=== PATIENT | male | born 1970 | race African-American/Black ===

== ENCOUNTER 2016-07-28 09:41 | Emergency (ER) | payer MEDICARE, MEDICAID ==
[~2016-07-28] VITALS: Ht 154.9 cm; Wt 127.0 kg
[~2016-07-28 09:41] MED LIST: ADVAIR DISK28 PUFFS IN; ALBUTEROL-200 PUFFS/ IH; ALBUTEROL2 PUFFS/17 IN; ALBUTEROL2.5 MG/NEB IN; AZITHROMYCIN250 MG PO; CIPRO 500MG TA500 MG PO; DELTASONE5 MG PO; DOXYCYCLINE HY100 M3 PO; DUONEB 3 MG/3 ML3 ML IH; FLEXERIL10 MG PO; HYDROCHLOROTH12.5 M1 PO; HYDROCHLOROTHIA25 M1 PO; HYDROCODONE/ACE1 TA5 PO; JENTADUETO1 TAB PO; KEFLEX 500MG.500 MG PO; LEVAQUIN 750 M750 MG PO; LEVAQUIN500 MG PO; LODINE400 MG PO; MEDROL 4MG. DOSE4 MG PO; NEURONTIN 300M300 MG PO; NORCO 325 MG-51 TAB PO; PREDNISONE 20MG20 MG; PREDNISONE 20MG20 MG PO; SALMETEROL-F28 PUFF1 IN; SINGULAIR10 MG PO; SPIRIVA18 MCG IH; SYMBICORT1 AE1 IH; TESSALON PERLE100 M1 PO; TORADOL10 M2 PO; TYLENOL W/CODEI1 TA2 PO; VENTOLIN H0.09 MG/AC IH; ZITHROMAX Z PA250 MG PO; ZITHROMAX Z-PA250 M1 PO
--- NOTE | 2016-07-28 09:53 | Emergency Room Report ---
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 Y Clinical Suspician of Infection? N Mental Status: 1 - Regular (Normal Baseline) Sepsis Risk:Possible Sepsis Risk Have you (or family members/close friends) recently traveled outside the [place]? N If Yes, where/when: Have you had exposure to infectious disease within the past month? N TB? Other? Specify: Comment The patient is brought in by ambulance. He says he has been sick for a couple of days. He has been feverish, coughing, generalized body aches, wheezing, and shortness of breath. He has a sore throat this morning. He does not remember whether he had a flu shot this year. He has asthma and chronic obstructive pulmonary disease. He is on a nebulizer at home, he did use a treatment this morning. He denies vomiting or diarrhea. ALLERGIES Coded Allergies: Penicillins (I-HIVES 04/23/15) Home Medications Reported Medications ALBUTEROL (Albuterol 0.083% Neb) 2.5 MG IN QIDP Tiotropium [place] (Spiriva) 18 MCG IH DAILY Hydrochlorothiazide (Hydrochlorothiazide 12.5MG) 12.5 MG PO DAILY Montelukast Sodium (Singulair) 10 MG PO QAM ALBUTEROL (Ventolin Hfa) 1 PUFF IH Q6H6 PRN SHORTNESS OF BREATH BUDESONIDE/FORMOTEROL FUMARATE (Symbicort 160-4.5 Mcg Inhaler) 1 PUFF IH BID LINAGLIPTIN/METFORMIN HCL (Jentadueto 2.5 MG-1000 MG Tab) 1 TAB PO BID #60 History Medical History General CAD? No Angina: No [place]: No Hypertension? Yes Hyperlipidemia? No CHF? No DVT? No PE? No COPD? Yes Asthma? Yes Anemia? No GERD? No Gastric ulcers? No GI Bleed? No Hernia? No Thyroid Problems? No Hypothyroidism? No CVA? No Seizures? No Diabetes? Yes Insulin Dependent: No Insulin Pump: No Home FSBS? Yes Renal Insuffiency? No End Stage Renal Disease? No UTI? No Stones? No BPH? No GB Disease: No Nephritic Syndrome? No Asplenia? No Hepatitis? No Sickle Cell Disease? No Arthritis? No Migraines? No Cataracts? No Glaucoma? No MRSA? No HIV? No TB? No Anxiety? No Depression? No Cancer? No More? No Immunization Hx DT/Tetanus > 10 YRS Surgical Hx Previous Surgery?Y CIRCUMCISION Social History Smoking Hx Smoker: Current Every Day Smoker Tobacco: Yes Type Cigarettes Packs/day < 1 Pack Alcohol Alcohol: Yes Review of Systems All Other Systems Reviewed and Negative Constitutional fever, malaise, weakness ENT throat pain. Respiratory cough, shortness of breath, wheezing Cardiovascular denies chest pain Gastrointestinal denies abdominal pain, denies diarrhea, denies vomiting Musculoskeletal muscle pain Psychiatric/Neurological headache (chronic, no change) Physical Exam Vital Signs Vital Signs Date Time Temp Pulse Resp B/P Pulse O2 O2 Flow FiO2 Ox Delivery Rate 07/28 1150 98 20 97/59 94 07/28 1109 96 20 126/81 94 07/28 1024 91 20 122/69 100 10 07/28 0943 98.4 97 20 130/80 98 General Appearance normal appearance, WD/WN Eye Exam - bilateral eye normal exam, bilateral eye PERRL, bilateral eye EOMI Ear, Nose, Throat hearing grossly normal, normal ENT inspection, tympanic membranes and pharynx normal Neck normal inspection, non-tender, supple, full range of motion Respiratory Status Yes: trachea midline, chest symmetrical, non productive cough. No: respiratory distress. Lung Sounds bilateral: wheezing. 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 No Results/Orders Laboratory Tests 07/28/16 1025: Influenza Type A Ag NOT DETECTED, Influenza Type B Ag NOT DETECTED 07/28/16 0950: Lactic Acid 2.4 H 07/28/16 0950: Sodium 140, Potassium 3.5, Chloride 103, Carbon Dioxide 28, BUN 15, Creatinine 1.1, Estimated Creat Clear 152, Estimated GFR (MDRD) 72, Glucose 143 H, Calcium 8.9, Total Bilirubin 0.8, AST 17, ALT 49, Alkaline Phosphatase 59, Total Protein 7.2, Albumin 3.6, Globulin 3.6 H, Albumin/Globulin Ratio 1.0 L, WBC 7.1, RBC 5.19, Hgb 16.4, Hct 47.2, MCV 91.0, RDW 13.3, Plt Count 274, MPV 6.5 L, Gran % 57.1, Gran # 4.1, Lymphocytes % 28.0, Monocytes % 4.3, Eosinophils % 9.6, Basophils % 0.9, Lymphocytes # 2.0, Monocytes # 0.3, Eosinophils # 0.7 H, Basophils # 0.1, PUBS MCHC 34.7, MCH 31.6 H Current Medication Orders Sig/Bethany Start time Last Medication Dose Route Stop Time Status Admin Azithromycin 500 MG ONCE ONE 07/28 1200 AC PO 07/28 1201 Albuterol/Ipratropium 0 .STK-MED ONE 07/28 1019 DC INH Methylprednisolone 0 .STK-MED ONE 07/28 1003 DC Sodium Succinate .ROUTE Albuterol/Ipratropium 3 ML ONCE ONE 07/28 1000 DC 07/28 INH 07/28 1001 1020 Methylprednisolone 125 MG ONCE ONE 07/28 1000 DC 07/28 Sodium Succinate IV 07/28 1001 1007 Sodium Chloride 10 ML PRN PRN 07/28 1000 AC 07/28 IV 07/29 0948 1008 Orders Procedure Date/time Status LACTIC ACID FOLLOW UP 07/28 1021 Active ELECTROCARDIOGRAM REQUEST 07/28 1006 Active RT REQUEST DUONEB 07/28 0957 Active INFLUENZA A&B ANTIGENS 07/28 0952 Complete CHEST(2 VIEWS-NOT PORTABLE) 07/28 0949 Active IV SALINE LOCK 07/28 0949 Active CULTURE, BLOOD 07/28 0949 Active LACTIC ACID 07/28 0949 Complete CBC WITH AUTO DIFF 07/28 0949 Complete CHEM 12 PROFILE 07/28 0949 Complete 12 LEAD EKG-WANDY (INITIAL) 07/28 UNK Active CM/EKG CM/EKG Comments EKG interpreted by Joo Carmen MD: Rhythm: sinus Rate: 86 [place]: normal Ectopy: none Conduction: normal ST Segment Changes: none T Wave Changes: Nonspecific flattening Q Waves: none No evidence of acute ischemia or injury Baseline wander present, but I consider the EKG adequate for accurate interpretation. XRAY/CT/US XRAY/CT/US XRAY chest Comment X-ray interpreted by Joo Carmen M.D.: increased bronchial markings in the bases, no confuluent infiltrate. Progress - 11:40 AM: Patient reexamined. Lungs are clear. He says he feels better. He feels like he can go home. I feel this is reasonable. He says that the breathing treatment here seems to be stronger than what he has at home, which is albuterol. He requests a change to DuoNeb. I will discharge on antibiotics and steroids in addition. Advised follow up with PCP. Departure Departure Disposition DC Home or Self Care(routine) Clinical Impression Primary Impression: Asthma exacerbation Secondary Impressions: Acute bronchitis Qualifiers: Bronchitis organism: unspecified organism Qualified Code: J20.9 - Acute bronchitis, unspecified Condition STABLE Referrals Tip LANDAVERDE,Tom (Family) Patient Instructions DI for Acute Bronchitis, DI for Asthma -- Adult Additional Instructions Additional instructions for SHORTNESS OF BREATH: See your physician as soon as possible for further evaluation. Return immediately if worsening shortness of breath or if vomiting, chest pain, fever, coughing of blood, or passing out. Prescriptions Current Visit Scripts IPRATROPIUM/ALBUTEROL SULFATE (Iprat-Albut 0.5-3(2.5) MG/3 Ml) 3 ML IH QIDP PRN wheezing, sob #30 AMP Prednisone (Prednisone 10MG) 10 MG PO DAILY #27 TAB 6 po on days 1-2, then decrease dose by 1 pill per day until gone Azithromycin (Zithromax) 250 MG PO DAILY #4 TAB ED Critical Care Critical Care No at 1152
[2016-07-28 10:02] LABS: HEMOGLOBIN 16.4 g/dL (14.1-18.0)
[2016-07-28] MEDS ORDERED: ZITHROMAX Z-PA250 M2 PO (11:51)
[2016-07-28] MEDS ORDERED: IPRATROPIUM BROM3 M2 IH (11:51)
[2016-07-28] MEDS ORDERED: PREDNISONE 10MG10 MG PO (11:51)
[2016-07-28 11:55] VITALS: BP 97/59
--- NOTE | 2016-07-28 13:09 | RADIOLOGY REPORT PS360 ---
CHEST(2 VIEWS-NOT PORTABLE) HISTORY: SOA, COUGH ORDERING PHYSICIAN: Joo Carmen MD PATIENT AGE: 46 years COMPARISON: 11/12/2015 FINDINGS: The cardiomediastinal silhouette and pulmonary vascularity are within normal limits. The lungs are clear without infiltrates, suspicious nodules, or pleural effusions. No acute bony abnormalities. IMPRESSION: Negative chest, no acute finding
[2016-07-29] MEDS ORDERED: TESSALON PERLE100 M1 PO (19:53)
[2016-07-29] MEDS ORDERED: LEVAQUIN 750 M750 MG PO (19:53)
[2016-07-29] MEDS ORDERED: MIRALAX(PO17 GM/1 PA PO (19:54)
== END 2016-07-28 12:00 | disposition home or self-care (01) ==
LOC: ER 09:41
PROVIDERS: Emergency Medicine
DX: J45.901 Unspecified asthma with (acute) exacerbation (principal); Z72.0 Tobacco use; J44.0 Chronic obstructive pulmonary disease with (acute) lower respiratory infection; J20.9 Acute bronchitis, unspecified; I10 Essential (primary) hypertension; E11.9 Type 2 diabetes mellitus without complications

== ENCOUNTER 2017-02-27 12:51 | Emergency (ER) | payer MEDICARE, MEDICAID ==
[~2017-02-27] VITALS: Ht 154.9 cm; Wt 131.5 kg
[~2017-02-27 12:51] MED LIST changes: +IPRATROPIUM BROM3 M2 IH; +MIRALAX(PO17 GM/1 PA PO; +PREDNISONE 10MG10 MG PO; +ZITHROMAX Z-PA250 M2 PO
[2017-02-27] MEDS ORDERED: AMLO5TAB PO (12:59)
[2017-02-27] MEDS ORDERED: CHANTIX START M1 TAB PO (12:59)
[2017-02-27] MEDS ORDERED: MEDROL 4MG. DOSE4 MG PO (13:12)
--- NOTE | 2017-02-27 13:13 | Emergency Room Report ---
See Addendum History of Present Illness Time Seen by [id number] Presenting Problem in Triage Pt arrived:Walked Presenting Problem:PT REPORTS FEELING SOA AND TIGHTNESS IN THROAT, UPPER CHEST AREA. PT REPORTS FEELING LIKE HAVING AN ASTHMA ATTACK. PT STATES BEGAN FEELING SOA LASTNIGHT, STATES WAS FINE WHEN HE WOKE UP THIS MORNING BUT THEN BEGAN FEELING SOA AGAIN CALL CENTER SUPPORT CONSULTANT. 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 N Clinical Suspician of Infection? N Mental Status: 1 - Regular (Normal Baseline) Sepsis Risk:Possible Sepsis Risk Have you (or family members/close friends) recently traveled outside the [place]? N If Yes, where/when: Have you had exposure to infectious disease within the past month? N TB? Other? Specify: Cough, bronchospasm, no sputum, no fever, for past two days, no calf pain. Hx COPD, states wheezing and using his nebs at home more often than usual. No chest pain. No sputum. ALLERGIES Coded Allergies: Penicillins (I-HIVES 07/29/16) Home Medications Active Scripts IPRATROPIUM/ALBUTEROL SULFATE (Iprat-Albut 0.5-3(2.5) MG/3 Ml) 3 ML IH QIDP PRN wheezing, sob #30 AMP Prov: 07/28/16 POLYETHYLENE GLYCOL (Miralax) 17 GM PO DAILY PRN constipation #12 MATT Prov: 07/29/16 Reported Medications ALBUTEROL (Albuterol 0.083% Neb) 2.5 MG IN QIDP Tiotropium [place] (Spiriva) 18 MCG IH DAILY Montelukast Sodium (Singulair) 10 MG PO QAM ALBUTEROL (Ventolin Hfa) 1 PUFF IH Q6H6 PRN SHORTNESS OF BREATH BUDESONIDE/FORMOTEROL FUMARATE (Symbicort 160-4.5 Mcg Inhaler) 1 PUFF IH BID LINAGLIPTIN/METFORMIN HCL (Jentadueto 2.5 MG-1000 MG Tab) 1 TAB PO BID #60 Amlodipine Besylate (Amlodipine) 5 MG PO DAILY #90 VARENICLINE TARTRATE (Chantix) 1 TAB PO DAILY #53 History Medical History General CAD? No Angina: No [place]: No Hypertension? Yes Hyperlipidemia? No CHF? No DVT? No PE? No COPD? Yes Asthma? Yes Anemia? No GERD? No Gastric ulcers? No GI Bleed? No Hernia? No Thyroid Problems? No Hypothyroidism? No CVA? No Seizures? No Diabetes? Yes Insulin Dependent: No Insulin Pump: No Home FSBS? Yes Renal Insuffiency? No End Stage Renal Disease? No UTI? No Stones? No BPH? No GB Disease: No Nephritic Syndrome? No Asplenia? No Hepatitis? No Sickle Cell Disease? No Arthritis? No Migraines? No Cataracts? No Glaucoma? No MRSA? No HIV? No TB? No Anxiety? No Depression? No Cancer? No More? No Immunization Hx DT/Tetanus > 10 YRS Surgical Hx Previous Surgery?Y CIRCUMCISION Social History Smoking Hx Smoker: Current Every Day Smoker Tobacco: Yes Type Cigarettes Packs/day < 1 Pack Alcohol Alcohol: Yes Review of Systems All Other Systems Reviewed and Negative Respiratory see HPI Physical Exam Vital Signs Vital Signs Date Time Temp Pulse Resp B/P Pulse O2 O2 Flow FiO2 Ox Delivery Rate 02/27 1253 98.3 95 24 158/117 98 General Appearance normal appearance, WD/WN, no apparent distress, obese Eye Exam - bilateral eye normal exam, bilateral eye PERRL, bilateral eye EOMI Ear, Nose, Throat hearing grossly normal, normal ENT inspection, normal pharynx, canals slightly excoriated w/o drainage or infection; TM's clear B Neck normal inspection, non-tender, supple, full range of motion (thick neck) Respiratory Status Yes: trachea midline, chest symmetrical, non tender chest, non productive cough. No: respiratory distress, tender on palpation, use of accessory muscles, pain on inspiration, pain on expiration, productive cough. Lung Sounds bilateral: normal breath sounds, lungs clear, decreased breath sounds. left: wheezing. Cardiovascular normal exam, regular rate/rhythm, no peripheral edema, no gallop, no JVD, no murmur, no rub, normal peripheral pulses Gastrointestinal normal bowel sounds, normal exam, non tender, soft, no organomegaly, no pulsatile mass, no guarding, no rebound (obese) Extremities non-tender, normal range of motion, normal inspection, normal capillary refill, no calf tenderness, no pedal edema (neg Rhys's) Strength 5 Upper Ext (L), 5 Upper Ext (R), 5 Lower Ext (L), 5 Lower Ext (R) Neurologic alert, normal exam, no motor/sensory deficits, oriented x 3 Glascow Coma Scale Glascow Coma Scale Response Value EYE response: 4 Spontaneously 4 MOTOR response: 6 OBEYS 6 VERBAL response: 5 Oriented & Converses 5 Total 15 Skin intact, normal color, warm/dry Medical Decision Making LABS/Meds/Orders Pt receiving controlled substance in ED? No Sheng was queried for this patient? No Results/Orders Current Medication Orders Sig/Bethany Start time Last Medication Dose Route Stop Time Status Admin Albuterol/Ipratropium 0 .STK-MED ONE 02/27 1304 DC INH Albuterol/Ipratropium 3 ML ONCE ONE 02/27 1300 DC INH 02/27 1301 Orders Procedure Date/time Status CHEST(2 VIEWS-NOT PORTABLE) 02/27 1300 Active RT REQUEST DUONEB 02/27 1259 Active Progress ED Progress Notes Date 02/27/17 Time 1311 Comment feeling better; sats excellent Departure Departure Time of Disposition 1311 Disposition DC Home or Self Care(routine) Clinical Impression Primary Impression: Bronchospasm Secondary Impressions: Asthma exacerbation Condition STABLE Referrals Tom Whelan MD Patient Instructions Asthma -- Adult Additional Instructions Continue nebs at home; Rx medrol dosepak; watch blood sugars closely; see Dr. Whelan next week Discharge Counseling Counseled pt/family regarding diagnosis, medications/RX, home care, follow up needs Prescriptions Current Visit Scripts Methylprednisolone (Medrol Dose Matt) 4 MG PO UD #1 MATT TAKE DIRECTED ON PACKAGING ED Critical Care Critical Care No at 1313
[2017-02-27 13:34] VITALS: BP 140/74
--- NOTE | 2017-02-27 14:03 | RADIOLOGY REPORT PS360 ---
CHEST(2 VIEWS-NOT PORTABLE) COMPARISON: PA and lateral chest 07/29/2016 HISTORY: Shortness of breath TECHNIQUE: PA and lateral chest FINDINGS: Lung rincon are well expanded. There are subtle patchy opacities in right lower lung field possibly due to atelectasis but cannot rule out a minimal pneumonic infiltrate. The right upper lung field left ocular clear. Cardiac size is normal and the vascularity is normal and is no pleural fluid. IMPRESSION: Possible early right lower lobe bronchopneumonia and suggest clinical correlation.
== END 2017-02-27 13:35 | disposition home or self-care (01) ==
LOC: ER 12:51
DX: J45.901 Unspecified asthma with (acute) exacerbation (principal); J44.9 Chronic obstructive pulmonary disease, unspecified; I10 Essential (primary) hypertension; E11.9 Type 2 diabetes mellitus without complications; F17.210 Nicotine dependence, cigarettes, uncomplicated; Z79.51 Long term (current) use of inhaled steroids; Z79.899 Other long term (current) drug therapy

== ENCOUNTER → 2017-03-22 | Outpatient (CLI) | payer MEDICARE, MEDICAID ==
[~2017-03-22] MED LIST changes: +AMLO5TAB PO; +CHANTIX START M1 TAB PO
[2017-03-22 11:54] LABS: HEMOGLOBIN 15.6 g/dL (14.1-18.0); LYMPH # 2.4 K/mm3 (0.7-4.5); LYMPH % 33.2 % (10-50)
[2017-03-22 15:15] LABS: BUN 10 mg/dL (7-18)
[2017-03-22 15:17] LABS: GFR (ESTIMATED) 81 ML/MIN (>60)
[2017-03-23 08:44] LABS: Thyroid Peroxidase (TPO) Ab 12 IU/mL (0-34)
[2017-03-23 09:38] LABS: Immunoglobulin E, Total 1223 IU/mL (0-100)
[2017-03-23 12:36] LABS: Thyroglobulin Antibody <1.0 IU/mL (0.0-0.9)
[2017-03-24 09:38] LABS: Antinuclear Antibodies, IFA Negative (.)
== END ==
LOC: LAB 10:40
PROVIDERS: Allergy & Immunology
DX: L50.8 Other urticaria (principal); J45.51 Severe persistent asthma with (acute) exacerbation; E55.9 Vitamin D deficiency, unspecified; Z79.899 Other long term (current) drug therapy

== ENCOUNTER 2017-04-09 07:53 | Emergency (ER) | payer MEDICARE, MEDICAID ==
[~2017-04-09] VITALS: Ht 154.9 cm; Wt 133.4 kg
[2017-04-09 08:08] LABS: HEMOGLOBIN 16.4 g/dL (14.1-18.0); LYMPH # 3.2 K/mm3 (0.7-4.5); LYMPH % 38.2 % (10-50)
--- NOTE | 2017-04-09 08:10 | Emergency Room Report ---
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 N Clinical Suspician of Infection? N Mental Status: 1 - Regular (Normal Baseline) Sepsis Risk:Low Sepsis Risk Have you (or family members/close friends) recently traveled outside the [place]? N If Yes, where/when: Have you had exposure to infectious disease within the past month? N TB? Other? Specify: Source patient, RN notes reviewed Exam Limitations no limitations Comment Pt has a history of Asthma and COPD and says he is on disability for them. He continues to smoke but is on Chantix trying to quit. No fever but coughing and wheezing worse at night. 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 Cardiac Chest Pain Chest pain indicative of cardiac No ALLERGIES Coded Allergies: Penicillins (I-HIVES 07/29/16) Home Medications Active Scripts Methylprednisolone (Medrol Dose [place]) 4 MG PO UD #1 SALAZAR Prov: 02/27/17 IPRATROPIUM/ALBUTEROL SULFATE (Iprat-Albut 0.5-3(2.5) MG/3 Ml) 3 ML IH QIDP PRN wheezing, sob #30 AMP Prov: 07/28/16 POLYETHYLENE GLYCOL (Miralax) 17 GM PO DAILY PRN constipation #12 SALAZAR Prov: 07/29/16 Reported Medications ALBUTEROL (Albuterol 0.083% Neb) 2.5 MG IN QIDP Tiotropium [place] (Spiriva) 18 MCG IH DAILY Montelukast Sodium (Singulair) 10 MG PO QAM ALBUTEROL (Ventolin Hfa) 1 PUFF IH Q6H6 PRN SHORTNESS OF BREATH BUDESONIDE/FORMOTEROL FUMARATE (Symbicort 160-4.5 Mcg Inhaler) 1 PUFF IH BID LINAGLIPTIN/METFORMIN HCL (Jentadueto 2.5 MG-1000 MG Tab) 1 TAB PO BID #60 Amlodipine Besylate (Amlodipine) 5 MG PO DAILY #90 VARENICLINE TARTRATE (Chantix) 1 TAB PO DAILY #53 History Medical History General CAD? No Angina: No [place]: No Hypertension? Yes Hyperlipidemia? No CHF? No DVT? No PE? No COPD? Yes Asthma? Yes Anemia? No GERD? No Gastric ulcers? No GI Bleed? No Hernia? No Thyroid Problems? No Hypothyroidism? No CVA? No Seizures? No Diabetes? Yes Insulin Dependent: No Insulin Pump: No Home FSBS? Yes Renal Insuffiency? No End Stage Renal Disease? No UTI? No Stones? No BPH? No GB Disease: No Nephritic Syndrome? No Asplenia? No Hepatitis? No Sickle Cell Disease? No Arthritis? No Migraines? No Cataracts? No Glaucoma? No MRSA? No HIV? No TB? No Anxiety? No Depression? No Cancer? No More? No Immunization Hx DT/Tetanus > 10 YRS Surgical Hx Previous Surgery?Y CIRCUMCISION Social History Smoking Hx Smoker: Current Every Day Smoker Tobacco: Yes Type Cigarettes Packs/day < 1 Pack Alcohol Alcohol: Yes Review of Systems All Other Systems Reviewed and Negative Constitutional see HPI Respiratory see HPI Cardiovascular see HPI Physical Exam Vital Signs Vital Signs Date Time Temp Pulse Resp B/P Pulse O2 O2 Flow FiO2 Ox Delivery Rate 04/09 0938 97.6 97 18 130/70 95 04/09 0855 97 22 95 04/09 0755 97.6 98 18 131/77 99 General Appearance normal appearance, WD/WN, no apparent distress Respiratory Status No: respiratory distress (but wheezing a lot). Lung Sounds bilateral: wheezing. 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 No Results/Orders Laboratory Tests 04/09/17 0755: Sodium 141, Potassium 3.8, Chloride 103, Carbon Dioxide 26, BUN 11, Creatinine 1.2, Estimated Creat Clear 145, Estimated GFR (MDRD) 65, Glucose 107 H, Calcium 9.2, Total Bilirubin 0.7, AST 17, ALT 40, Alkaline Phosphatase 70, Troponin I < 0.02, B-Natriuretic Peptide < 5, Total Protein 7.8, Albumin 4.0, Globulin 3.8 H , Albumin/Globulin Ratio 1.1, WBC 8.5, RBC 5.58, Hgb 16.4, Hct 49.6, MCV 89.0, RDW 13.5, Plt Count 291, MPV 8.9, Gran % 46.0, Gran # 3.9, Lymphocytes % 38.2, Monocytes % 6.6, Eosinophils % 8.1, Basophils % 1.1, Lymphocytes # 3.2, Monocytes # 0.6, Eosinophils # 0.7 H, Basophils # 0.1, PUBS MCHC 33.1, MCH 29.4 Current Medication Orders Sig/Bethany Start time Last Medication Dose Route Stop Time Status Admin Albuterol/Ipratropium 0 .STK-MED ONE 04/09 0834 DC INH Methylprednisolone 125 MG ONCE ONE 04/09 815 DC 04/09 Sodium Succinate IV 04/09 816 0803 Methylprednisolone 0 .STK-MED ONE 04/09 802 DC Sodium Succinate .ROUTE Albuterol/Ipratropium 3 ML ONCE ONE 04/09 08 DC 04/09 INH 04/09 801 0830 Orders Procedure Date/time Status RT Aerosol Treatment, Provide 04/09 905 Active ELECTROCARDIOGRAM REQUEST 04/09 759 Active TROPONIN I 04/09 759 Complete CBC WITH AUTO DIFF 04/09 759 Complete CHEM 12 PROFILE 04/09 759 Complete BRAIN NATRIURETIC PEPTIDE 04/09 759 Complete RT REQUEST DUONEB 04/09 758 Active XRAY/CT/US XRAY/CT/US XRAY chest XR interpretation by discussed w/radiologist Xray Results normal/NAD Departure Departure Time of Disposition 0952 Disposition DC Home or Self Care(routine) Clinical Impression Primary Impression: Acute asthma exacerbation Qualifiers: Asthma severity: mild Asthma persistence: intermittent Qualified Code: J45.21 - Mild intermittent asthma with (acute) exacerbation Condition STABLE Patient Instructions Asthma -- Adult, Chronic Obstructive Pulmonary Disease, DI for Asthma -- Adult, DI for Chronic Obstructive Pulmonary Disease Additional Instructions Advised to stop smoking and use meds as directed Discharge Counseling Counseled pt/family regarding diagnosis, test results, medications/RX, home care, follow up needs Prescriptions Current Visit Scripts Prednisone (Prednisone 5MG) 5 MG PO DIRECTED #52 TAB 6 tabs QD X 4D 4 tabs QD X 4D 2 tabs QD X 4D 1 tab QD X 4D MOXIFLOXACIN HCL (Avelox) 400 MG PO DAILY #10 TAB ED Critical Care Critical Care No If Critical Care minutes are documented, the time involved in the performance of seperately reportable procedures was not counted toward critical care time documented. I directly delivered medical care to this critically ill and/or injured patient. Timely evaluation and treatment was necessary to address the significant organ system(s) dysfunction present in this patient. at 0984
[2017-04-09 08:17] LABS: BUN 11 mg/dL (7-18)
[2017-04-09 08:18] LABS: GFR (ESTIMATED) 65 ML/MIN (>60)
--- NOTE | 2017-04-09 09:48 | RADIOLOGY REPORT PS360 ---
CHEST(2 VIEWS-NOT PORTABLE) HISTORY: Shortness of air and cough SOA ORDERING PHYSICIAN: Earnest London MD PATIENT AGE: 47 years COMPARISON: 02/27/2017 FINDINGS: The cardiomediastinal silhouette and pulmonary vascularity are within normal limits. The lungs are clear without infiltrates, suspicious nodules, or pleural effusions. No acute bony abnormalities. IMPRESSION: Negative chest, no acute finding
[2017-04-09] MEDS ORDERED: PREDNISONE 5MG.5 MG PO (09:55)
[2017-04-09] MEDS ORDERED: AVELOX400 MG PO (09:55)
[2017-04-09 10:05] VITALS: BP 130/70
--- OUTSIDE RECORDS SUMMARY | 2017-04-09 16:55 | External Medical Summary Rpt | CCD ---
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 Name Role Phone A Jose GARCIA MD PSC, A Unavailable Unavailable Jose GARCIA MD PSC [facility] Unavailable Unavailable [place], [facility] [place] [facility], Unavailable Unavailable [facility], Unavailable Unavailable [facility] BEINEKE, BEINEKE Unavailable Unavailable BEINEKE REUBEN, BEINEKE Unavailable Unavailable REUBEN BESSON SUSHMA, BESSON Unavailable Unavailable SUSHMA SALDIVAR, SALDIVAR Unavailable Unavailable SALDIVAR ALL, SALDIVAR ALL Unavailable Unavailable LIYA JUNIOR, Unavailable Unavailable LIYA JUNIOR VILA, TL L, VILA, Unavailable Unavailable TL L KARINA OLIVIA, Unavailable Unavailable KARINA OLIVIA Royal LUNA, Royal LUNA Unavailable Unavailable TITO, TITO Unavailable Unavailable TITO LEVAR, TITO Unavailable Unavailable LEVAR TITO LEVAR, TITO Unavailable Unavailable LEVAR [facility] Unavailable Unavailable INC, [facility] Unavailable Unavailable [facility]PITAL P, [facility] Unavailable Unavailable IMAGING [facility], [facility] IVANA VALDIVIA KING, Unavailable Unavailable WANDY MARSH JR, JR Unavailable Unavailable [facility], Unavailable Unavailable [facility] [place] 02, Unavailable Unavailable 02 [facility] O2, Unavailable Unavailable O2 LUTZ TRA, LUTZ TRA Unavailable Unavailable LUTZ TRA, LUTZ TRA Unavailable Unavailable Harsh Swanson MD, Unavailable Unavailable Harsh Swanson MD [facility] Unavailable Unavailable SERVICES, [facility] KIKI ANDERSON, Unavailable Unavailable FINN DUMONT JR, Unavailable Unavailable NIKHIL FINN YVETTE [facility] Unavailable Unavailable EVGENY ALEXIS MD, Unavailable Unavailable MD [facility], [facility]available [facility], [facility] DERICK SHANNAN, DERICK SHANNAN Unavailable Unavailable DERICK SHANNAN, DERICK SHANNAN Unavailable Unavailable MAYORGA JRSONY R, Unavailable Unavailable SONY MAYORGA JR R MACK WENDY, Unavailable Unavailable MACK WENDY MACK WENDY, Unavailable Unavailable MACK WENDY [facility], Unavailable Unavailable [facility], Unavailable Unavailable [facility] Unavailable Unavailable 3350, [facility] Unavailable Unavailable EQUIPME, [facility] Unavailable Unavailable E[facility], [facility] TALANOW ROL, TALANOW Unavailable Unavailable ROL TALANOW ROL, TALANOW Unavailable Unavailable ROL BOB AVA, BOB AVA Unavailable Unavailable BOB AVA, BOB AVA Unavailable [facility]available [facility] Unavailable [facility] Unavailable Unavailable [facility], [facility] Unavailable Unavailable [facility], [facility] Neville SALMERON, Unavailable Unavailable Neville SALMERON MARTIN S, Unavailable Unavailable XIOMARA MERRITT STEPHEN G, Unavailable Unavailable MARY FAGAN III MONICA, Unavailable Unavailable WEHRBLAYNE III MONICA SELF III MONICA, Unavailable Unavailable WEHRMAN III ERIC WAGGONER Unavailable Unavailable Dong Self Unavailable Unavailable Dong CAI MD, III, MD, WISE Unavailable [facility]available [facility], Unavailable [facility], Unavailable [facility]available [facility] Purpose Continuity of Care Document - 08-10-2007 through 2016 Problems Code Diagnosis DOS Provider Status J301 ALLERGIC 03-17-2017 [facility] RH[facility]IS [facility] DUE TO [place] POLLEN J3081 ALLERG 03-17-2017 [facility] D/T ANIMAL [place] CAT DOG HAIR & DANDER J3089 OTHER 03-17-2017 [facility]GIC [facility] RHINITIS [place] J449 CHRONIC 03-17-2017 [facility] OBSTRUCTIVE [facility] PULMONARY [place] DISEASE UNS J4550 SEVERE 03-17-2017 [facility] PERSISTENT [facility] ASTHMA [place] UNCOMPLICAT ED L508 OTHER 03-17-2017 [facility] URTICARIA [facility] [place] F21249 UNSPECIFIED 03-10-2017 [facility] UNCOMPLICAT [facility] ED R0602 SHORTNESS 02-27-2017 [facility] I10 ESSENTIAL 01-01-2017 [facility], HYPERTENSIO [facility] N L509 URTICARIA 01-01-2017 [facility] UNSPECIFIED [facility]YSICIANS, [facility] E119 TYPE 2 12-23-2016 [facility] MELLITUS INC WITHOUT COMPLICATIO NS H242UYV ANGIONEUROT 12-23-2016 [facility] IC EDEMA PHYSICIANS, INITIAL [facility] ENCOUNTER Z720 TOBACCO USE 12-23-2016 [facility] G4733 OBSTRUCTIVE 10-30-2016 [facility] EQU[facility] Z86203 UNSPECIFIED 07-31-2016 Vonda GARCIA ASTHMA PSC WITH ACUTE EXACERBATIO N J209 ACUTE 07-28-2016 [facility] P J440 COPD WITH 07-28-2016 [facility] P RESPIRATORY INFECTION R05 COUGH 07-28-2016 [facility] J441 CHRONIC 11-12-2015 [facility]STRUCTIVE [facility] PULMONARY INC DZ W/EXACERBAT ION M545 LOW BACK 11-12-2015 [facility] PAIN [facility] INC R0600 DYSPNEA 11-12-2015 [facility] UNSPECIFIED [facility] R1032 LEFT LOWER 11-12-2015 [facility] P59808 PAIN IN 04-30-2015 [facility] LEFT KNEE [facility]ICAL [facility]ING [facility] E1141 TYPE 2 04-25-2015 PRO[facility] DIABETES PODIATRY MELLITUS W/DIAB MONONEUROPA THY Y68715 SPONTANEOUS 04-25-2015 PROGRESSIVE RUPTURE PODIATRY FLEXOR TENDONS LT ANKLE FOOT B30592 PAIN IN 04-25-2015 PROGRESSIVE LEFT FOOT PODIATRY B353 TINEA PEDIS 04-23-2015 [facility] INC 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 INC S 91024 OBSTRUCTIVE 03-12-2015 [facility] EQU[facility] 02151 ASTHMA, 03-06-2015 [facility] UNSPECIFIED STATUS 76353 DIAB W/O 02-27-2015 [facility] COMP TYPE MEDICAL II/UNS TYPE EQUIPME UNCNTRL 4019 UNSPECIFIED 12-30-2014 [facility]SSENTIAL [facility] HYPERTENSIO INC N 486 PNEUMONIA, 12-30-2014 [facility]GANISM [facility] UNSPECIFIED INC 496 CHRONIC 12-30-2014 [facility] AIRWAY [facility] OBSTRUCTION INC NEC 29402 SHORTNESS 12-30-2014 [facility] 7862 COUGH 12-30-2014 [facility] 70565 CHEST PAIN 12-06-2014 [facility]NSPECIFIED [facility] 55056 ABDOMINAL 10-19-2014 [facility] PAIN, MEDICAL UNSPECIFIED IMAGING ASS SITE 5180 PULMONARY 04-19-2014 [facility]SE [facility] 67085 PAINFUL 02-21-2014 [facility] RESPIRATION 95012 ASTHMA 10-09-2013 ERIC YOUNGER UNSPECIFIED WITH EXACERBATIO N 18765 WHEEZING 10-09-2013 [facility] V140 PERSONAL 10-09-2013 [place] HISTORY OF [facility] ALLERGY TO [facility] P PENICILLIN 305.1 305.1 06-12-2013 [place] TOBACCO USE [facility] Hospital 380.4 380.4 06-12-2013 [place] IMPACTED [facility] 3804 IMPACTED 06-12-2013 [facility]ENC[facility] SERVICES 401.9 401.9 06-12-2013 [place] HYPERTENSIO [facility] N NOS Hospital 33021 OTHER 10-04-2012 [facility] NONSPECIFIC MEDICAL ABNORMAL IMAGING ASS FINDING OF LUNG FIELD 491.21 491.21 09-25-2012 [facility] BRONCHITIS, W (ACUTE) EXACERBATIO N 00061 OBSTRUCTIVE 09-25-2012 [place] CHRONIC [facility] BRONCHITIS HOSPITAL P WITH EXACERBATIO N 493.90 493.90 09-25-2012 [place] ASTHMA, [facility] UNSPECIFIED Hospital 7231 CERVICALGIA 04-07-2012 [facility] LOC DOMENICA 7241 PAIN IN 04-07-2012 [facility] THORACIC LOC DOMENICA SPINE 462 ACUTE 02-25-2012 WEHRMAN III PHARYNGITIS MONICA 4660 ACUTE 01-21-2012 [place] BRONCHITIS [facility] INC 3360 SYRINGOMYEL 01-07-2012 BOB AVA IA AND SYRINGOBULB [place] 7245 UNSPECIFIED 12-31-2011 MACK BACKACHE WENDY 7812 ABNORMALITY 12-31-2011 [facility] OF GAIT LOCH DOMENICA 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 7820 DISTURBANCE 11-26-2011 MEL ROL OF SKIN SENSATION 67965 OTHER 10-10-2009 Royal LUNA [place] [address] HIGH 10-03-2009 DERICK CAMPBELL ALTITUDE PERIODIC BREATHING 61006 EXTRINSIC 10-03-2009 DERICK CAMPBELL ASTHMA, UNSPECIFIED V472 OTHER 10-03-2009 DERICK CAMPBELL CARDIORESPI RATORY PROBLEMS V0481 NEED 04-23-2009 [facility] PROPHYLACTI SONY SCHREIBER C VACCINATION &INOCULATIO N FLU 51899 OTHER 04-15-2009 [facility] DISEASES OF (P1017) LUNG NOT UNIV RADIOL ELSEWHERE ASSOC CLASSIFIED 55353 ACUTE 04-15-2009 EVGENY ALEXIS BRONCHBERNA Guerra 03187 PAIN IN 11-05-2008 [facility] JOINT, (P1017) ANKLE AND UNIV RADIOL FOOT ASSOC 91633 UNSPECIFIED 11-05-2008 SANDI, SITE OF LIYA Guerra ANKLE SPRAIN AND STRAIN E8888 OTHER FALL 11-05-2008 LIYA JUNIOR 1629 MALIGNANT 05-06-2008 [facility], NEOPLASM INC BRONCHUS&EVON NG UNSPEC SITE 05351 OBST 04-27-2008 SONY MEADE JR BRONCHITIS W/ACUTE BRONCHITIS 47860 UNSPECIFIED 11-23-2007 [place] [facility] 69584 OTHER 11-23-2007 [facility] AND OF [facility] 7840 HEADACHE 11-23-2007 [facility] 7806 FEVER & OTH 08-10-2007 IVANA VALDIVIA PHYSIOLOGIC DISTURBANCE S TEMP REG B35.3 TINEA PEDIS E55.9 VITAMIN D DEFICIENCY, UNSPECIFIED J18.9 PNEUMONIA, UNSPECIFIED ORGANISM J20.9 ACUTE BRONCHITIS, UNSPECIFIED J32.9 CHRONIC SINUSITIS, UNSPECIFIED J44.1 CHRONIC OBSTRUCTIVE PULMONARY DISEASE W (ACUTE) EXACERBATIO N J45.901 UNSPECIFIED ASTHMA WITH (ACUTE) EXACERBATIO N J45.909 UNSPECIFIED ASTHMA, UNCOMPLICAT ED J98.01 ACUTE BRONCHOSPAS M K42.9 UMBILICAL HERNIA WITHOUT OBSTRUCTION OR GANGRENE K59.00 CONSTIPATIO N, UNSPECIFIED L50.9 URTICARIA, UNSPECIFIED M54.9 DORSALGIA, UNSPECIFIED M72.2 PLANTAR FASCIAL FIBROMATOSI S M79.672 PAIN IN LEFT FOOT R07.81 PLEURODYNIA R07.9 CHEST PAIN, UNSPECIFIED T14.8 OTHER INJURY OF UNSPECIFIED BODY REGION T78.3XXA ANGIONEUROT IC EDEMA, INITIAL ENCOUNTER Z72.0 TOBACCO USE Z79.899 OTHER JAIL (CURRENT) DRUG THERAPY Allergies, Adverse Reactions, Alerts Type Drug Allergy Adverse Reaction to Substance Substance Reaction Severity PCN (penicillin) I-HIVES Intermediate Clinical Alert Notifications Alert Asthma: no influenza vaccine in the last 365 days Diabetes: no A1C in the last 6 months Diabetes: no eye exam in the last 365 days Diabetes: no influenza vaccine in the last 365 days Diabetes: no lipid panel in the last 365 days Diabetes: no urine protein screening in the last 365 days Medications Na ND Rx Da Fi Fi Am Da Di Ph RX Ph St me C No te ll ll ou ys ag ar # ys at rm s nt no ma ic us Or Da si cy ia de te s n re d IP 00 02 03 90 7 00 RI Ac RA 48 -1 -1 .0 00 TE ti T- 70 4- 0- 00 01 ve AL 20 20 20 17 AI BU 10 17 17 10 D T 3 92 PH 0. AR 5- MA 3( CY 2. 5) #3 93 MG 8 /3 ML BE 67 02 03 30 10 00 RI Ac NZ 87 -1 -1 .0 00 TE ti ON 70 5- 0- 00 01 ve AT 10 20 20 17 AI AT 50 17 17 13 D E 1 87 PH 10 AR 0 MA MG CY CA #3 PS 93 UL 8 E IP 00 04 0 No RA 48 -2 T- 70 3- Lo AL 20 20 ng BU 10 13 er T 1 0. Ac 5- ti 3( ve 2. 5) MG /3 ML IP 00 04 0 No RA 48 -1 T- 70 4- Lo AL 20 20 ng BU 10 13 er T 1 0. Ac 5- ti 3( ve 2. 5) MG /3 ML Me 00 04 0 No th 00 -1 yl 90 4- Lo pr 19 20 ng ed 00 13 er ni 9 so Ac lo ti ne ve So d Tian cc in a Sa 63 04 0 No li 80 -1 ne 70 4- Lo 10 20 ng Fl 07 13 er us 5 h Ac 10 ti ML ve Sy ri ng e Vital Signs 06-12-2013 07:21 Name Value Interpretat Reference Comment ion Range Body 98.5 [degF] Temperature BP 80 mm[Hg] Diastolic BP Systolic 136 mm[Hg] Heart 96 /min Rate/Pulse O2% 98 % Respiratory 20 /min Rate 06-12-2013 07:16 Name Value Interpretat Reference Comment ion Range BP 79 mm[Hg] Diastolic BP Systolic 135 mm[Hg] Heart 84 /min Rate/Pulse O2% 97 % Respiratory 24 /min Rate 10-04-2012 20:15 Name Value Interpretat Reference Comment ion Range Body 98.5 [degF] Temperature BP 96 mm[Hg] Diastolic BP Systolic 146 mm[Hg] Heart 72 /min Rate/Pulse O2% 98 % Respiratory 18 /min Rate 10-04-2012 19:04 Name Value Interpretat Reference Comment ion Range BP 88 mm[Hg] Diastolic BP Systolic 141 mm[Hg] Heart 119 /min Rate/Pulse O2% 98 % Respiratory 24 /min Rate 09-25-2012 11:20 Name Value Interpretat Reference Comment ion Range Body 98.4 [degF] Temperature BP 50 mm[Hg] Diastolic BP Systolic 121 mm[Hg] Heart 84 /min Rate/Pulse O2% 96 % Respiratory 20 /min Rate 09-25-2012 10:52 Name Value Interpretat Reference Comment ion Range BP 60 mm[Hg] Diastolic BP Systolic 141 mm[Hg] Heart 87 /min Rate/Pulse O2% 98 % Respiratory 18 /min Rate Results Labs Lab Lab Date Result Refere Interp Status Commen Order Detail nces retati t Range on Serum or plasma 25-hydroxyvitamin D federico (03-22-2017 10:43) Serum = 10.0 30.0-10 complet or 017 ng/mL 0.0 ed plasma 10:43 25-hydr oxyvita min D federico Comment: Vitamin D deficiency has been defined by the Darwin of Comment: Medicine and an Endocrine Society practice guideline as a Comment: level of serum 25-OH vitamin D less than 20 ng/mL (1,2). Comment: The Endocrine Society went on to further define vitamin D Comment: insufficiency as a level between 21 and 29 ng/mL (2). Comment: 1. IOM (Darwin of Medicine). 2010. Dietary reference Comment: intakes for calcium and D. Eng [place]: The Comment: National AcademChangeMob Press. Comment: 2. Shanon MF, [place], Ger [place], et al. Comment: Evaluation, treatment, and prevention of vitamin D Comment: deficiency: an Endocrine Society clinical practice Comment: guideline. JCEM. 2010; 96(7):1911-30. Serum thyroperoxidase antibody assay (03-22-2017 10:43) Serum = 12 0-34 complet thyrope 017 IU/mL ed roxidas 10:43 e antibod y assay Comment: Performed at: [facility] Comment: [address], [place] [id number] Comment: Briquette Machine Operator Helper: Merlin Castaneda PhD, Phone: [phone] Serum or plasma thyroglobulin antibody a (03-22-2017 10:43) Serum < 1.0 0.0-0.9 complet or 017 IU/mL ed plasma 10:43 thyrogl obulin antibod y a Comment: Thyroglobulin Antibody measured by Giovanna Arely Comment: Methodology Comment: Performed at: [facility] Comment: [address], [place] [id number] Comment: Briquette Machine Operator Helper: Merlin Castaneda PhD, Phone: [phone] Serum or plasma IgE measurement (units/v (03-22-2017 10:43) Serum = 1223 0-100 complet or 017 IU/mL ed plasma 10:43 IgE measure ment (units/ v Comment: Performed at: [facility] Comment: [address], [place] [id number] Comment: Briquette Machine Operator Helper: Merlin Castaneda PhD, Phone: [phone] Antinuclear Antibodies, IFA (03-22-2017 10:43) Serum = . complet nuclear 017 Negativ ed 10:43 e antibod y titer by immunof l Comment: Negative <1:80 Comment: Borderline 1:80 Comment: Positive >1:80 Comment: Performed at: [facility] Comment: [address], [place] [id number] Comment: Briquette Machine Operator Helper: Merlin Castaneda PhD, Phone: [phone] CBC w auto diff (03-22-2017 10:43) Blood = 242 142-424 complet platele 017 K/mm3 ed t count 10:43 Automat = 9.6 7.4-10. complet ed 017 fl 4 ed blood 10:43 platele t mean volume patti [place] % = 5.1 % 1.7-9.3 complet 017 ed 10:43 Absolut = 0.4 0.1-1.0 complet e 017 K/mm3 ed monocyt 10:43 e count Automat = 92.4 82.2-97 complet ed 017 fl .8 ed erythro 10:43 cyte mean corpusc ular v Automat = 31.7 31.8-35 complet ed 017 g/dl .4 ed erythro 10:43 cyte mean corpusc ular h Mean = 29.3 27-31.2 complet corpusc 017 pg ed ular 10:43 hemoglo bin (MCH) determ Lymphoc = 33.2 10-50 complet yte 017 % ed count, 10:43 blood, automat ed Absolut = 2.4 0.7-4.5 complet e 017 K/mm3 ed lymphoc 10:43 yte count Blood = 15.6 14.1-18 complet hemoglo 017 g/dL .0 ed bin 10:43 measure ment (mass/v olum Blood = 49.2 42.0-52 complet hematoc 017 % .0 ed rit 10:43 (volume fractio n) Granulo = 53.4 37.0-80 complet cyte 017 % .0 ed percent 10:43 age Blood = 3.8 1.3-8.0 complet granulo 017 K/mm3 ed cytes 10:43 automat ed count (numb Automat = 7.4 % 0.1-12. complet ed 017 0 ed blood 10:43 eosinop hils/10 0 leukocy t Automat = 0.5 0.0-0.4 complet ed 017 K/mm3 ed blood 10:43 eosinop hil count Baso % = 0.8 % 0.1-2.0 complet 017 ed 10:43 Automat = 0.1 0-0.2 complet ed 017 K/MM3 ed blood 10:43 basophi l count (count/ vo Red = 5.32 4.6-6.2 complet blood 017 M/mm3 ed cell 10:43 count Blood = 7.1 4.8-10. complet leukocy 017 K/MM3 8 ed viviana 10:43 count (number /volume ) Automat = 13.5 11.5-17 complet ed 017 % .5 ed erythro 10:43 cyte distrib ution width BASIC METABOLIC PANEL (09-25-2012 10:15) Glucose 121 74-106 complet 013 mg/dL ed Bld-mCn 10:15 c BUN 15 7-18 complet Bld-mCn 013 mg/dL ed c 10:15 Creat 1.3 0.8-1.3 complet SerPl-m 013 mg/dL ed Cnc 10:15 ESTIMAT 139 50-200 complet ED 013 ML/MIN ed CREATIN 10:15 INE CLEARAN CE GFR 61 Greater complet (ESTIMA 013 ML/MIN than ed THIAGO) 10:15 60 Sodium 140 136-145 complet SerPl-s 013 mmoL/L ed Cnc 10:15 Potassi 3.8 3.5-5.1 complet um 013 mmoL/L ed SerPl-s 10:15 Cnc Chlorid 103 98-107 complet e 013 mmoL/L ed SerPl-s 10:15 Cnc CO2 29 21.0-32 complet SerPl-s 013 mmoL/L .0 ed Cnc 10:15 Calcium 8.9 8.5-10. complet 013 mg/dL 1 ed SerPl-m 10:15 Cnc CBC with AUTO DIFF (09-25-2012 10:15) WBC # 09-25-2 8.3 4.8-10. complet Bld 013 K/MM3 8 ed Auto 10:15 RBC # 09-25-2 5.38 4.6-6.2 complet Bld 013 M/mm3 ed Auto 10:15 Hgb 09-25- 15.9 14.1-18 complet Bld-mCn 013 g/dL .0 ed c 10:15 Hct Fr 48.5 % 42.0-52 complet Bld 013 .0 ed 10:15 MCV RBC 90.3 fl 82.2-97 complet 013 .8 ed 10:15 MCH RBC 29.5 pg 27-31.2 complet Qn 013 ed Auto 10:15 MEAN 04-14-2 32.7 31.8-35 complet CORPUSC 013 g/dl .4 ed ULAR 10:15 HGB CONC RDW RBC 09-25-2 14.1 % 11.5-17 complet Auto 013 .5 ed 10:15 Platele 14-2 281 142-424 complet t Bld 013 K/mm3 ed Ql 10:15 Manual MEAN 09-25-2 7.7 fl 7.4-10. complet PLATELE 013 4 ed T 10:15 VOLUME Granulo 09-25-2 47.6 % 37.0-80 complet cytes 013 .0 ed Fr Bld 10:15 Auto LYMPH % 14-2 38.9 % 10-50 complet 013 ed 10:15 Monocyt 14-2 5.2 % 1.7-9.3 complet es Fr 013 ed Bld 10:15 Auto Eosinop -14-2 7.8 % 0.1-12. complet hil Fr 013 0 ed Bld 10:15 Auto Basophi -14-2 0.5 % 0.1-2.0 complet ls Fr 013 ed Bld 10:15 Auto Granulo 14-2 4.0 1.3-8.0 complet cytes # 013 K/mm3 ed Bld 10:15 Auto Lymphoc -14-2 3.2 0.7-4.5 complet ytes Fr 013 K/mm3 ed Bld 10:15 Auto Monocyt -14-2 0.4 0.1-1.0 complet es # 013 K/mm3 ed Bld 10:15 Auto Eosinop -14-2 0.7 0.0-0.4 complet hil # 013 K/mm3 ed Bld 10:15 Auto Basophi -14-2 0.0 0-0.2 complet ls # 013 K/MM3 ed Bld 10:15 Auto Procedures Procedure DOS Code Location Performer Comment PERCUTANE 67604 [facility]AE OUS TESTS 7 [facility]/[place] [facility] KEN[facility]ICK EXTRACTS INTRACUTA 44178 ALLER[facility] BAE NEOUS 7 PARTNERS TESTS OF [place] W/[place] K[facility] EXTRACTS ALBUTEROL J7613 YOUR YOUR INHAL 7 PHARMACY PHARMACY NON-CP [facility] PROD THRU DME U DOSE 1 MG PHRM Q0513 YOUR YOUR DISPENSIN [address] [facility] INHALATIO N RX; PER 30 DAYS ADMN SET A7003 YOUR YOUR SM VOL 7 PHARMACY PHARMACY [facility] PNEUMAT NEBULIZR DISPBL RADIOLOGI 66888 [facility] 7 MEDICAL CHEST 2 IMAGING VIEWS ASS FRONTAL&L ATERAL PHRM Q0513 YOUR YOUR DISPENSIN [address] [facility] INHALATIO N RX; PER 30 DAYS ADMN SET A7003 YOUR YOUR SM VOL 7 PHARMACY PHARMACY [facility] PNEUMAT NEBULIZR DISPBL ALBUTEROL J7613 YOUR YOUR INHAL 7 PHARMACY PHARMACY NON-[facility] PROD THRU DME U DOSE 1 MG THERAPEUT 88632 [facility] GOMEZ IC 7 [facility] PROPHYLAC INC INC TIC/DX INJECTION SUBQ/IM THER 42630 J[facility]ON GOMEZ PROPH/DX 7 [facility] NJX IV INC INC PUSH SINGLE/1S T SBST/DRUG PRESSURIZ 64048 J[facility]ON GOMEZ ED/NONPRE 7 [facility] SSURIZED INC INC INHALATIO N TREATMENT THERAPEUT 28365 [facility] GOMEZ IC 7 [facility] INJECTION INC INC IV PUSH EACH NEW DRUG ALBUTEROL J7613 YOUR YOUR INHAL [facility] PROD THRU DME U DOSE 1 MG ADMN SET A7003 YOUR YOUR SM VOL 7 PHARMACY PHARMACY [facility] PNEUMAT NEBULIZR DISPBL PHRM Q0513 YOUR YOUR DISPENSIN 7 PHARMACY PHARMACY [facility] INHALATIO N RX; PER 30 DAYS TUBING A7037 [facility] MANN USED WITH 7 HOME HOME POSITIVE MEDICAL MEDICAL AIRWAY EQUIPME EQUIPME PRESSURE DEVICE FULL FACE A7030 [facility] MANN MASK 7 HOME HOME USED MEDICAL MEDICAL W/POS EQUIPME EQUIPME ARWAY PRESS DEVICE EA HEADGEAR A7035 JOHNATHAN MANN USED 7 HOME HOME W/POSITIV MEDICAL MEDICAL E AIRWAY EQUIPME EQUIPME PRESSURE DEVICE ADMN SET A7003 YOUR YOUR SM VOL 7 PHARMACY PHARMACY [facility] PNEUMAT NEBULIZR DISPBL ALBUTEROL J7613 YOUR YOUR INHAL 7 PHARMACY PHARMACY NON-CP [facility] PROD THRU DME U DOSE 1 MG RADIOLOGI 93884 [facility] EXAM 7 MEDICAL CHEST 2 IMAGING VIEWS ASS FRONTAL&L ATERAL IAADI 64640 [facility] G[facility]Z INFFLUENZ 7 [facility] A A VIRUS INC INC IAADI 00019 [facility] G[facility]Z INFLUENZA 7 [facility] B VIRUS INC INC BLOOD 13858 [facility] GOMEZ COUNT 7 [facility] COMPLETE INC INC AUTO&AUTO DIFRNTL WBC COMPREHEN 06630 [facility] GOMEZ SIVE 7 MEM H[facility] METABOLIC INC INC PANEL RADIOLOGI 52459 [facility] EXAM 7 MEDICAL CHEST 2 IMAGING VIEWS ASS FRONTAL&L ATERAL CULTURE 73479 J[facility]ON GOMEZ BACTERIAL 7 [facility] H[facility] BLOOD INC INC AEROBIC W/[place] [address] JASON GOMEZ LACTATE 7 [facility] INC INC PRESSURIZ 49641 J[facility]ON GOMEZ ED/NONPRE 7 [facility] SSURIZED INC INC INHALATIO N TREATMENT ECG 66745 JASON SABA JR ROUTINE 7 [facility] W/LEAST P 12 LDS I&R ONLY THER 81314 JASON GOMEZ PROPH/DX 7 [facility] NJX IV INC INC PUSH SINGLE/1S T SBST/DRUG ECG 13972 JASON GOMEZ ROUTINE 7 [facility] ECG INC INC W/LEAST 12 LDS TRCG ONLY W/O I&R TUBING A7037 JOHNATHAN MANN USED WITH 7 HOME HOME POSITIVE MEDICAL MEDICAL AIRWAY EQUIPME EQUIPME PRESSURE DEVICE FULL FACE A7030 JOHNATHAN MANN MASK 7 HOME HOME USED MEDICAL MEDICAL W/POS EQUIPME EQUIPME ARWAY PRESS DEVICE EA FILTER A7038 JOHNATHAN SINGHRELL DISPBL 7 HOME HOME USED MEDICAL MEDICAL W/POS EQUIPME EQUIPME ARWAY PRESSURE DEVICE ADMN SET A7003 YOUR YOUR SM VOL 6 PHARMACY PHARMACY NONFIL maniaTV [facility] PNEUMAT NEBULIZR DISPBL ALBUTEROL [id number] YOUR YOUR INHAL 6 PHARMACY PHARMACY [employer] [facility] PROD THRU DME U DOSE 1 MG TUBING A7037 JOHNATHAN MANN USED WITH 6 HOME HOME POSITIVE MEDICAL MEDICAL AIRWAY EQUIPME EQUIPME PRESSURE DEVICE WATR A7046 JOHNATHAN MANN CHAMB 6 HOME HOME HUMDIFIR MEDICAL MEDICAL USED EQUIPME EQUIPME W/POS ARWAY PRSS DEVC R FULL FACE A7030 JOHNATHAN MANN MASK 6 HOME HOME USED MEDICAL MEDICAL W/POS EQUIPME EQUIPME ARWAY PRESS DEVICE EA ADMN SET A7003 YOUR YOUR SM VOL 6 PHARMACY PHARMACY [facility] PNEUMAT NEBULIZR DISPBL HEADGEAR A7035 JOHNATHAN MANN USED 6 HOME HOME W/POSITIV MEDICAL MEDICAL E AIRWAY EQUIPME EQUIPME PRESSURE DEVICE ALBUTEROL J7613 YOUR YOUR INHAL 6 PHARMACY PHARMACY [employer] [facility] PROD THRU DME U DOSE 1 MG ALBUTEROL J7613 YOUR YOUR INHAL 6 PHARMACY PHARMACY [employer] [facility] PROD THRU DME U DOSE 1 MG ADMN SET A7003 YOUR YOUR SM VOL 6 PHARMACY PHARMACY [facility] PNEUMAT NEBULIZR DISPBL NEBULIZER [id number] JOHNATHAN MANN WITH 6 HOME HOME COMPRESSO MEDICAL MEDICAL R EQUIPME EQUIPME THERAPEUT [id number] JASON GOMEZ IC 6 [facility] INJECTION [facility] INC IV PUSH EACH NEW DRUG PRESSURIZ [id number] JASON GOMEZ ED/NONPRE 6 [facility] SSURIZED INC INC INHALATIO N TREATMENT CREATINE [id number] JASON GOMEZ KINASE MB 6 [facility] [place] [id number] JASON GOMEZ AMYLASE 6 [place] [address] VERONIKA COLLINS ABDOMEN & 6 MEDICAL OLIVIA PELVIS IMAGING W/O ASS CONTRAST MATERIAL CREATINE 03847 JASON GOMEZ KINASE 6 [facility] TOTAL [facility] [place] [place] [address] JASON GOMEZ LIPASE 6 [facility] INC INC RADIOLOGI 88530 [place] C 6 MEDICAL OLIVIA EXAMINATI IMAGING ON CHEST ASS SINGLE VIEW FRONTAL THER 26413 JASON GOMEZ PROPH/DX 6 [facility] NJX IV INC INC PUSH SINGLE/1S T SBST/[place] [address] JASON GOMEZ TROPONIN 6 [facility] QUANTITAT INC INC KHUSHBU BLOOD 94107 JASON GOMEZ COUNT 6 [facility] COMPLETE INC INC AUTO&AUTO DIFRNTL WBC RADIOLOGI 44745 JASON VUONGON C EXAM 6 [facility] CHEST 2 INC INC VIEWS FRONTAL&L ATERAL COMPREHEN 62990 JASON GOMEZ SIVE 6 [facility] METABOLIC INC INC PANEL NEBULIZER E0570 JOHNATHAN MANN WITH 6 HOME HOME COMPRESSO MEDICAL MEDICAL R EQUIPME EQUIPME FULL FACE A7030 JOHNATHAN MANN MASK 6 HOME HOME USED MEDICAL MEDICAL W/POS EQUIPME EQUIPME ARWAY PRESS DEVICE EA TUBING A7037 JOHNATHAN MANN USED WITH 6 HOME HOME POSITIVE MEDICAL MEDICAL AIRWAY EQUIPME EQUIPME PRESSURE DEVICE NEBULIZER E0570 JOHNATHAN MANN WITH 6 HOME HOME COMPRESSO MEDICAL MEDICAL R EQUIPME EQUIPME ALBUTEROL J7613 YOUR YOUR INHAL 6 PHARMACY PHARMACY NON-COCC [facility] PROD THRU DME U DOSE 1 MG ADMN SET A7003 YOUR YOUR SM VOL 6 PHARMACY PHARMACY [facility] NEBULIZR DISPBL PHRM Q0513 YOUR YOUR DISPENSIN 6 PHARMACY PHARMACY G Prepmatic [facility] INHALATIO N RX; PER 30 DAYS NEBULIZER E0570 JOHNATHAN MANN WITH 6 HOME HOME COMPRESSO MEDICAL MEDICAL R EQUIPME EQUIPME ADMN SET A7003 YOUR YOUR SM VOL 6 PHARMACY PHARMACY [facility] P[facility] NEBULIZR DISPBL PHRM Q0513 YOUR YOUR DISPENSIN 6 PHARMACY PHARMACY G [facility] INHALATIO N RX; PER 30 DAYS ALBUTEROL J7613 YOUR YOUR INHAL 6 PHARMACY PHARMACY NON-COCC [facility] PROD THRU DME U DOSE 1 MG NEBULIZER E0570 JOHNATHAN MANN WITH 6 HOME HOME COMPRESSO MEDICAL MEDICAL R EQUIPME EQUIPME NEBULIZER E0570 JOHNATHAN MANN WITH 6 HOME HOME COMPRESSO MEDICAL MEDICAL R EQUIPME EQUIPME HEADGEAR A7035 JOHNATHAN MANN USED 6 HOME HOME W/POSITIV MEDICAL MEDICAL E AIRWAY EQUIPME EQUIPME PRESSURE DEVICE TUBING A7037 JOHNATHAN MANN USED WITH 6 HOME HOME POSITIVE MEDICAL MEDICAL AIRWAY EQUIPME EQUIPME PRESSURE DEVICE FULL FACE A7030 JOHNATHAN MANN MASK 6 HOME HOME USED MEDICAL MEDICAL W/POS EQUIPME EQUIPME ARWAY PRESS DEVICE EA NEBULIZER E0570 JOHNATHAN MANN WITH 5 HOME HOME COMPRESSO MEDICAL MEDICAL R EQUIPME EQUIPME NEBULIZER E0570 JOHNATHAN MANN WITH 5 HOME HOME COMPRESSO MEDICAL MEDICAL R EQUIPME EQUIPME RADIOLOGI 56859 [facility] C EXAM 5 MEDICAL REUBEN KNEE IMAGING COMPLETE ASS 4/MORE VIEWS WALKING L4360 PROGRESSI PROGRESSI BOOT 5 VE VE PNEUMATC PODIATRY PODIATRY &/ VACUUM PREFAB CUSTM FIT RADEX 11273 [facility] FOOT 5 MEDICAL REUBEN COMPLETE IMAGING MINIMUM 3 [place] [address] JASON GOMEZ BLOOD/URI 5 [facility] C ACID INC INC BLOOD 03941 JASON GOMEZ COUNT 5 [facility] COMPLETE INC INC AUTO&AUTO DIFRNTL WBC SEDIMENTA 58386 JASON GOMEZ TIELVER RATE 5 [facility] RBC INC INC NON-AUTOM ATED COMPREHEN 89611 JASON GOMEZ SIVE 5 [facility] METABOLIC INC INC PANEL NEBULIZER E0570 JOHNATHAN MANN WITH 5 HOME HOME COMPRESSO MEDICAL MEDICAL R EQUIPME EQUIPME FULL FACE A7030 JOHNATHAN MANN MASK 5 HOME HOME USED MEDICAL MEDICAL W/POS EQUIPME EQUIPME ARWAY PRESS DEVICE EA FILTER A7038 JOHNATHAN MANN DISPBL 5 HOME HOME USED MEDICAL MEDICAL W/POS EQUIPME EQUIPME ARWAY PRESSURE DEVICE PHRM Q0513 YOUR YOUR DISPENSIN 5 PHARMACY PHARMACY G Schedule Savvy [facility] INHALATIO N RX; PER 30 DAYS ADMN SET A7003 YOUR YOUR SM VOL 5 PHARMACY PHARMACY [facility] [facility] PNE[facility] NEBULIZR DISPBL ALBUTEROL J7613 YOUR YOUR INHAL 5 PHARMACY PHARMACY NON-[facility] PROD THRU DME U DOSE 1 MG NEBULIZER E0570 JOHNATHAN MANN WITH 5 HOME HOME COMPRESSO MEDICAL MEDICAL R EQUIPME EQUIPME HOME E0607 JOHNATHAN MANN BLOOD 5 HOME HOME GLUCOSE MEDICAL MEDICAL MONITOR EQUIPME EQUIPME BLD GLU A4253 JOHNATHAN MANN TEST/REAG 5 HOME HOME T STRIPS MEDICAL MEDICAL HOME BLD EQUIPME EQUIPME GLU MON-50 LANCETS A4259 JOHNATHAN MANN PER BOX 5 HOME HOME OF 100 MEDICAL MEDICAL EQUIPME EQUIPME NEBULIZER E0570 JOHNATHAN MANN WITH 5 HOME HOME COMPRESSO MEDICAL MEDICAL R EQUIPME EQUIPME TUBING A7037 JOHNATHAN MANN USED WITH 5 HOME HOME POSITIVE MEDICAL MEDICAL AIRWAY EQUIPME EQUIPME PRESSURE DEVICE PHRM Q0513 YOUR YOUR DISPENSIN 5 PHARMACY PHARMACY G FEE [facility] INHALATIO N RX; PER 30 DAYS ADMN SET A7003 YOUR YOUR SM VOL 5 [facility]UL[facility] DISPBL ALBUTEROL J7613 YOUR YOUR INHAL 5 PHARMACY PHARMACY [facility] PROD THRU DME U DOSE 1 MG CREATINE 49807 JASON GOMEZ KINASE 5 [facility] TOTAL INC INC CREATINE 41596 JASON GOMEZ KINASE MB 5 [facility] FRACTION INC INC ONLY THERAPEUT 64375 JASON GOMEZ IC 5 [facility] INJECTION INC INC IV PUSH EACH NEW DRUG PRESSURIZ 91837 JASON GOMEZ ED/NONPRE 5 [facility] SSURIZED INC INC INHALATIO N TREATMENT THER 65710 JASON GOMEZ PROPH/DX 5 [facility] NJX IV INC INC PUSH SINGLE/1S T SBST/[place] [address] JASON GOMEZ TROPONIN 5 [facility] QUANTITAT INC INC KHUSHBU RADIOLOGI 63037 [place] [facility] C EXAM 5 MEDICAL OLIVIA CHEST 2 IMAGING VIEWS ASS FRONTAL&L ATERAL BLOOD 56300 JASON GOMEZ COUNT 5 [facility] COMPLETE INC INC AUTO&AUTO DIFRNTL WBC COMPREHEN 61087 JASON GOMEZ SIVE 5 [facility] METABOLIC INC INC PANEL ADMN SET A7003 YOUR YOUR SM VOL 5 PHARMACY PHARMACY [facility] PNEUMAT NEBULIZR DISPBL PHARM [id number] YOUR YOUR DISPEN 5 PHARMACY PHARMACY [facility] RX; INITIAL 30-DAY SUPPLY ALBUTEROL J7613 YOUR YOUR INHAL 5 PHARMACY PHARMACY [facility] PROD THRU DME U DOSE 1 MG RADIOLOGI 60848 [facility] ALL C EXAM 5 MEDICAL CHEST 2 IMAGING VIEWS ASS FRONTAL&[place] [address] [place] SALDIVAR ALL ABDOMEN & 5 MEDICAL PELVIS IMAGING W/O ASS CONTRAST MATERIAL TUBING A7037 JOHNATHAN JOHNATHAN USED WITH 5 HOME HOME POSITIVE MEDICAL MEDICAL AIRWAY EQUIPME EQUIPME PRESSURE DEVICE FULL FACE A7030 JOHNATHAN JOHNATHAN MASK 5 HOME HOME USED MEDICAL MEDICAL W/POS EQUIPME EQUIPME ARWAY PRESS DEVICE EA FILTER A7038 JOHNATHAN JOHNATHAN DISPBL 5 HOME HOME USED MEDICAL MEDICAL W/POS EQUIPME EQUIPME ARWAY PRESSURE DEVICE FULL FACE A7030 JOHNATHAN JOHNATHAN MASK 5 HOME HOME USED MEDICAL MEDICAL W/POS EQUIPME EQUIPME ARWAY PRESS DEVICE EA HEADGEAR A7035 JOHNATHAN JOHNATHAN USED 5 HOME HOME W/POSITIV MEDICAL MEDICAL E AIRWAY EQUIPME EQUIPME PRESSURE DEVICE WATR A7046 JOHNATHAN JOHNATHAN CHAMB 4 HOME HOME HUMDIFIR MEDICAL MEDICAL USED EQUIPME EQUIPME W/POS ARWAY PRSS DEVC R RADIOLOGI 63232 [facility] C EXAM 4 MEDICAL REUBEN CHEST 2 IMAGING VIEWS ASS FRONTAL&L ATERAL TUBING A7037 JOHNATHAN JOHNATHAN USED WITH 4 HOME HOME POSITIVE MEDICAL MEDICAL AIRWAY EQUIPME EQUIPME PRESSURE DEVICE FULL FACE A7030 JOHNATHAN JOHNATHAN MASK 4 HOME HOME USED MEDICAL MEDICAL W/POS EQUIPME EQUIPME ARWAY PRESS DEVICE EA FILTER A7038 JOHNATHAN MANN DISPBL 4 HOME HOME USED MEDICAL MEDICAL W/POS EQUIPME EQUIPME ARWAY PRESSURE DEVICE ECG 71118 TITO SWANSON ROUTINE 4 LEVAR LEVAR ECG W/LEAST 12 LDS I&R ONLY RADIOLOGI 36000 [facility] C EXAM 4 MEDICAL OLIVIA CHEST 2 IMAGING VIEWS ASS FRONTAL&L ATERAL RADIOLOGI 54229 [place] [facility]INA C EXAM 4 MEDICAL OLIVIA CHEST 2 IMAGING VIEWS ASS FRONTAL&L ATERAL ECG 75103 JASON ALONSO ROUTINE 4 [facility] W/LEAST P 12 LDS I&R ONLY FILTER A7038 JOHNATHAN MANN DISPBL 4 HOME HOME USED MEDICAL MEDICAL W/POS EQUIPME EQUIPME ARWAY PRESSURE DEVICE FULL FACE A7030 JOHNATHAN MANN MASK 3 HOME HOME USED MEDICAL MEDICAL W/POS EQUIPME EQUIPME ARWAY PRESS DEVICE EA TUBING A7037 JOHNATHAN MANN USED WITH 3 HOME HOME POSITIVE MEDICAL MEDICAL AIRWAY EQUIPME EQUIPME PRESSURE DEVICE HEADGEAR A7035 JOHNATHAN MANN USED 3 HOME HOME W/POSITIV MEDICAL MEDICAL E AIRWAY EQUIPME EQUIPME PRESSURE DEVICE TUBING A7037 JOHNATHAN MANN USED WITH 3 HOME HOME POSITIVE MEDICAL MEDICAL AIRWAY EQUIPME EQUIPME PRESSURE DEVICE WATR A7046 JOHNATHAN MANN CHAMB 3 HOME HOME HUMDIFIR MEDICAL MEDICAL USED EQUIPME EQUIPME W/POS ARWAY PRSS DEVC R TUBING A7037 JOHNATHAN MANN USED WITH 3 HOME HOME POSITIVE MEDICAL MEDICAL AIRWAY EQUIPME EQUIPME PRESSURE DEVICE RADIOLOGI 89878 [facility] C EXAM 3 MEDICAL OLIVIA CHEST 2 IMAGING VIEWS ASS FRONTAL&L ATERAL RADIOLOGI 79455 JASON GOMEZ C EXAM 3 [facility] CHEST 2 INC INC VIEWS FRONTAL&L ATERAL IAADI 96933 JASON GOMEZ INFLUENZA 3 [facility] B VIRUS INC INC IAADI 90212 JASON GOMEZ INFFLUENZ 3 [facility] A A VIRUS INC INC BLOOD 66475 JASON GOMEZ COUNT 3 [facility] COMPLETE INC INC AUTO&[place] [address] JASON GOMEZ TROPONIN 3 [facility] QUANTITAT INC INC KHUSHBU BASIC 10146 JASON GOMEZ METABOLIC 3 [facility] PANEL INC INC CALCIUM TOTAL ECG 66520 JASON GUPTA ROUTINE 3 [facility] W/LEAST P 12 LDS I&R ONLY PRESSURIZ 63613 JASON GOMEZ ED/NONPRE 3 [facility] SSURIZED INC INC INHALATIO N TREATMENT CREATINE 34910 JASON GOMEZ KINASE MB 3 [facility] FRACTION INC INC ONLY CREATINE 25857 JASON GOMEZ KINASE 3 [facility] TOTAL INC INC ECG 01693 JASON GOMEZ ROUTINE 3 [facility] ECG INC INC W/LEAST 12 LDS TRCG ONLY W/O I&R THER 74025 JASON GOMEZ PROPH/DX 3 [facility] NJX IV INC INC PUSH SINGLE/1S T SBST/DRUG FILTER A7038 JOHNATHAN MANN DISPBL 2 HOME HOME USED MEDICAL MEDICAL W/POS EQUIPME EQUIPME ARWAY PRESSURE DEVICE FULL FACE A7030 JOHNATHAN SINGHRELL MASK 2 HOME HOME USED MEDICAL MEDICAL W/POS EQUIPME EQUIPME ARWAY PRESS DEVICE EA HEADGEAR A7035 JOHNATHAN MANN USED 2 HOME HOME W/POSITIV MEDICAL MEDICAL E AIRWAY EQUIPME EQUIPME PRESSURE DEVICE INJECTION A9579 AVERION-M AVERION-M 2 AHLOCH AHLOCH GADOLINIU DOMENICA DOMENICA M BASED MR CONTRAST NOS ML MRI 42099 AVERION-M AVERION-M SPINAL 2 AHLOCH AHLOCH CANAL DOMENICA DOMENICA CERVICAL W/O & W/CONTR MATRL THERAPEUT 07525 JASON GOMEZ IC 2 [facility] PROPHYLAC INC INC TIC/DX INJECTION SUBQ/[place] [address] JASON GOMEZ STREPTOCO 2 [facility] CCUS INC INC GROUP A IAADI 21298 JASON GOMEZ INFLUENZA 2 [facility] B VIRUS INC INC IAADI 19643 JASON GOMEZ INFFLUENZ 2 [facility] A A VIRUS INC INC HEADGEAR A7035 JOHNATHAN MANN USED 2 HOME HOME W/POSITIV MEDICAL MEDICAL E AIRWAY EQUIPME EQUIPME PRESSURE DEVICE WATR A7046 JOHNATHAN MANN CHAMB 2 HOME HOME HUMDIFIR MEDICAL MEDICAL USED EQUIPME EQUIPME W/POS ARWAY PRSS DEVC R FULL FACE A7030 JOHNATHAN MANN MASK 2 HOME HOME USED MEDICAL MEDICAL W/POS EQUIPME EQUIPME ARWAY PRESS DEVICE EA COMPREHEN 37163 JASON GOMEZ SIVE 2 [facility] METABOLIC INC INC PANEL CULTURE 86848 JASON GOMEZ BACTERIAL 2 [facility] BLOOD INC INC AEROBIC W/ID ISOLATES NATRIURET 65925 JASON GOMEZ IC 2 [facility] PEPTIDE INC INC BLOOD 77650 JASON GOMEZ COUNT 2 [facility] COMPLETE INC INC AUTO&[place] [address] JASON GOMEZ TROPONIN 2 [facility] QUANTITAT INC INC KHUSHBU RADIOLOGI 58445 KARINA KARINA C 2 OLIVIA OLIVIA EXAMINATI ON CHEST SINGLE VIEW FRONTAL ECG 10669 JASON GOMEZ ROUTINE 2 [facility] ECG INC INC W/LEAST 12 LDS TRCG ONLY W/O I&R THERAPEUT 64686 JASON GOMEZ IC 2 [facility] INJECTION INC [place] [address] JASON GOMEZ INFUSION 2 [facility] THERAPY/P INC INC ROPHYLAXI S /DX 1ST TO 1 HR PRESSURIZ 54835 JASON GOMEZ ED/NONPRE 2 [facility] SSURIZED INC INC INHALATIO N TREATMENT RHYTHM 94264 JASON GOMEZ ECG 1-3 2 [facility] LEADS INC INC TRACING ONLY W/O I&R CREATINE 25056 JASON GOMEZ KINASE MB 2 [facility] FRACTION INC INC ONLY CREATINE 66031 JASON GOMEZ KINASE 2 [facility] TOTAL INC INC MRI 29465 AVERION-M AVERION-M SPINAL 2 AHLOCH AHLOCH CANAL DOMENICA DOMENICA CERVICAL W/O & W/CONTR MATRL MRI BRAIN 39523 AVERION-M AVERION-M BRAIN 2 AHLOCH AHLOCH STEM W/O DOMENICA DOMENICA W/CONTRAS T MATERIAL INJECTION A9579 AVERION-M AVERION-M 2 AHLOCH AHLOCH GADOLINIU DOMENICA DOMENICA M BASED MR CONTRAST NOS ML MRI 93718 LUTZ TRA LUTZ TRA SPINAL 2 CANAL THORACIC W/CONTRAS T MATRL MRI 35711 [place] SPINAL 2 ROL ROL CANAL THORACIC W/O CONTRAST MATRL RADEX 45125 JASON GOMEZ SPINE 2 [facility] THORACIC INC INC 3 VIEWS ALBUTEROL J7613 [facility] INHAL 2 PHARMACY PHARMACY NON-CP 3350 3350 PROD THRU DME U DOSE 1 MG PHRM Q0513 [facility] DISPENSIN 2 PHARMACY PHARMACY G FEE 3350 3350 INHALATIO N RX; PER 30 DAYS TUBING A7037 JOHNATHAN MANN USED WITH 2 HOME HOME POSITIVE MEDICAL MEDICAL AIRWAY EQUIPME EQUIPME PRESSURE DEVICE WATR A7046 JOHNATHAN MANN CHAMB 2 HOME HOME HUMDIFIR MEDICAL MEDICAL USED EQUIPME EQUIPME W/POS ARWAY PRSS DEVC R FULL FACE A7030 JOHNATHAN MANN MASK 2 HOME HOME USED MEDICAL MEDICAL W/POS EQUIPME EQUIPME ARWAY PRESS DEVICE EA HEADGEAR A7035 JOHNATHAN MANN USED 2 HOME HOME W/POSITIV MEDICAL MEDICAL E AIRWAY EQUIPME EQUIPME PRESSURE DEVICE BLOOD 25683 JASON GOMEZ COUNT 1 [facility] COMPLETE INC INC AUTO&[place] [address] JASON GOMEZ TROPONIN 1 [facility] QUANTITAT INC INC KHUSHBU RADIOLOGI 88879 JASON GOMEZ C EXAM 1 [facility] CHEST 2 INC INC VIEWS FRONTAL&L ATERAL BASIC 10481 JASON GOMEZ METABOLIC 1 [facility] PANEL INC INC CALCIUM TOTAL CREATINE 96534 JASON JASON KINASE 1 [facility] TOTAL INC INC CREATINE 77802 JASON JASON KINASE MB 1 [facility] [place] [address] JASON GOMEZ INFUSION 1 [facility] THERAPY/P INC INC ROPHYLAXI S /DX 1ST TO 1 HR THERAPEUT 19855 JASON JASON IC 1 [facility] INJECTION INC INC IV PUSH EACH NEW DRUG RHYTHM 93742 JASON GOMEZ ECG 1-3 1 [facility] LEADS INC INC TRACING ONLY W/O I&R ECG 99283 MCKEMIE MCKEMIE ROUTINE 1 JR MONICA JR MONICA ECG W/LEAST 12 LDS I&R ONLY PRESSURIZ 38636 JASON GOMEZ ED/NONPRE 1 [facility] SSURIZED INC INC INHALATIO N TREATMENT ECG 92972 JASON GOMEZ ROUTINE 1 [facility] ECG INC INC W/LEAST 12 LDS TRCG ONLY W/O I&R CONTINUOU E0601 [facility] S 1 E O2 E O2 POSITIVE AIRWAY PRESSURE DEVICE HUMDIFIR E0562 [facility] HEATED 1 E O2 E O2 USED W/POS ARWAY PRESSURE DEVICE BASIC 35529 JASON GOMEZ METABOLIC 1 [facility] PANEL INC INC CALCIUM TOTAL RADIOLOGI 80706 KARINA COLLINS C EXAM 1 OLIVIA OLIVIA CHEST 2 VIEWS FRONTAL&[place] [address] JASON GOMEZ TROPONIN 1 [facility] QUANTITAT INC INC KHUSHBU BLOOD 69285 JASON GOMEZ COUNT 1 [facility] COMPLETE INC INC AUTO&AUTO DIFRNTL WBC ECG 95089 JASON GOMEZ ROUTINE 1 [facility] ECG INC INC W/LEAST 12 LDS TRCG ONLY W/O I&R THER 14035 JASON GOMEZ PROPH/DX 1 [facility] NJX IV INC INC PUSH SINGLE/1S T SBST/DRUG PRESSURIZ 62621 JASON GOMEZ ED/NONPRE 1 [facility] SSURIZED INC INC INHALATIO N TREATMENT CREATINE 40712 JASON GOMEZ KINASE MB 1 [facility] FRACTION INC INC ONLY CREATINE 02476 JASON GOMEZ KINASE 1 [facility] TOTAL INC INC CONTINUOU E0601 [facility] S 1 E O2 E O2 POSITIVE AIRWAY PRESSURE DEVICE HUMDIFIR E0562 [facility] HEATED 1 E O2 E O2 USED W/POS ARWAY PRESSURE DEVICE HUMDIFIR E0562 [facility] HEATED 1 E O2 E O2 USED W/POS ARWAY PRESSURE DEVICE CONTINUOU E0601 [facility] S 1 E O2 E O2 POSITIVE AIRWAY PRESSURE DEVICE CONTINUOU E0601 [facility] 1 E O2 E O2 POSITIVE AIRWAY PRESSURE DEVICE HUMDIFIR E0562 [facility] HEATED 1 E O2 E O2 USED W/POS ARWAY PRESSURE DEVICE HUMDIFIR E0562 [facility] HEATED 1 E O2 E O2 USED W/POS ARWAY PRESSURE DEVICE CONTINUOU E0601 [facility] S 1 E O2 E O2 POSITIVE AIRWAY PRESSURE DEVICE CONTINUOU E0601 [facility] 1 E O2 E O2 POSITIVE AIRWAY PRESSURE DEVICE HUMDIFIR E0562 [facility] HEATED 1 E O2 E O2 USED W/POS ARWAY PRESSURE DEVICE WATR A7046 [facility] 1 E O2 E O2 HUMDIFIR USED W/POS ARWAY PRSS DEVC R CONTINUOU E0601 [facility] S 1 E O2 E O2 POSITIVE AIRWAY PRESSURE DEVICE HUMDIFIR E0562 [facility] HEATED 1 E O2 E O2 USED W/POS ARWAY PRESSURE DEVICE ECG 59308 ALONSO GUPTA ROUTINE 1 SUSHMA SUSHMA ECG W/LEAST 12 LDS I&R ONLY HUMDIFIR E0562 [facility] HEATED 1 E O2 E O2 USED W/POS ARWAY PRESSURE DEVICE CONTINUOU E0601 [facility] S 1 E O2 E O2 POSITIVE AIRWAY PRESSURE DEVICE CONTINUOU E0601 [facility] S 0 E O2 E O2 POSITIVE AIRWAY PRESSURE DEVICE HUMDIFIR E0562 [facility] HEATED 0 E O2 E O2 USED W/POS ARWAY PRESSURE DEVICE HUMDIFIR E0562 [facility] HEATED 0 E O2 E O2 USED W/POS ARWAY PRESSURE DEVICE CONTINU E0601 [facility] S 0 E O2 E O2 POSITIVE AIRWAY PRESSURE DEVICE CONTINUOU E0601 [facility] S 0 E O2 E O2 POSITIVE AIRWAY PRESSURE DEVICE HUMDIFIR E0562 [facility] HEATED 0 E O2 E O2 USED W/POS ARWAY PRESSURE DEVICE HUMDIFIR E0562 [facility] HEATED 0 E O2 E O2 USED W/POS ARWAY PRESSURE DEVICE CONTINU E0601 [facility] S 0 E O2 E O2 POSITIVE AIRWAY PRESSURE DEVICE POLYSOM 83629 [facility] 6/>YRS 1 Y OF Y OF SLEEP [facility] W/CPAP E HOS E HOS 4/> ADDL DILCIA ATTND RADIOLOGI 39545 [facility] C EXAM 0 Y OF Y OF CHEST 2 [facility] VIEWS E HOS E HOS FRONTAL&L ATERAL RADIOLOGI 84115 JULITO VILA C EXAM 0 TL L TL L CHEST 2 VIEWS FRONTAL&L ATERAL RADIOLOGI 57434 [facility] C 0 IVANA G IVANA G EXAMINATI ON CHEST SINGLE VIEW FRONTAL THER 95045 [facility] PROPH/DX 0 Y OF Y OF NJX IV [facility] PUSH E E SINGLE/1S [facility]PITAL [facility] T SBST/DRUG DETER 15123 DERICK CAMPBELL RESIST TO 0 AIRFLO OSCILLATO RY/PLETHY SMOGRAP THRC GAS 96475 DERICK CAMPBELL VOL 0 CARBON 20010 DERICK CAMPBELL MONOXIDE 0 DIFFW/CAP PULMONARY 49565 DERICK SHANNAN DERICK SHANNAN STRESS 0 TESTING SIMPLE CV STRS 63050 RYLAN FAGAN, TST 0 MARY Sanchez XERS&/OR RX CONT ECG I&R ONLY MYOCARDIA 66941 RYLAN FAGAN, L SPECT 0 MARY Sanchez MULTIPLE STUDIES RADIOLOGI 14280 VYLETA, VYLETA, C EXAM 0 XIOMARA SOLANO S CHEST 2 VIEWS FRONTAL&L ATERAL RADIOLOGI 77376 U OF L U OF L C EXAM 9 ([id number]) ([id number]) CHEST 2 UNIV UNIV VIEWS RADIOL RADIOL FRONTAL&L ASSOC ASSOC ATERAL RADIOLOGI 18670 U OF L U OF L C EXAM 9 (P1017) (P1017) CHEST 2 UNIV UNIV VIEWS RADIOL RADIOL FRONTAL&L ASSOC ASSOC ATERAL RADEX 41394 U OF L U OF L ANKLE 9 (P1017) (P1017) COMPLETE UNIV UNIV MINIMUM 3 RADIOL RADIOL VIEWS ASSOC ASSOC HUMDIFIR E0562 [facility] HEATED 9 E 02 E 02 USED W/POS ARWAY PRESSURE DEVICE RESP ASST E0470 [facility] DEV 9 E 02 E 02 BI-LEVL PRSS CAPABILIT Y W/O BACKU RADIOLOGI 78693 U OF L U OF L C EXAM 9 (P1017) (P1017) CHEST 2 UNIV UNIV VIEWS RADIOL RADIOL FRONTAL&L ASSOC ASSOC ATERAL RESP ASST E0470 [facility] DEV 9 E 02 E 02 BI-LEVL PRSS CAPABILIT Y W/O BACKU HUMDIFIR E0562 [facility] HEATED 9 E 02 E 02 USED W/POS ARWAY PRESSURE DEVICE HUMDIFIR E0562 [facility] HEATED 8 E 02 E 02 USED W/POS ARWAY PRESSURE DEVICE RESP ASST E0470 [facility] DEVC 8 E 02 E 02 BI-LEVL PRSS CAPABILIT Y W/O BACKU NEBULIZER E0570 YAQUELIN JAMISON, WITH 8 INC INC COMPRESSO R O2 CONC 1 E1390 [facility] [place] 8 INC INC 85%/>02 CONC AT PRSC FLW RATE POLYSOM 95301 UNIVERSIT UNIVERSIT 6/>YRS 8 Y OF Y OF SLEEP NATA PEACE W/CPAP E E 4/> [facility] DILCIA ATTND INITIAL 50976 [facility] 8 JR, SONY JR, SONY CARE/DAY R R 70 MINUTES RADIOLOGI 36213 U OF L U OF L C EXAM 8 (P1017) (P1017) CHEST 2 [facility] UNIV VIEWS RADIOL RADIOL FRONTAL&L ASSOC ASSOC ATERAL O2 CONC 1 E1390 [facility], [facility], [place] 8 INC INC 85%/>02 CONC AT PRSC FLW RATE NEBULIZER E0570 [facility], WITH 8 INC INC COMPRESSO R O2 CONC 1 E1390 [facility], [place] 8 INC INC 85%/>02 CONC AT PRSC FLW RATE NEBULIZER E0570 [facility], WITH 8 INC INC COMPRESSO R O2 CONC 1 E1390 [facility], [facility], [place] 8 INC INC 85%/>02 CONC AT PRSC FLW RATE NEBULIZER E0570 [facility], [facility], WITH 8 INC INC COMPRESSO R O2 CONC 1 E1390 [facility], [facility], [place] 8 INC INC 85%/>02 CONC AT PRSC FLW RATE POLYSOM 28280 [place] 6/>YRS 8 U, FINN U, FINN SLEEP 4/> ADD DILCIA ATTND NEBULIZER E0570 [facility], [facility], WITH 8 INC INC COMPRESSO R O2 CONC 1 E1390 [facility], [facility], [place] 8 INC INC 85%/>02 CONC AT PRSC FLW RATE NEBULIZER E0570 [facility], WITH 8 INC INC COMPRESSO R NEBULIZER E0570 [facility], WITH 8 INC INC COMPRESSO R NEBULIZER E0570 [facility], WITH 8 INC INC COMPRESSO R ADMN SET A7005 YAQUELIN JAMISON, W/SM VOL 8 INC INC NONFILTR NEBULIZR NON-DISPB L RADIOLOGI 14213 KING VALDIVIA C EXAM 8 IVANA G IVANA G CHEST 2 VIEWS FRONTAL&L ATERAL IRRIGATIO 96.52 M. Danis Swanson MD Encounters Encounter Start End Date Code Location Performer Type Date OFFICE 22212 [facility] OUTPATIEN 7 7 PARTNERS T VISIT OF [facility] 40 CO MINUTES EMERGENCY 80580 [facility] 7 7 [facility] T VISIT LOW/MODER SEVERITY [facility]OSP[facility] - 7 7 [facility] OUT[facility]EN [facility] T EMERGENCY 15943 ALEXANDRE SWANSON 7 7 PHYSICIAN DEPARTMEN S, [facility] T VISIT HIGH/URGE NT SEVERITY HOSPITAL [facility] - 7 7 [facility] T EMERGENCY 53075 [facility] 7 7 [facility] T VISIT MODERATE SEVERITY [facility] 97625 [facility] LANDA[facility] T VISIT PSC 15 MINUTES EMERGENCY 82721 [facility] 7 7 [facility] T VISIT HIGH/URGE NT SEVERITY [facility]OSP[facility] - 7 7 [facility] T HOSP[facility] 6 6 [facility] OUT[facility]IEN [facility] T EMERGENCY 62921 JASON 6 6 [facility]MEN [facility] T VISIT HIGH/URGE NT SEVERITY HOSPITAL JASON - 5 5 [facility] OUTPATIEN [facility] T EMERGENCY 86663 JASON 5 5 [facility] DEPARTMEN INC T VISIT LOW/MODER SEVERITY HOSPITAL JASON - 5 5 [facility] OUTPATIEN [facility] T HOSPITAL JASON - 5 5 [facility] OUTPATIEN INC T EMERGENCY 82671 JASON 5 5 [facility] DEPARTMEN INC T VISIT MODERATE SEVERITY Emergency JESSICA Swanson MD (ER) 3 06:43 3 07:24 [facility] EMERGENCY 25498 LAWANDA SWANSON 3 3 EMERGENCY [facility] [facility] DEPARTMEN SERVICES T VISIT MODERATE SEVERITY Emergency JESSICA Mendoza (ER) 3 18:20 3 20:16 [facility] Emergency JESSICA Self (ER) 3 10:22 3 11:22 [facility] EMERGENCY 00342 LAWANDA SELF DEPT 3 3 EMERGENCY III [facility] VISIT SERVICES HIGH SEVERITY& THREAT [facility] JASON - 3 3 [facility] OUTPATIEN INC T EMERGENCY 96388 JASON 3 3 [facility] DEPARTMEN INC T VISIT MODERATE SEVERITY HOSPITAL JASON - 2 2 [facility] OUTPATIEN INC T EMERGENCY 34072 MONSE SELF 2 2 III MONICA III MONICA DEPARTMEN T VISIT HIGH/URGE NT SEVERITY EMERGENCY 73673 JASON 2 2 [facility] DEPART[facility] INC T VISIT MODERATE SEVERITY HOSPITAL JASON - 2 2 [facility] OUTPATIEN INC T EMERGENCY 61503 JASON 2 2 [facility] DEPARTMEN INC T VISIT HIGH/URGE NT SEVERITY OFFICE 82112 BOB ESCALANTE OUTPATIEN 2 2 T VISIT 10 MINUTES OFFICE 98725 FREDERICK MACK OUTPATIEN 2 2 WENDY NGUYEN T NEW 45 MINUTES HOSPITAL JASON - 2 2 [facility] OUTPATIEN INC T EMERGENCY 19838 JASON 1 1 [facility] DEPARTMEN INC T VISIT HIGH/URGE NT SEVERITY HOSPITAL JASON [facility] 1 1 [facility] OUTPATIEN [facility] JASON - 1 1 [facility] T EMERGENCY 72411 JASON 1 1 [facility] VISIT HIGH/URGE NT SEVERITY HOSPITAL UNIVERSIT - 0 0 Y OF OUTPATIEN [facility] HOSPITAL UNIVERSIT [facility] 0 0 Y OF OUTPATIEN [facility]ERSIT - 0 [facility] 08187 Royal LUNA D 0 0 [facility] T VISIT HIGH/URGE NT SEVERITY OFFICE 26008 TIERRA MAYORGA OUTPATIEN 9 9 , SONY JR, SONY T VISIT R R 15 MINUTES EMERGENCY 25548 EVGENY PARKEREN 9 9 MD REUBEN ALEXIS MD [facility] T VISIT HIGH/URGE NT SEVERITY [facility]OSPITAL [facility] 67126 SANDI JUNIOR, 9 9 LIYA Guerra [facility] T VISIT MODERATE SEVERITY EMERGENCY 19589 UNIVERSIT 9 9 Y OF [facility] VISIT E LOW/MODER HOSPITAL SEVERITY EMERGENCY 63317 JARON SALMERON, 9 9 S J S J [facility] T VISIT HIGH/URGE NT SEVERITY OFFICE 73221 [facility] 9 9 U, FINN U, FINN T NEW 30 MINUTES HOSPITAL [facility] 8 [facility]
--- OUTSIDE RECORDS SUMMARY | 2017-04-09 16:55 | External Medical Summary Rpt | CCD ---
Author Author , SAMIR Organization SAMIR Address Unknown Phone [email or web address] Care Team Providers Care Vascular Ultrasound Technician Name Role Phone A Jose GARCIA MD [...] LEVAR TITO LEVAR, TITO Unavailable Unavailable LEVAR [facility] Unavailable Unavailable INC, [facility] Unavailable Unavailable [facility] P, [facility] Unavailable Unavailable IM[facility], [facility] IVANA VALDIVIA KING, Unavailable Unavailable WANDY MARSH JR, JR Unavailable Unavailable [facility], Unavailable Unavailable [facility] [place] 02, Unavailable Unavailable 02 [facility], Unavailable Unavailable O2 LUTZ TRA, LUTZ TRA Unavailable Unavailable L[facility] TRA, [facility] TRA Unavailable Unavailable Harsh Swanson MD, Unavailable Unavailable Harsh Swanson MD [facility] Unavailable Unavailable SERVICES, [facility] KIKI ANDERSON, Unavailable Unavailable FINN [...] [facility] OF L (P1017) [facility] Unavailable [facility]available [facility] Unavailable Unavailable [facility], [facility] Neville SALMERON, Unavailable Unavailable Neville SALMERON MARTIN [...] 03-17-2017 [facility] URTICARIA [facility] [id number] UNSPECIFIED 03-10-2017 YOUR [facility] UNCOMPLICAT [facility] ED R0602 SHORTNESS 02-27-2017 [place] [facility] I10 ESSENTIAL 01-01-2017 [facility] PRIMARY [facility]ANS, HYPERTENSIO [facility] N L509 URTICARIA 01-01-2017 [place] UNSPECIFIED PHYSICIANS, [facility] E119 TYPE 2 12-23-2016 [facility] MELLITUS INC WITHOUT COMPLICATIO NS [id number] ANGIONEUROT 12-23-2016 [facility] IC EDEMA PHYSICIANS, INITIAL [facility] ENCOUNTER Z720 TOBACCO USE 12-23-2016 [facility] G4733 OBSTRUCTIVE 10-30-2016 [facility] ADULT MEDICAL PEDIATRIC EQUIPME U36041 UNSPECIFIED 07-31-2016 Vonda GARCIA AST[facility]MA PSC WITH ACUTE EXACERBATIO N J209 ACUTE 07-28-2016 [facility] P J440 COPD WITH 07-28-2016 [facility] P RESPIRATORY INFECTION R05 COUGH 07-28-2016 [place] [facility] J441 CHRONIC 11-12-2015 [facility] OBSTRUCTIVE [facility] PULMONARY INC DZ W/EXACERBAT ION M545 LOW BACK 11-12-2015 [facility] PAIN [facility] INC R0600 DYSPNEA 11-12-2015 [place] UNSPECIFIED MEDICAL IMAGING ASS R1032 LEFT LOWER 11-12-2015 [place] [facility] V39516 PAIN IN 04-30-2015 [place] LEFT KNEE MEDICAL IM[facility]ING ASS E1141 TYPE 2 04-25-2015 PROGRESSIVE DIABETES PODIATRY MELLITUS W/DIAB MONONEUROPA THY [id number] SPONTANEOUS 04-25-2015 PROGRESSIVE RUPTURE PODIATRY FLEXOR TENDONS LT ANKLE FOOT Y72206 PAIN IN 04-25-2015 PROGRESSIVE LEFT FOOT PODIATRY B353 TINEA PEDIS 04-23-2015 [facility] INC 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 INC S 58007 OBSTRUCTIVE 03-12-2015 [facility] APNEA MEDICAL EQUIPME 52504 ASTHMA, 03-06-2015 YOUR UNSPECIFIED PHARMACY , LLC UNSPECIFIED STATUS 67025 DIAB W/O 02-27-2015 [facility] MENTION HOME COMP TYPE MEDICAL II/UNS TYPE EQUIPME UNCNTRL 4019 UNSPECIFIED 12-30-2014 [facility] ESSENTIAL [facility] HYPERTENSIO INC N 486 PNEUMONIA, 12-30-2014 [facility] ORGANISM [facility] UNSPECIFIED INC 496 CHRONIC 12-30-2014 [facility] AIRWAY [facility] OBSTRUCTION INC NEC 86900 SHORTNESS 12-30-2014 [place] [facility] 7862 COUGH 12-30-2014 [place] [facility] 28069 CHEST PAIN 12-06-2014 [place] UNSPECIFIED [facility]ICAL IM[facility]ING ASS 49461 ABDOMINAL 10-19-2014 [place] PAIN, MEDICAL UNSPECIFIED IMAGING ASS SITE 5180 PULMONARY 04-19-2014 [place] COLL[facility]SE [facility] 78783 PAINFUL 02-21-2014 [facility] RESPIRATION 20556 ASTHMA 10-09-2013 ERIC YOUNGER UNSPECIFIED WITH EXACERBATIO N 41222 WHEEZING 10-09-2013 [place] [facility] V140 PERSONAL 10-09-2013 [place] [facility] ALLERGY TO [facility] 305.1 305.1 06-12-2013 [place] TOBACCO USE [facility] 380.4 380.4 06-12-2013 [place] IMPACTED [facility] 3804 IMPACTED 06-12-2013 [facility] 401.9 401.9 06-12-2013 [place] HYPERTENSIO [facility] N NOS Hospital 09962 OTHER 10-04-2012 [place] NONSPECIFIC MEDICAL ABNORMAL IMAGING ASS FINDING OF LUNG FIELD 491.21 491.21 09-25-2012 [facility] Hospital BRONCHITIS, W (ACUTE) EXACERBATIO N 02017 OBSTRUCTIVE 09-25-2012 [place] [facility]RONIC [facility] BRONCHITIS HOSPITAL P WITH EXACERBATIO N 493.90 493.90 09-25-2012 [place] ASTHMA, [facility] UNSPECIFIED Hospital 7231 CERVICALGIA 04-07-2012 [facility] LOC DOMENCIA 7241 PAIN IN 04-07-2012 [facility] THORACIC LOC DOMENICA SPINE 462 ACUTE 02-25-2012 WEHRMAN III PHARYNGITIS MONICA 4660 ACUTE 01-21-2012 [place] [facility]ON[facility]ITIS [facility] INC 3360 SYRINGOMYEL 01-07-2012 BOB AVA IA AND SYRINGOBULB [place] 7245 UNSPECIFIED 12-31-2011 MACK BACKACHE WENDY 7812 ABNORMALITY 12-31-2011 [facility] OF GAIT LOCH DOMENICA 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 7820 DISTURBANCE 11-26-2011 MEL ROL OF SKIN SENSATION 59721 OTHER 10-10-2009 Royal [place] D[place] [address] HIGH 10-03-2009 DERICK CAMPBELL ALTITUDE PERIODIC BREATHING 02210 EXTRINSIC 10-03-2009 DERICK CAMPBELL ASTHMA, UNSPECIFIED V472 OTHER 10-03-2009 DERICK CAMPBELL CARDIORESPI RATORY PROBLEMS V0481 NEED 04-23-2009 [facility] PROPHYLACTI SONY SCHREIBER C VACCINATION &INOCULATIO N FLU 34773 OTHER 04-15-2009 [facility] DISEASES OF (P1017) LUNG NOT UNIV RADIOL ELSEWHERE ASSOC CLASSIFIED 40965 ACUTE 04-15-2009 EVGENY ALEXIS BRONCHBERNA Guerra 76010 PAIN IN 11-05-2008 U [facility] L JOINT, (P1017) ANKLE AND UNIV RADIOL FOOT ASSOC 63225 UNSPECIFIED 11-05-2008 SANDI, SITE OF LIYA Guerra ANKLE SPRAIN AND STRAIN E8888 OTHER FALL 11-05-2008 LIYA JUNIOR 1629 MALIGNANT 05-06-2008 [facility], NEOPLASM INC BRONCHUS&EVON NG UNSPEC SITE 39938 OBST 04-27-2008 SONY MEADE JR BRONCHITIS W/ACUTE BRONCHITIS 92377 UNSPECIFIED 11-23-2007 SELMA SLEEP OF APNEA [facility] 71186 OTHER 11-23-2007 [facility] AND OF FATIGUE [facility] 7840 HEADACHE 11-23-2007 [facility] 7806 FEVER & OTH 08-10-2007 IVANA VALDIVIA [...] INITIAL ENCOUNTER Z72.0 TOBACCO USE Z79.899 OTHER ASSISTED (CURRENT) DRUG THERAPY Allergies, Adverse Reactions, Alerts [...] D deficiency has been defined by the [place] of Comment: Medicine and an Endocrine Society practice guideline as a Comment: level of serum 25-OH vitamin D less than 20 ng/mL (1,2). Comment: The Endocrine Society went on to further define vitamin D Comment: insufficiency as a level between 21 and 29 ng/mL (2). Comment: 1. IOM ([place]ter of Medicine). 2010. Dietary reference Comment: intakes for calcium and D. Eng DC: The Comment: National AcademEZprints.com Press. Comment: 2. Shanon MF, Bryan [place], Ger [place], et al. Comment: Evaluation, treatment, and prevention of vitamin D Comment: deficiency: an Endocrine Society clinical practice Comment: guideline. JCEM. 2010; 96(7):1911-30. Serum thyroperoxidase antibody assay (03-22-2017 10:43) Serum = 12 0-34 complet thyrope 017 IU/mL ed roxidas 10:43 e antibod y assay Comment: Performed at: [facility] Comment: [address], [place] [id number] Comment: Carpenter Helper: Merlin Castaneda PhD, Phone: [phone] Serum or plasma thyroglobulin antibody a (03-22-2017 10:43) Serum < 1.0 0.0-0.9 complet or 017 IU/mL ed plasma 10:43 thyrogl obulin antibod y a Comment: Thyroglobulin Antibody measured by Giovanna Arely Comment: Methodology Comment: Performed at: [facility] Comment: [address], [place] [id number] Comment: Carpenter Helper: Merlin Castaneda PhD, Phone: [phone] Serum or plasma IgE measurement (units/v (03-22-2017 10:43) Serum = 1223 0-100 complet or 017 IU/mL ed plasma 10:43 IgE measure ment (units/ v Comment: Performed at: [facility] Comment: [address], [place] [id number] Comment: Carpenter Helper: Merlin Castaneda PhD, Phone: [phone] Antinuclear Antibodies, IFA (03-22-2017 10:43) Serum = . complet nuclear 017 Negativ ed 10:43 e antibod y titer by immunof l Comment: Negative <1:80 Comment: Borderline 1:80 Comment: Positive >1:80 Comment: Performed at: [facility] Comment: [address], [place] [id number] Comment: Carpenter Helper: Merlin Castaneda PhD, Phone: [phone] CBC w auto diff (03-22-2017 10:43) Blood = 242 142-424 complet platele 017 K/mm3 ed t count 10:43 Automat = 9.6 7.4-10. complet ed 017 fl 4 ed blood 10:43 platele t mean volume patti [place] % = 5.1 % 1.7-9.3 complet 017 [...] Procedure DOS Code Location Performer Comment PERCUTANE 56306 ALLERGY BAE OUS TESTS 7 [facility] W/[facility] KEN[facility]ICK EXTRACTS INTRACUTA 35102 ALLERGY BAE NEOUS 7 [facility] W/ALLERGE CO KEN[place]ICK EXTRACTS ALBUTEROL J7613 YOUR YOUR INHAL 7 PHARMACY PHARMACY NON-CP [facility] PROD THRU DME U DOSE 1 MG PHRM Q0513 YOUR YOUR DISPENSIN 7 PHARMACY PHARMACY [facility] INHALATIO N RX; PER 30 DAYS ADMN SET A7003 YOUR YOUR SM VOL 7 PHARMACY PHARMACY [facility] PNEUMAT NEBULIZR DISPBL RADIOLOGI 89620 [place] [facility] 7 MEDICAL CHEST 2 IMAGING VIEWS ASS FRONTAL&L ATERAL PHRM Q0513 YOUR YOUR DISPENSIN 7 PHARMACY PHARMACY [facility] INHALATIO N RX; PER 30 DAYS ADMN SET A7003 YOUR YOUR SM VOL 7 PHARMACY PHARMACY [facility] PNEUMAT NEBULIZR DISPBL ALBUTEROL J7613 YOUR YOUR INHAL 7 PHARMACY PHARMACY NON-[facility] PROD THRU DME U DOSE 1 MG THERAPEUT 25376 [facility] GOMEZ IC 7 [facility] PROPHYLAC INC INC TIC/DX INJECTION SUBQ/IM THER 07214 J[facility]ON GOMEZ PROPH/DX 7 [facility] NJX IV INC INC PUSH SINGLE/1S T SBST/DRUG PRESSURIZ 78939 J[facility]ON GOMEZ ED/NONPRE 7 [facility] SSURIZED INC INC INHALATIO N TREATMENT THERAPEUT 94322 J[facility] GOMEZ IC 7 [facility] INJECTION INC INC IV PUSH EACH NEW DRUG ALBUTEROL J7613 YOUR YOUR INHAL [address] [facility] PROD THRU DME U DOSE 1 MG ADMN SET A7003 YOUR YOUR SM VOL 7 PHARMACY PHARMACY [facility] PNEUMAT NEBULIZR DISPBL PHRM Q0513 YOUR YOUR DISPENSIN 7 [facility] IN[facility] N RX; PER 30 DAYS TUBING [...] YOUR YOUR SM VOL 7 PHARMACY PHARMACY [facility] PNEUMAT NEBULIZR DISPBL ALBUTEROL J7613 YOUR YOUR INHAL 7 PHARMACY PHARMACY NON-CP [facility] PROD THRU DME U DOSE 1 MG RADIOLOGI 21721 [facility] EXAM 7 MEDICAL CHEST 2 IMAGING VIEWS ASS FRONTAL&L ATERAL IAADI 72976 [facility] G[facility]Z INFFLUENZ 7 MEM H[facility] A A VIRUS INC INC IAADI 00473 [facility] G[facility] INFLUENZA 7 [facility] B VIRUS INC INC BLOOD 97589 J[facility] GOMEZ COUNT 7 [facility] COMPLETE INC INC AUTO&AUTO DIFRNTL WBC COMPREHEN 10122 [facility] G[facility]Z SIVE 7 [facility] METABOLIC INC INC PANEL RADIOLOGI 45783 [facility] EXAM 7 MEDICAL CHEST 2 IMAGING VIEWS ASS FRONTAL&L ATERAL CULTURE 16262 JSAON GOMEZ BACTERIAL 7 [facility] BLOOD INC INC AEROBIC W/[place] [address] J[facility]ON GOMEZ LACTATE 7 [facility] INC INC PRESSURIZ 73568 JASON GOMEZ ED/NONPRE 7 [facility] SSURIZED INC INC INHALATIO N TREATMENT ECG 83415 JASON SABA JR ROUTINE 7 [facility] W/LEAST P 12 LDS I&R ONLY THER 97446 JASON GOMEZ PROPH/DX 7 [facility] NJX IV INC INC PUSH SINGLE/1S T SBST/DRUG ECG 09737 JASON GOMEZ ROUTINE 7 [facility] ECG INC INC W/LEAST 12 LDS [...] YOUR SM VOL 6 PHARMACY PHARMACY NONFIL Omada [facility] PNEUMAT NEBULIZR DISPBL ALBUTEROL J7613 YOUR YOUR INHAL 6 PHARMACY PHARMACY Yulex [facility] PROD THRU DME U DOSE 1 MG [...] YOUR YOUR SM VOL 6 PHARMACY PHARMACY [facility] PNEUMAT NEBULIZR DISPBL HEADGEAR A7035 JOHNATHAN MANN USED 6 HOME HOME W/POSITIV MEDICAL MEDICAL E AIRWAY EQUIPME EQUIPME PRESSURE DEVICE ALBUTEROL J7613 YOUR YOUR INHAL 6 PHARMACY PHARMACY Yulex [facility] PROD THRU DME U DOSE 1 MG ALBUTEROL J7613 YOUR YOUR INHAL 6 PHARMACY PHARMACY Yulex [facility] PROD THRU DME U DOSE 1 MG ADMN SET A7003 YOUR YOUR SM VOL 6 PHARMACY PHARMACY [facility] PNEUMAT NEBULIZR DISPBL NEBULIZER E0570 JOHN[facility]AN MANN WITH 6 HOME HOME COMPRESSO MEDICAL MEDICAL R EQUIPME EQUIPME THERAPEUT 71009 [facility] GOMEZ IC 6 [facility] INJECTION INC INC IV PUSH EACH NEW DRUG PRESSURIZ 38418 JASON GOMEZ ED/NONPRE 6 [facility] SSURIZED INC INC INHALATIO N TREATMENT CREATINE 52777 JASON GOMEZ KINASE MB 6 [facility] [place] [address] JASON GOMEZ AMYLASE 6 [place] [address] VERONIKA COLLINS ABDOMEN & 6 MEDICAL OLIVIA PELVIS IMAGING W/O ASS CONTRAST MATERIAL CREATINE 34331 JASON GOMEZ KINASE 6 [facility] [place] [address] JASON GOMEZ LIPASE 6 [facility] INC INC RADIOLOGI 34834 [place] KARINA C 6 MEDICAL OLIVIA EXAMINATI IMAGING ON CHEST ASS SINGLE VIEW FRONTAL THER 66814 JASON GOMEZ PROPH/DX 6 [facility] NJX IV INC INC PUSH SINGLE/1S T SBST/[place] [address] JASON GOMEZ TROPONIN 6 [facility] H[facility] QUANTITAT INC INC KHUSHBU BLOOD 35142 JASON GOMEZ COUNT 6 [facility] COMPLETE INC INC AUTO&AUTO DIFRNTL WBC RADIOLOGI 04026 JASON VUONGON C EXAM 6 [facility] H[facility] CHEST 2 INC INC VIEWS FRONTAL&L ATERAL COMPREHEN 12839 JASON GOMEZ SIVE 6 [facility] H[facility] METABOLIC INC INC PANEL NEBULIZER E0570 [...] J7613 YOUR YOUR INHAL 6 PHARMACY PHARMACY NON-Hydrophi [facility] PROD THRU DME U DOSE 1 MG ADMN SET A7003 YOUR YOUR SM VOL 6 PHARMACY [facility] PNEUMAT NEBUL[facility] DISPBL PHRM Q0513 YOUR YOUR DISPENSIN 6 PHARMACY PHARMACY G HEROZ [facility] INHALATIO N RX; PER 30 DAYS NEBULIZER E0570 JOHN[facility]AN MANN WITH 6 HOME HOME COMPRESSO MEDICAL MEDICAL R EQUIPME EQUIPME ADMN SET A7003 YOUR YOUR SM VOL 6 PHARMACY [facility] PNEUMAT NEBULIZR DISPBL PHRM Q0513 YOUR YOUR DISPENSIN 6 PHARMACY PHARMACY [facility] INHALATIO N RX; PER 30 DAYS ALBUTEROL J7613 YOUR YOUR INHAL 6 PHARMACY PHARMACY NON-Hydrophi [facility] PROD THRU DME U DOSE 1 MG [...] COMPRESSO MEDICAL MEDICAL R EQUIPME EQUIPME RADIOLOGI 91129 [facility] C EXAM 5 MEDICAL REUBEN KNEE IMAGING COMPLETE ASS 4/MORE VIEWS WALKING L4360 PROGRESSI PROGRESSI BOOT 5 VE VE PNEUMATC PODIATRY PODIATRY &/ VACUUM PREFAB CUSTM FIT RADEX 48636 [facility] FOOT 5 MEDICAL REUBEN COMPLETE IMAGING MINIMUM 3 [place] [address] JASON GOMEZ BLOOD/URI 5 [facility] C ACID INC INC BLOOD 13344 JASON GOMEZ COUNT 5 [facility] COMPLETE INC INC AUTO&AUTO DIFRNTL WBC SEDIMENTA 99260 JASON GOMEZ TIELVER RATE [address] [facility] RBC INC INC NON-AUTOM ATED COMPREHEN 16095 JASON GOMEZ SIVE 5 MEM HOSP MEM [...] YOUR YOUR DISPENSIN 5 PHARMACY PHARMACY G [employer] [facility] INHALATIO N RX; PER 30 DAYS ADMN SET A7003 YOUR YOUR SM VOL 5 PHARMACY [facility] PNEUMAT NEBULIZR DISPBL ALBUTEROL J7613 YOUR YOUR INHAL 5 PHARMACY PHARMACY NON-[facility] PROD THRU DME U DOSE 1 MG [...] YOUR DISPENSIN 5 PHARMACY PHARMACY G FEE [facility] INHALATIO N RX; PER 30 DAYS ADMN SET A7003 YOUR YOUR SM VOL 5 PHARMACY PHARMACY [facility] PNEUMAT NEBULIZR DISPBL ALBUTEROL J7613 YOUR YOUR INHAL [address] [facility] PROD THRU DME U DOSE 1 MG CREATINE 18048 JASON GOMEZ KINASE 5 [facility] TOTAL INC INC CREATINE 53678 JASON GOMEZ KINASE MB 5 [facility] FRACTION INC INC ONLY THERAPEUT 99267 JASON GOMEZ IC 5 [facility] INJECTION INC INC IV PUSH EACH NEW DRUG PRESSURIZ 64943 JASON GOMEZ ED/NONPRE 5 [facility] SSURIZED INC INC INHALATIO N TREATMENT THER 24780 JASON GOMEZ PROPH/DX 5 [facility] NJX IV INC INC PUSH SINGLE/1S T SBST/[place] [address] JASON GOMEZ TROPONIN 5 [facility] QUANTITAT INC INC KHUSHBU RADIOLOGI 47151 [place] KARINA C EXAM 5 MEDICAL OLIVIA CHEST 2 IMAGING VIEWS ASS FRONTAL&L ATERAL BLOOD 20649 J[facility]ON GOMEZ COUNT 5 [facility] COMPLETE INC INC AUTO&AUTO DIFRNTL WBC COMPREHEN 53742 J[facility]ON GOMEZ SIVE 5 [facility] METABOLIC INC INC PANEL ADMN SET A7003 YOUR YOUR SM VOL 5 PHARMACY PHARMACY [facility] LLC PNEUMAT NEBULIZR DISPBL PHARM G0333 YOUR YOUR DISPEN 5 PHARMACY PHARMACY [facility] RX; INITIAL 30-DAY SUPPLY ALBUTEROL J7613 YOUR YOUR INHAL 5 PHARMACY PHARMACY NON-CP LLC LLC PROD THRU DME U DOSE 1 MG RADIOLOGI 97559 [facility] ALL C EXAM 5 MEDICAL CHEST 2 IMAGING VIEWS ASS FRONTAL&[place] [address] [place] SALDIVAR ALL ABDOMEN & 5 MEDICAL PELVIS [...] EQUIPME W/POS ARWAY PRSS DEVC R RADIOLOGI 80955 [facility] C EXAM 4 MEDICAL REUBEN CHEST [...] W/POS EQUIPME EQUIPME ARWAY PRESSURE DEVICE ECG 22393 TITO SWANSON ROUTINE 4 LEVAR LEVAR ECG W/LEAST 12 LDS I&R ONLY RADIOLOGI 35740 [facility] C EXAM 4 MEDICAL OLIVIA CHEST 2 IMAGING VIEWS ASS FRONTAL&L ATERAL RADIOLOGI 28128 [place] KARINA C EXAM 4 MEDICAL OLIVIA CHEST 2 IMAGING VIEWS ASS FRONTAL&L ATERAL ECG 40134 JASON ALONSO ROUTINE 4 [place] W/LEAST P 12 LDS I&R ONLY FILTER [...] MEDICAL AIRWAY EQUIPME EQUIPME PRESSURE DEVICE RADIOLOGI 07626 [facility] C EXAM 3 MEDICAL OLIVIA CHEST 2 IMAGING VIEWS ASS FRONTAL&L ATERAL RADIOLOGI 15594 JASON GOMEZ C EXAM 3 [facility] CHEST 2 INC INC VIEWS FRONTAL&L ATERAL IAADI 14862 JASON GOMEZ INFLUENZA 3 [facility] B VIRUS INC INC IAADI 22757 J[facility]ON GOMEZ INFFLUENZ 3 [facility] A A VIRUS INC INC BLOOD 20081 JASON GOMEZ COUNT 3 [facility] COMPLETE INC INC AUTO&[place] [address] JASON GOMEZ TROPONIN 3 [facility] QUANTITAT INC INC KHUSHBU BASIC 85796 JASON GOMEZ METABOLIC 3 [facility] PANEL INC INC CALCIUM TOTAL ECG 21208 JASON GUPTA ROUTINE 3 [place] W/LEAST P 12 LDS I&R ONLY PRESSURIZ 33614 JASON GOMEZ ED/NONPRE 3 [facility] SSURIZED INC INC INHALATIO N TREATMENT CREATINE 50884 JASON GOMEZ KINASE MB 3 [facility] FRACTION INC INC ONLY CREATINE 51700 JASON GOMEZ KINASE 3 [facility] TOTAL INC INC ECG 19498 JASON GOMEZ ROUTINE 3 [facility] ECG INC INC W/LEAST 12 LDS TRCG ONLY W/O I&R THER 73453 JASON GOMEZ PROPH/DX [address] [facility] NJX IV INC INC PUSH SINGLE/1S [...] M BASED MR CONTRAST NOS [place] MRI 43468 AVERION-M AVERION-M SPINAL 2 AHLOCH AHLOCH CANAL DOMENICA DOMENICA CERVICAL W/O & W/CONTR MATRL THERAPEUT 06430 J[facility]ON GOMEZ IC 2 [facility] PROPHYLAC INC INC TIC/DX INJECTION SUBQ/[place] [address] JASON GOMEZ STREPTOCO 2 [facility] CCUS INC INC GROUP A IAADI 29508 JASON GOMEZ INFLUENZA 2 [facility] B VIRUS INC INC IAADI 91594 JASON GOMEZ INFFLUENZ 2 MEM HOS[facility] MEM [...] EQUIPME EQUIPME ARWAY PRESS DEVICE EA COMPREHEN 52490 JASON GOMEZ SIVE 2 [facility] METABOLIC INC INC PANEL CULTURE 95400 JASON GOMEZ BACTERIAL [address] [facility] BLOOD INC INC AEROBIC W/ID ISOLATES NATRIURET 97247 JASON GOMEZ IC 2 [facility] PEPTIDE INC INC BLOOD 63611 JASON GOMEZ COUNT 2 [facility] COMPLETE INC INC AUTO&[place] [address] JASON GOMEZ TROPONIN 2 [facility] QUANTITAT INC INC KHUSHBU RADIOLOGI 78576 KARINA KARINA C 2 OLIVIA OLIVIA EXAMINATI ON CHEST SINGLE VIEW FRONTAL ECG 12524 JASON GOMEZ ROUTINE 2 [facility] ECG INC INC W/LEAST 12 LDS TRCG ONLY W/O I&R THERAPEUT 60011 JASON GOMEZ IC 2 [facility] INJECTION INC [place] [address] JASON GOMEZ INFUSION 2 [facility] THERAPY/P INC INC ROPHYLAXI S /DX 1ST TO 1 HR PRESSURIZ [id number] JASON GOMEZ ED/NONPRE 2 [facility] SSURIZED INC INC INHALATIO N TREATMENT RHYTHM 40987 JASON GOMEZ ECG 1-[address] [facility] LEADS INC INC TRACING ONLY W/O I&R CREATINE 09714 JASON GOMEZ KINASE MB 2 [facility] FRACTION INC INC ONLY CREATINE 14155 JASON GOMEZ KINASE 2 [facility] TOTAL INC INC MRI 39153 AVERION-M AVERION-M SPINAL 2 AHLOCH AHLOCH CANAL DOMENICA DOMENICA CERVICAL W/O & W/CONTR MATRL MRI BRAIN 36452 AVERION-M AVERION-M BRAIN 2 AHLOCH AHLOCH STEM W/O DOMENICA DOMENICA W/CONTRAS T MATERIAL INJECTION A9579 AVERION-M AVERION-M 2 AHLOCH AHLOCH GADOLINIU DOMENICA DOMENICA M BASED MR CONTRAST NOS ML MRI 54481 LUTZ TRA LUTZ TRA SPINAL 2 CANAL THORACIC W/CONTRAS T MATRL MRI 69232 [place] SPINAL 2 ROL ROL CANAL THORACIC W/O CONTRAST MATRL RADEX 07802 JASON GOMEZ SPINE 2 [facility] THORACIC INC INC 3 VIEWS ALBUTEROL [...] E AIRWAY EQUIPME EQUIPME PRESSURE DEVICE BLOOD 30239 JASON GOMEZ COUNT 1 [facility] COMPLETE INC INC AUTO&[place] [address] JASON [facility]OMEZ TROPONIN 1 [facility] QUANTITAT INC INC KHUSHBU RADIOLOGI 73288 JASON GOMEZ C EXAM [address] [facility] CHEST 2 INC INC VIEWS FRONTAL&L ATERAL BASIC 64958 JASON GOMEZ METABOLIC [address] [facility] PANEL INC INC CALCIUM TOTAL CREATINE 83808 JASON JASON KINASE 1 [facility] TOTAL INC INC CREATINE 37405 JASON JASON KINASE MB 1 [facility] [place] [address] JASON GOMEZ INFUSION 1 [facility] THERAPY/P INC INC ROPHYLAXI S /DX 1ST TO 1 HR THERAPEUT 67232 JASON JASON IC 1 [facility] INJECTION INC INC IV PUSH [facility] NEW DRUG RHYTHM 71099 JASON GOMEZ ECG 1-3 1 [facility] LEADS INC INC TRACING ONLY W/O I&R ECG 92515 MCKEMIE MCKEMIE ROUTINE 1 JR MONICA JR MONICA ECG W/LEAST 12 LDS I&R ONLY PRESSURIZ 98938 JASON GOMEZ ED/NONPRE 1 [facility] SSURIZED INC INC INHALATIO N TREATMENT ECG 50219 JASON GOMEZ ROUTINE 1 [facility] ECG INC INC W/LEAST 12 LDS TRCG ONLY W/O I&R CONTINUOU E0601 [facility] S 1 E O2 E O2 POSITIVE AIRWAY PRESSURE DEVICE HUMDIFIR E0562 [facility] HEATED 1 E O2 E O2 USED W/POS ARWAY PRESSURE DEVICE BASIC 32605 JASON GOMEZ METABOLIC 1 [facility] PANEL INC INC CALCIUM TOTAL RADIOLOGI 31810 KARINA COLLINS C EXAM 1 OLIVIA OLIVIA CHEST 2 VIEWS FRONTAL&[place] [address] JASON GOMEZ TROPONIN 1 [facility] QUANTITAT INC INC KHUSHBU BLOOD 80448 JASON GOMEZ COUNT 1 [facility] COMPLETE INC INC AUTO&AUTO DIFRNTL WBC ECG 52467 JASON GOMEZ ROUTINE 1 [facility] ECG INC INC W/LEAST 12 LDS TRCG ONLY W/O I&R THER 91204 JASON GOMEZ PROPH/DX 1 [facility] NJX IV INC INC PUSH SINGLE/1S T SBST/DRUG PRESSURIZ 79090 JASON GOMEZ ED/NONPRE 1 [facility] SSURIZED INC INC INHALATIO N TREATMENT CREATINE 53104 JASON GOMEZ KINASE MB 1 [facility] FRACTION INC INC ONLY CREATINE 18966 JASON GOMEZ KINASE 1 [facility] TOTAL INC INC CONTINUOU E0601 [facility] S 1 E O2 E O2 POSITIVE AIRWAY PRESSURE DEVICE HUMDIFIR E0562 [facility] HEATED 1 E O2 E O2 USED W/POS ARWAY PRESSURE DEVICE HUMDIFIR E0562 [facility] HEATED 1 E O2 E O2 USED W/POS ARWAY PRESSURE DEVICE CONTINUOU E0601 [facility] S 1 E O2 E O2 POSITIVE AIRWAY PRESSURE DEVICE CONTINUOU E0601 [facility] 1 E O2 E O2 POSITIVE AIRWAY PRESSURE DEVICE HUMDIFIR E0562 [facility] HEATED 1 E O2 E O2 USED W/POS ARWAY PRESSURE DEVICE HUMDIFIR E0562 [facility] HEATED 1 E O2 E O2 USED W/POS ARWAY PRESSURE DEVICE CONTINUOU E0601 [facility] S 1 E O2 E O2 POSITIVE AIRWAY PRESSURE DEVICE CONTINUOU E0601 [facility] 1 E O2 E O2 POSITIVE AIRWAY PRESSURE DEVICE HUMDIFIR E0562 [facility] HEATED 1 E O2 E O2 USED W/POS ARWAY PRESSURE DEVICE WATR A7046 [facility] 1 E O2 E O2 HUMDIFIR USED W/POS ARWAY PRSS DEVC R CONTINUOU E0601 [facility] S 1 E O2 E O2 POSITIVE AIRWAY PRESSURE DEVICE HUMDIFIR E0562 [facility] HEATED 1 E O2 E O2 USED W/POS ARWAY PRESSURE DEVICE ECG 36647 ALONSO GUPTA ROUTINE 1 SUSHMA SUSHMA ECG W/LEAST 12 LDS I&R ONLY HUMDIFIR E0562 [facility] HEATED 1 E O2 E O2 USED W/POS ARWAY PRESSURE DEVICE CONTINUOU E0601 [facility] S 1 E O2 E O2 POSITIVE AIRWAY PRESSURE DEVICE CONTINUOU E0601 [facility] S 0 E O2 E O2 POSITIVE AIRWAY PRESSURE DEVICE HUMDIFIR E0562 [facility] HEATED 0 E O2 E O2 USED W/POS ARWAY PRESSURE DEVICE HUMDIFIR E0562 [facility] HEATED 0 E O2 E O2 USED W/POS ARWAY PRESSURE DEVICE CONTINU E0601 [facility] S 0 E O2 E O2 POSITIVE AIRWAY PRESSURE DEVICE CONTINUOU E0601 [facility] S 0 E O2 E O2 POSITIVE AIRWAY PRESSURE DEVICE HUMDIFIR E0562 [facility] HEATED 0 E O2 E O2 USED W/POS ARWAY PRESSURE DEVICE HUMDIFIR E0562 [facility] HEATED 0 E O2 E O2 USED W/POS ARWAY PRESSURE DEVICE CONTINU E0601 [facility] S 0 E O2 E O2 POSITIVE AIRWAY PRESSURE DEVICE POLYSOM [address] [facility] 6/>YRS 0 Y OF Y OF SLEEP [facility] W/CPAP E HOS E HOS 4/> ADDL DILCIA ATTND RADIOLOGI [address] [facility] C EXAM 0 Y OF Y OF CHEST 2 [facility] VIEWS E HOS E HOS FRONTAL&L ATERAL RADIOLOGI 19420 JULITO VILA C EXAM 0 TL L TL L CHEST 2 VIEWS FRONTAL&L ATERAL RADIOLOGI 43096 [facility] C 0 IVANA G IVANA G EXAMINATI ON CHEST SINGLE VIEW FRONTAL THER [address] [facility] PROPH/DX 0 Y OF Y OF NJX IV [facility] PUSH E E SINGLE/1S HOSPITAL HOSPITAL T SBST/DRUG DETER 17543 DERICK CAMPBELL RESIST TO 0 AIRFLO OSCILLATO RY/PLETHY SMOGRAP THRC GAS 61960 DERICK CAMPBELL VOL 0 CARBON 72631 DERICK CAMPBELL MONOXIDE 0 DIFFW/CAP PULMONARY 87932 DERICK SHANNAN DERICK SHANNAN STRESS 0 TESTING SIMPLE CV STRS 70989 RYLAN FAGAN, TST 0 MARY Sanchez XERS&/OR RX CONT ECG I&R ONLY MYOCARDIA 21628 RYLAN FAGAN, L SPECT 0 MARY Sanchez MULTIPLE STUDIES RADIOLOGI 54438 VYLETA, VYLETA, C EXAM 0 XIOMARA SOLANO S CHEST 2 VIEWS FRONTAL&L ATERAL RADIOLOGI 62171 U OF L U OF L C EXAM 9 (P1017) (P1017) CHEST 2 UNIV UNIV VIEWS RADIOL RADIOL FRONTAL&L ASSOC ASSOC ATERAL RADIOLOGI 31896 U OF L U OF L C EXAM 9 (P1017) (P1017) CHEST 2 UNIV UNIV VIEWS RADIOL RADIOL FRONTAL&L ASSOC ASSOC ATERAL RADEX 99757 U OF L U OF L ANKLE 9 (P1017) (P1017) COMPLETE UNIV UNIV MINIMUM 3 RADIOL RADIOL VIEWS ASSOC ASSOC HUMDIFIR E0562 [facility] HEATED 9 E 02 E 02 USED W/POS ARWAY PRESSURE DEVICE RESP ASST E0470 [facility] DEV 9 E 02 E 02 BI-LEVL PRSS CAPABILIT Y W/O BACKU RADIOLOGI 76548 U OF L U OF L C EXAM 9 (P1017) (P1017) CHEST 2 UNIV UNIV VIEWS RADIOL RADIOL FRONTAL&L ASSOC ASSOC ATERAL RESP ASST E0470 [facility] DEV 9 E 02 E 02 BI-LEVL PRSS CAPABILIT Y W/O BACKU HUMDIFIR E0562 [facility] HEATED 9 E 02 E 02 USED W/POS ARWAY PRESSURE DEVICE HUMDIFIR E0562 [facility] HEATED 8 E 02 E 02 USED W/POS ARWAY PRESSURE DEVICE RESP ASST E0470 [facility] DEVC 8 E 02 E 02 BI-LEVL PRSS CAPABILIT Y W/O BACKU NEBULIZER E0570 YAQUELIN JAMISON, WITH 8 INC INC COMPRESSO R O2 CONC 1 E1390 [facility] 8 INC INC 85%/>02 CONC AT PRSC FLW RATE POLYSOM 47844 [facility] 6/>YRS 8 Y OF Y OF SLEEP [facility] PEACE W/CPAP E E 4/> [facility] DILCIA ATTND INITIAL 74410 [facility] 8 JR, SONY JR, SONY CARE/DAY R R 70 MINUTES RADIOLOGI 47234 U OF L U OF L C EXAM 8 (P1017) (P1017) CHEST 2 [facility] UNIV VIEWS RADIOL RADIOL FRONTAL&L ASSOC ASSOC ATERAL O2 CONC 1 E1390 [facility] [place] [facility] 8 INC INC 85%/>02 CONC AT PRSC FLW RATE NEBULIZER E0570 [facility], WITH 8 INC INC COMPRESSO R O2 CONC 1 E1390 [facility] 8 INC INC 85%/>02 CONC AT PRSC FLW RATE NEBULIZER E0570 [facility], WITH 8 INC INC COMPRESSO R O2 CONC 1 E1390 [facility] 8 INC INC 85%/>02 CONC AT PRSC FLW RATE NEBULIZER E0570 [facility], WITH 8 INC INC COMPRESSO R O2 CONC 1 E1390 [facility] [place] 8 INC INC 85%/>02 CONC AT PRSC FLW RATE POLYSOM 76722 [facility] 6/>YRS 8 U, FINN U, FINN SLEEP 4/> ADD DILCIA ATTND NEBULIZER E0570 [facility], WITH 8 INC INC COMPRESSO R O2 CONC 1 E1390 [facility] [place] 8 INC INC 85%/>02 CONC AT PRSC FLW RATE NEBULIZER E0570 [facility], WITH 8 INC INC COMPRESSO R NEBULIZER E0570 [facility], WITH 8 INC INC COMPRESSO R NEBULIZER E0570 [facility], WITH 8 INC INC COMPRESSO R ADMN SET A7005 YAQUELIN JAMISON, W/SM VOL 8 INC INC NONFILTR NEBULIZR NON-DISPB L RADIOLOGI 95243 [facility] C EXAM 8 IVANA G IVANA G CHEST 2 VIEWS FRONTAL&L ATERAL IRRIGATIO 96.52 M. Danis Swanson MD Encounters Encounter Start End Date Code Location Performer Type Date OFFICE 72175 ALLERGY BAE OUTPATIEN 7 7 PARTNERS T VISIT OF [facility] 40 CO MINUTES EMERGENCY 47172 JASON 7 7 [facility] DEPARTMEN [facility] T VISIT LOW/MODER SEVERITY HOSPITAL JASON - 7 7 [facility] OUTPATIEN [facility] T EMERGENCY 84875 ALEXANDRE SWANSON 7 7 PHYSICIAN DEPARTMEN S, [facility] T VISIT HIGH/URGE NT SEVERITY HOSPITAL JASON - 7 7 [facility] OUTPATIEN INC T EMERGENCY 50260 JASON 7 7 [facility] DEPARTMEN INC T VISIT MODERATE SEVERITY OFFICE 08469 [facility] RADHA LANDAVERDE T VISIT PSC 15 MINUTES EMERGENCY 08213 JASON 7 7 [facility] DEPARTMEN INC T VISIT HIGH/URGE NT SEVERITY HOSPITAL JASON - 7 7 [facility] OUTPATIEN INC T HOSPITAL JASON - 6 6 [facility] OUTPATIEN [facility] T EMERGENCY 83379 JASON 6 6 [facility] DEPARTMEN [facility] T VISIT HIGH/URGE NT SEVERITY HOSPITAL JASON - 5 5 [facility] OUTPATIEN [facility] T EMERGENCY 21364 JASON 5 5 [facility] DEPARTMEN INC T VISIT LOW/MODER SEVERITY HOSPITAL JASON - [address] [facility] OUTPATIEN [facility] T HOSPITAL JASON - 5 5 [facility] OUTPATIEN INC T EMERGENCY 43138 JASON 5 5 [facility] DEPARTMEN INC T VISIT MODERATE SEVERITY Emergency JESSICA Swanson MD (ER) 3 06:43 3 07:24 [facility] EMERGENCY 98511 LAWANDA SWANSON [address] [facility] DEPARTMEN SERVICES T VISIT MODERATE SEVERITY Emergency JESSICA Mendoza (ER) 3 18:20 3 20:16 [facility] Emergency JESSICA Self (ER) 3 10:22 3 11:22 [facility] EMERGENCY 06074 LAWANDA SELF DEPT 3 3 EMERGENCY III MONICA VISIT SERVICES HIGH SEVERITY& THREAT [facility] JASON - 3 3 [facility] OUTPATIEN INC T EMERGENCY 28157 JASON 3 3 [facility] DEPARTMEN INC T VISIT MODERATE SEVERITY HOSPITAL JASON - 2 2 [facility] OUTPATIEN INC T EMERGENCY 98621 MONSE SELF 2 2 III MONICA III MONICA DEPARTMEN T VISIT HIGH/URGE NT SEVERITY EMERGENCY 01065 JASON 2 2 [facility] DEPARTMEN INC T VISIT MODERATE SEVERITY HOSPITAL JASON - 2 2 [facility] OUTPATIEN INC T EMERGENCY 15151 JASON 2 2 [facility] DEPARTMEN INC T VISIT HIGH/URGE NT SEVERITY OFFICE 97652 BOB ESCALANTE OUTPATIEN 2 2 T VISIT 10 MINUTES OFFICE 28371 FREDERICK MACK OUTPATIEN 2 2 WENDY NGUYEN T NEW 45 MINUTES HOSPITAL JASON - 2 2 [facility] OUTPATIEN INC T EMERGENCY 27813 JASON 1 1 [facility] DEPARTMEN INC T VISIT HIGH/URGE NT SEVERITY HOSPITAL JASON - 1 1 [facility]EN [facility] JASON - 1 1 [facility] EMER[facility] 10786 JASON 1 1 [facility] VISIT HIGH/URGE NT SEVERITY HOSPITAL UNIVERSIT - [address] [facility] UNIVERSIT - [address] [facility] 78138 Royal LUNA D 0 0 [facility] T VISIT HIGH/URGE NT SEVERITY OFFICE 16679 TIERRA MAYORGA OUTPATIEN 9 9 , SONY JR, SONY T VISIT R R 15 MINUTES EMERGENCY 09139 EVGENY PARKEREN 9 9 MD REUBEN ALEXIS MD [facility] T VISIT HIGH/URGE NT SEVERITY HOSPITAL [facility] 44749 SANDI JUNIOR, 9 9 LIYA Guerra [facility] T VISIT MODERATE SEVERITY EMERGENCY 42497 UNIVERSIT 9 9 Y OF [facility] VISIT E LOW/MODER HOSPITAL SEVERITY EMERGENCY 86912 JARON SALMERON, 9 9 S J S J [facility] T VISIT HIGH/URGE NT SEVERITY OFFICE 56702 [facility] OUTPATIEN 9 9 U, FINN U, FINN T NEW 30 MINUTES HOSPITAL [facility] 8 8 [facility]
--- OUTSIDE RECORDS SUMMARY | 2017-04-09 16:58 | External Medical Summary Rpt | CCD ---
Author Author , SAMIR Marques SAMIR Address Unknown Phone [email or web address] Care Team Providers Care Lead Systems Engineer Name Role Phone A Jose GARCIA MD PSC, Vonda Unavailable Unavailable Jose GARCIA MD PSC ALLERGY [...] LEVAR TITO LEVAR, TITO Unavailable Unavailable LEVAR [facility] Unavailable Unavailable INC, [facility] Unavailable Unavailable HOSPITAL P, [facility] Unavailable Unavailable IMAGING ASS, [facility] IVANA VALDIVIA KING, Unavailable Unavailable WANDY MARSH JR, JR Unavailable Unavailable [facility], Unavailable Unavailable [facility], Unavailable Unavailable [facility], Unavailable Unavailable [facility], [facility] Unavailable Unavailable [facility], [facility] Unavailable Unavailable [facility] Unavailable Unavailable SERVICES, [facility] MCKEMIE JR MONICA, Unavailable Unavailable MCKEMIE JR MONICA MOLDOVEANU BOG, Unavailable Unavailable MOLDOVEANU BOG DERRICKANU, FINN, Unavailable Unavailable MOLDOVEANU, FINN YVETTE CRAWFORD Unavailable Unavailable EVGENY ALEXIS MD, Unavailable Unavailable MD [facility], Unavailable Unavailable PLL[facility], [facility] Unavailable Unavailable [facility] Unavailable Unavailable SONY MAYORGA JR, Unavailable Unavailable SONY MAYORGA JR, Unavailable Unavailable FREDERICK NGUYEN, Unavailable Unavailable FREDERICK WENDY [facility], Unavailable Unavailable [facility] [...] [facility]P1017[facility] Unavailable Unavailable [facility] Unavailable Unavailable [facility] Neville SALMERON, Unavailable Unavailable Neville SALMERON MARTIN S, Unavailable Unavailable XIOMARA MERRITT STEPHEN G, Unavailable Unavailable MARY FAGAN WEHRMAN III MONICA, Unavailable Unavailable WEHRMAN III MONICA WEHRMAN III MONICA, Unavailable Unavailable WEHRMAN III MONICA ERIC KNIGHT Unavailable Unavailable BAE, BAE Unavailable Unavailable [facility], Unavailable Unavailable [...] 03-17-2017 [facility] [facility] [id number] UNSPECIFIED 03-10-2017 [facility] UNCOMPLICAT [facility] ED R0602 SHORTNESS 02-27-2017 [facility] I10 ESSENTIAL 01-01-2017 [facility], HYPERTENSIO PLLC N L509 URTICARIA 01-01-2017 [facility] UNSPECIFIED [facility]YSICIANS, PLLC E119 TYPE 2 12-23-2016 [facility] MELLITUS [facility] WITHOUT COMPLICATIO NS X803PQQ ANGIONEUROT 12-23-2016 [facility]RE FOSTER EDEMA [facility], INITIAL [facility] ENCOUNTER Z720 TOBACCO USE 12-23-2016 [facility] G4733 OBSTRUCTIVE 10-30-2016 [facility]ULT [facility]ICAL PEDIATRIC EQUIPME X79443 UNSPECIFIED 07-31-2016 A Jose GARCIA ASTHMA PSC WITH ACUTE EXACERBATIO N J209 ACUTE 07-28-2016 KEATCHIE BRONCHITIS [facility] UNSPECIFIED HOSPITAL P J440 COPD WITH 07-28-2016 KEATCHIE ACUTE [facility] P RESPIRATORY INFECTION R05 COUGH 07-28-2016 [place] [facility] J441 CHRONIC 11-12-2015 [facility]CTIVE [facility] PULMONARY INC DZ W/EXACERBAT ION M545 LOW BACK 11-12-2015 [facility] PAIN [facility] INC R0600 DYSPNEA 11-12-2015 [place] UNSPECIFIED [facility] R1032 LEFT LOWER 11-12-2015 [place] [facility] M03824 PAIN IN 04-30-2015 [place] LEFT KNEE [facility]ICAL IM[facility] E1141 TYPE 2 04-25-2015 PROGRESSIVE DIABETES PODIATRY MELLITUS W/DIAB MONONEUROPA THY S75875 SPONTANEOUS 04-25-2015 PROGRESSIVE RUPTURE PODIATRY FLEXOR TENDONS LT ANKLE FOOT H42448 PAIN IN 04-25-2015 PROGRESSIVE LEFT FOOT PODIATRY B353 TINEA PEDIS 04-23-2015 [facility] 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 7862 COUGH 12-30-2014 [facility] 92059 CHEST PAIN 12-06-2014 [place] UNSPECIFIED [facility] IM[facility]ING [facility] 12899 ABDOMINAL 10-19-2014 [place] PAIN, MEDICAL UNSPECIFIED IMAGING ASS SITE 5180 PULMONARY 04-19-2014 [place] COLL[facility]SE [facility] 31627 PAINFUL 02-21-2014 [facility] RESPIRATION 35105 ASTHMA 10-09-2013 ERIC YOUNGER UNSPECIFIED WITH EXACERBATIO N 44400 WHEEZING 10-09-2013 [place] [facility] V140 PERSONAL 10-09-2013 [facility] HISTORY OF [facility] ALLERGY TO HOSPITAL P PENICILLIN 3804 IMPACTED 06-12-2013 [facility] EMERGENCY SERVICES 53342 OTHER 10-04-2012 [place] NONSPECIFIC MEDICAL ABNORMAL IMAGING ASS FINDING OF LUNG FIELD 25193 OBSTRUCTIVE 09-25-2012 KEATCHIE CHRONIC [facility] BRONCHITIS HOSPITAL P WITH EXACERBATIO N 7231 CERVICALGIA 04-07-2012 [facility] LOCH DOMENICA 7241 PAIN IN 04-07-2012 [facility] THORACIC LOCH DOMENICA SPINE 462 ACUTE 02-25-2012 WEHRMAN III PHARYNGITIS MONICA 4660 ACUTE 01-21-2012 [facility] BRONCHITIS [facility] INC 3360 SYRINGOMYEL 01-07-2012 BOB AVA IA AND SYRINGOBULB IA 7245 UNSPECIFIED 12-31-2011 MACK BACKACHE WENDY 7812 ABNORMALITY 12-31-2011 [facility] OF GAIT LOCH DOMENICA 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 7820 DISTURBANCE 11-26-2011 [place] [facility] OF SKIN SENSATION 30013 OTHER 10-10-2009 Royal [place] [address] HIGH 10-03-2009 DERICK CAMPBELL ALTITUDE PERIODIC BREATHING 29121 EXTRINSIC 10-03-2009 DERICK SHANNAN ASTHMA, UNSPECIFIED V472 OTHER 10-03-2009 DERICK SHANNAN CARDIORESPI RATORY PROBLEMS V0481 NEED 04-23-2009 [facility] PROPHYLACTI JR, SONY Garcia VACCINATION &INOCULATIO N FLU 93402 OTHER 04-15-2009 [facility] DISEASES OF (P1017) LUNG NOT UNIV RADIOL ELSEWHERE ASSOC CLASSIFIED 36018 ACUTE 04-15-2009 EVGENY ALEXIS BRONCHOSPSTEFFEN Guerra 91756 PAIN IN 11-05-2008 [facility] JOINT, (P1017) ANKLE AND UNIV RADIOL FOOT ASSOC 25946 UNSPECIFIED 11-05-2008 SANDI, SITE OF LIYA Guerra ANKLE SPRAIN AND STRAIN E8888 OTHER FALL 11-05-2008 LIYA JUNIOR 1629 MALIGNANT 05-06-2008 [facility], NEOPLASM INC BRONCHUS&EVON NG UNSPEC SITE 78146 OBST 04-27-2008 TI[facility]RA CHRONIC JRSONY R BRONCHITIS W/ACUTE BRONCHITIS 14135 UNSPECIFIED 11-23-2007 [place] [facility] 79204 OTHER 11-23-2007 [facility] MALAISE AND OF FATIGUE [facility] 7840 HEADACHE 11-23-2007 [facility] 7806 FEVER & OTH 08-10-2007 IVANA VALDIVIA PHYSIOLOGIC DISTURBANCE S TEMP REG Medications Na ND Rx Da Fi Fi [...] CA #3 PS 93 UL 8 E Procedures Procedure DOS Code Location Performer Comment PERCUTANE 00185 ALLERGY BAE OUS TESTS 7 [facility] W/ALLERGE CO KENRICK EXTRACTS INTRACUTA 54041 ALLERGY BAE NEOUS 7 [facility] [place] W/ALLERGE CO KENRICK EXTRACTS PHRM Q0513 YOUR YOUR DISPENSIN 7 PHARMACY PHARMACY G FEE [employer] INHALATIO N RX; PER 30 DAYS ADMN SET A7003 YOUR YOUR SM VOL 7 PHARMACY PHARMACY NONFIL[employer] PNEUMAT NEBULIZR DISPBL ALBUTEROL J7613 YOUR YOUR INHAL 7 PHARMACY PHARMACY NON-CP [employer] PROD THRU DME U DOSE 1 MG RADIOLOGI 45280 [facility] C EXAM 7 MEDICAL CHEST 2 IMAGING VIEWS ASS FRONTAL&L ATERAL ALBUTEROL J7613 YOUR YOUR INHAL 7 PHARMACY PHARMACY NON-CP [employer] PROD THRU DME U DOSE 1 MG ADMN SET A7003 YOUR YOUR SM VOL 7 PHARMACY PHARMACY NONFILTR [employer] PNEUMAT NEBULIZR DISPBL PHRM Q0513 YOUR YOUR DISPENSIN 7 PHARMACY PHARMACY [employer] [facility] INHALATIO N RX; PER 30 DAYS THERAPEUT 75582 [facility] IC 7 [facility] PROPHYLAC INC INC TIC/DX INJECTION SUBQ/IM THER 94326 [facility] PROPH/DX 7 [facility] NJX IV INC INC PUSH SINGLE/1S T SBST/DRUG PRESSURIZ 15032 [facility] ED/NONPRE 7 [facility] SSURIZED INC INC INHALATIO N TREATMENT THERAPEUT 75813 [facility] G[facility] IC 7 [facility] INJECTION INC INC IV PUSH EACH NEW DRUG PHRM Q0513 YOUR YOUR DISPENSIN 7 PHARMACY PHARMACY [employer] [facility] INHALATIO N RX; PER 30 DAYS ADMN SET A7003 YOUR YOUR SM VOL 7 PHARMACY PHARMACY [employer] [facility] PNEUMAT NEBULIZR DISPBL ALBUTEROL J7613 YOUR YOUR INHAL 7 PHARMACY PHARMACY NON-DDRdrive PROD THRU DME U DOSE 1 MG TUBING A7037 JOHNATHAN MANN USED WITH 7 HOME HOME POSITIVE MEDICAL MEDICAL AIRWAY EQUIPME EQUIPME PRESSURE DEVICE FULL FACE A7030 JOHNATHAN SINGHRELL MASK 7 HOME HOME USED MEDICAL MEDICAL W/POS EQUIPME EQUIPME ARWAY PRESS DEVICE EA HEADGEAR A7035 JOHNATHAN MANN USED 7 HOME HOME W/POSITIV MEDICAL MEDICAL E AIRWAY EQUIPME EQUIPME PRESSURE DEVICE ADMN SET A7003 YOUR YOUR SM VOL 7 PHARMACY PHARMACY [employer] PNEUMAT NEBULIZR DISPBL ALBUTEROL J7613 YOUR YOUR INHAL 7 PHARMACY PHARMACY Nethub-DDRdrive PROD THRU DME U DOSE 1 MG RADIOLOGI 43481 VERONIKA Garcia EXAM 7 MEDICAL CHEST 2 IMAGING VIEWS ASS FRONTAL&L ATERAL RADIOLOGI 00198 [facility]ON G[facility] C EXAM 7 [facility] CHEST 2 INC INC VIEWS FRONTAL&L ATERAL CULTURE 14800 J[facility]ON G[facility] BACTERIAL 7 [facility] BLOOD INC INC AEROBIC W/ID ISOLATES THER 17840 [facility] PROPH/DX 7 [facility] NJX IV INC INC PUSH SINGLE/1S T SBST/DRUG BLOOD 49124 [facility] COUNT 7 [facility] COMPLETE INC INC AUTO&AUTO DIFRNTL WBC ECG 72854 [facility] ROUTINE 7 [facility] ECG INC INC W/LEAST 12 LDS TRCG ONLY W/O I&R IAADI 02880 [facility] INFLUENZA 7 [facility] B VIRUS INC INC IAADI 71993 [facility] INFFLUENZ 7 [facility] A A VIRUS INC INC PRESSURIZ 16182 [facility] ED/NONPRE 7 [facility] SSURIZED INC INC INHALATIO N TREATMENT COMPREHEN 07078 [facility] SIVE 7 [facility] [address] [facility] LACTATE 7 [facility] INC INC ECG 39129 JASON SABA JR ROUTINE 7 [facility] W/LEAST P 12 LDS I&R ONLY FULL FACE A7030 JOHNATHAN JOHNATHAN MASK 7 HOME HOME USED MEDICAL MEDICAL W/POS EQUIPME EQUIPME ARWAY PRESS DEVICE EA FILTER A7038 JOHNATHAN MANN DISPBL 7 HOME HOME USED MEDICAL MEDICAL W/POS EQUIPME EQUIPME ARWAY PRESSURE DEVICE TUBING A7037 JOHNATHAN MANN USED WITH 7 HOME HOME POSITIVE MEDICAL MEDICAL AIRWAY EQUIPME EQUIPME PRESSURE DEVICE ADMN SET A7003 YOUR YOUR SM VOL 6 PHARMACY PHARMACY NONFIL[employer] LLC PNEUMAT NEBULIZR DISPBL ALBUTEROL J7613 YOUR YOUR INHAL 6 PHARMACY PHARMACY NON-CP [employer] PROD THRU DME U DOSE 1 MG TUBING A7037 JOHNATHAN MANN USED WITH 6 HOME HOME POSITIVE MEDICAL MEDICAL AIRWAY EQUIPME EQUIPME PRESSURE DEVICE WATR A7046 JOHNATHAN MANN CHAMB 6 HOME HOME HUMDIFIR MEDICAL MEDICAL USED EQUIPME EQUIPME W/POS ARWAY PRSS DEVC R ADMN SET A7003 YOUR YOUR SM VOL 6 PHARMACY PHARMACY [employer] PNEUMAT NEBULIZR DISPBL FULL FACE A7030 JOHNATHAN JOHNATHAN MASK 6 HOME HOME USED MEDICAL MEDICAL W/POS EQUIPME EQUIPME ARWAY PRESS DEVICE EA HEADGEAR A7035 JOHNATHAN MANN USED 6 HOME HOME W/POSITIV MEDICAL MEDICAL E AIRWAY EQUIPME EQUIPME PRESSURE DEVICE ALBUTEROL J7613 YOUR YOUR INHAL 6 PHARMACY PHARMACY NON-CP [facility] PROD THRU DME U DOSE 1 MG ALBUTEROL J7613 YOUR YOUR INHAL 6 PHARMACY PHARMACY NON-CP [facility] PROD THRU DME U DOSE 1 MG ADMN SET A7003 YOUR YOUR SM VOL 6 PHARMACY PHARMACY NONFILTR [facility] PNEUMAT NEBULIZR DISPBL NEBULIZER E0570 JOHNATHAN MANN WITH 6 HOME HOME COMPRESSO MEDICAL MEDICAL R EQUIPME EQUIPME RADIOLOGI 29222 [place] KARINA Garcia 6 MEDICAL OLIVIA EXAMINATI IMAGING ON CHEST ASS SINGLE VIEW FRONTAL THERAPEUT 67533 [facility] G[facility] IC 6 [facility] INJECTION INC INC IV PUSH EACH NEW DRUG COMPREHEN 16169 [facility] G[facility] SIVE 6 [facility] METABOLIC INC INC PANEL PRESSURIZ 08064 J[facility]ON G[facility]Z ED/NONPRE 6 [facility] SSURIZED INC INC INHALATIO N TREATMENT CREATINE 83134 JASON GOMEZ KINASE MB 6 MEM [facility]OS[facility] [place] [address] J[facility]ON G[facility]Z AMYLASE 6 [place] [address] J[facility]ON G[facility] ABDOMEN & 6 [facility] PELVIS INC INC W/O CONTRAST MATERIAL CREATINE 84340 [facility] G[facility] KINASE 6 [facility] [place] [place] [address] J[facility]ON [facility] LIPASE 6 [facility] INC INC THER 64461 [facility] G[facility] PROPH/DX 6 [facility] NJX IV INC INC PUSH SINGLE/1S T SBST/DRUG BLOOD 67618 [facility] COUNT 6 [facility] COMPLETE INC INC AUTO&[place] [address] J[facility]ON G[facility] TROPONIN 6 MEM HOS[facility] QUANTITAT INC INC KHUSHBU RADIOLOGI 93281 JASON VUONGON C EXAM 6 MEM HOS[facility]OS[facility] CHEST 2 INC INC VIEWS FRONTAL&L ATERAL NEBULIZER E0570 JOHNATHAN MANN WITH 6 HOME [...] HOME COMPRESSO MEDICAL MEDICAL R EQUIPME EQUIPME PHRM Q0513 YOUR YOUR DISPENSIN 6 PHARMACY PHARMACY [employer] INHALATIO N RX; PER 30 DAYS ALBUTEROL J7613 YOUR YOUR INHAL 6 PHARMACY PHARMACY [employer] PROD THRU DME U DOSE 1 MG ADMN SET A7003 YOUR YOUR SM VOL 6 PHARMACY PHARMACY [employer] PNEUMAT NEBULIZR DISPBL NEBULIZER E0570 JOHNATHAN MANN WITH 6 HOME HOME COMPRESSO MEDICAL MEDICAL R EQUIPME EQUIPME PHRM Q0513 YOUR YOUR DISPENSIN 6 PHARMACY PHARMACY [employer] INHALATIO N RX; PER 30 DAYS ADMN SET A7003 YOUR YOUR SM VOL 6 PHARMACY PHARMACY [employer] PNEUMAT NEBULIZR DISPBL ALBUTEROL J7613 YOUR YOUR INHAL 6 PHARMACY PHARMACY [employer] PROD THRU DME U DOSE 1 MG NEBULIZER E0570 JOHNATHANFLORA MANN WITH 6 HOME HOME COMPRESSO MEDICAL MEDICAL R EQUIPME EQUIPME NEBULIZER E0570 JOHNATHAN MANN WITH 6 HOME HOME COMPRESSO MEDICAL MEDICAL R EQUIPME EQUIPME FULL FACE A7030 JOHNATHAN MANN MASK 6 HOME HOME USED MEDICAL MEDICAL W/POS EQUIPME EQUIPME ARWAY PRESS DEVICE EA HEADGEAR A7035 JOHNATHAN MANN USED 6 HOME HOME W/POSITIV MEDICAL MEDICAL E AIRWAY EQUIPME EQUIPME PRESSURE DEVICE TUBING A7037 JOHNATHAN MANN USED WITH 6 HOME HOME POSITIVE MEDICAL MEDICAL AIRWAY EQUIPME EQUIPME PRESSURE DEVICE NEBULIZER E0570 JOHNATHAN MANN WITH 5 HOME HOME COMPRESSO MEDICAL MEDICAL R EQUIPME EQUIPME NEBULIZER E0570 JOHNATHAN MANN WITH 5 HOME HOME COMPRESSO MEDICAL MEDICAL R EQUIPME EQUIPME RADIOLOGI 95066 JASON Garcia EXAM 5 [facility] KNEE INC INC COMPLETE 4/MORE VIEWS WALKING L4360 PROGRESSI PROGRESSI BOOT 5 VE VE PNEUMATC PODIATRY PODIATRY &/ [place] [address] JASON GOMEZ BLOOD/URI 5 [facility] C ACID INC INC RADEX 02656 [facility] FOOT 5 [facility] COMPLETE INC INC MINIMUM 3 VIEWS COMPREHEN 96487 J[facility]ON GOMEZ SIVE 5 [facility] METABOLIC INC INC PANEL BLOOD 85609 J[facility]ON GOMEZ COUNT 5 [facility] COMPLETE INC INC AUTO&AUTO DIFRNTL WBC SEDIMENTA 41365 J[facility]ON GOMEZ TION RATE 5 [facility] RBC INC INC NON-AUTOM ATED NEBULIZER E0570 JOHNATHAN JOHNATHAN WITH 5 HOME HOME COMPRESSO MEDICAL MEDICAL R EQUIPME EQUIPME FILTER A7038 JOHNATHAN MANN DISPBL 5 HOME HOME USED MEDICAL MEDICAL W/POS EQUIPME EQUIPME ARWAY PRESSURE DEVICE FULL FACE A7030 JOHNATHAN MANN MASK 5 HOME HOME USED MEDICAL MEDICAL W/POS EQUIPME EQUIPME ARWAY PRESS DEVICE EA PHRM Q0513 YOUR YOUR DISPENSIN 5 PHARMACY PHARMACY G FEE [employer] INHALATIO N RX; PER 30 DAYS ADMN SET A7003 YOUR YOUR SM VOL 5 PHARMACY PHARMACY NONFILTR [employer] PNEUMAT NEBULIZR DISPBL ALBUTEROL J7613 YOUR YOUR INHAL 5 PHARMACY PHARMACY NON-CP [employer] PROD THRU DME U DOSE 1 MG NEBULIZER E0570 JOHNATHANFLORA MANN WITH 5 HOME HOME COMPRESSO MEDICAL MEDICAL R EQUIPME EQUIPME BLD GLU A4253 JOHNATHAN MANN TEST/REAG 5 HOME HOME T STRIPS MEDICAL MEDICAL HOME BLD EQUIPME EQUIPME GLU MON-50 HOME E0607 JOHNATHAN MANN BLOOD 5 HOME HOME GLUCOSE MEDICAL MEDICAL MONITOR EQUIPME EQUIPME LANCETS A4259 JOHNATHAN MANN PER BOX 5 HOME HOME OF 100 MEDICAL MEDICAL EQUIPME EQUIPME NEBULIZER E0570 JOHNATHAN MANN WITH 5 HOME HOME COMPRESSO MEDICAL MEDICAL R EQUIPME EQUIPME TUBING A7037 JOHNATHAN MANN USED WITH 5 HOME HOME POSITIVE MEDICAL MEDICAL AIRWAY EQUIPME EQUIPME PRESSURE DEVICE PHRM Q0513 YOUR YOUR DISPENSIN 5 PHARMACY PHARMACY [employer] [facility] INHALATIO N RX; PER 30 DAYS ADMN SET A7003 YOUR YOUR SM VOL 5 PHARMACY PHARMACY NONFILTR [employer] PNEUMAT NEBULIZR DISPBL ALBUTEROL J7613 YOUR YOUR INHAL 5 PHARMACY PHARMACY NON-CP [employer] PROD THRU DME U DOSE 1 MG CREATINE 60209 JASON GOMEZ KINASE MB 5 [facility] FRACTION INC INC ONLY COMPREHEN 18502 JASON GOMEZ SIVE 5 [facility] METABOLIC INC INC PANEL PRESSURIZ 49001 JASON GOMEZ ED/NONPRE 5 [facility] SSURIZED INC INC INHALATIO N TREATMENT CREATINE 93019 J[facility]ON GOMEZ KINASE 5 [facility] TOTAL INC INC THER 08020 JASON GOMEZ PROPH/DX 5 [facility] NJX IV INC INC PUSH SINGLE/1S T SBST/DRUG BLOOD 76061 [facility] G[facility] COUNT 5 [facility] COMPLETE INC INC AUTO&[place] [address] JASON GOMEZ TROPONIN 5 [facility] H[facility] QUANTITAT INC INC KHUSHBU RADIOLOGI 24981 [place] KARINA C EXAM 5 MEDICAL OLIVIA CHEST 2 IMAGING VIEWS ASS FRONTAL&L ATERAL THERAPEUT 68515 J[facility]ON GOMEZ IC 5 [facility] H[facility] INJECTION INC INC IV PUSH EACH NEW DRUG PHARM G0333 YOUR YOUR DISPEN 5 PHARMACY PHARMACY [facility] RX; INITIAL 30-DAY SUPPLY ADMN SET A7003 YOUR YOUR SM VOL 5 PHARMACY PHARMACY NONFILTR [employer] PNEUMAT NEBULIZR DISPBL ALBUTEROL J7613 YOUR YOUR INHAL 5 PHARMACY PHARMACY NON-CP [facility] PROD THRU DME U DOSE 1 MG RADIOLOGI 72772 [facility] C EXAM 5 MEDICAL CHEST 2 IMAGING VIEWS ASS FRONTAL&[place] [address] [facility] ABDOMEN & 5 MEDICAL PELVIS IMAGING [...] MEDICAL W/POS EQUIPME EQUIPME ARWAY PRESSURE DEVICE HEADGEAR A7035 JOHNATHAN JOHNATHAN USED 5 HOME HOME W/POSITIV MEDICAL MEDICAL E AIRWAY EQUIPME EQUIPME PRESSURE DEVICE FULL FACE A7030 JOHNATHAN JOHNATHAN MASK 5 HOME HOME USED MEDICAL MEDICAL W/POS EQUIPME EQUIPME ARWAY PRESS DEVICE EA WATR A7046 JOHNATHAN JOHNATHAN CHAMB 4 HOME HOME HUMDIFIR MEDICAL MEDICAL USED EQUIPME EQUIPME W/POS ARWAY PRSS DEVC R RADIOLOGI 34734 [facility] C EXAM 4 MEDICAL REUBEN CHEST 2 IMAGING VIEWS ASS FRONTAL&L ATERAL TUBING A7037 JOHNATHAN JOHNATHAN USED WITH 4 HOME HOME POSITIVE MEDICAL MEDICAL AIRWAY EQUIPME EQUIPME PRESSURE DEVICE FULL FACE A7030 JOHNATHAN JOHNATHAN MASK 4 HOME HOME USED MEDICAL MEDICAL W/POS EQUIPME EQUIPME ARWAY PRESS DEVICE EA FILTER A7038 JOHNATHAN JOHNATHAN DISPBL 4 HOME HOME USED MEDICAL MEDICAL W/POS EQUIPME EQUIPME ARWAY PRESSURE DEVICE ECG 47197 TITO FRANCIS ROUTINE 4 LEVAR LEVAR ECG W/LEAST 12 LDS I&R ONLY RADIOLOGI 38890 [facility] C EXAM 4 MEDICAL OLIVIA CHEST 2 IMAGING VIEWS ASS FRONTAL&L ATERAL ECG 63159 ERIC YOUNGER ROUTINE 4 ECG W/LEAST 12 LDS I&R ONLY RADIOLOGI 73058 [place] C EXAM 4 MEDICAL OLIVIA CHEST 2 IMAGING VIEWS ASS FRONTAL&L ATERAL FILTER A7038 JOHNATHAN JOHNATHAN DISPBL 4 HOME HOME USED MEDICAL MEDICAL W/POS EQUIPME EQUIPME ARWAY PRESSURE DEVICE HEADGEAR A7035 JOHNATHANFLORA MANN USED 3 HOME HOME W/POSITIV MEDICAL MEDICAL E AIRWAY EQUIPME EQUIPME PRESSURE DEVICE FULL FACE A7030 JOHNATHAN MANN MASK 3 HOME HOME USED MEDICAL MEDICAL W/POS EQUIPME EQUIPME ARWAY PRESS DEVICE EA TUBING A7037 JOHNATHAN JOHNATHAN USED WITH 3 HOME HOME POSITIVE MEDICAL MEDICAL AIRWAY EQUIPME EQUIPME PRESSURE DEVICE TUBING A7037 JOHNATHAN JOHNATHAN USED WITH 3 HOME HOME POSITIVE MEDICAL MEDICAL AIRWAY EQUIPME EQUIPME PRESSURE DEVICE WATR A7046 JOHNATHAN MANN CHAMB 3 HOME HOME HUMDIFIR MEDICAL MEDICAL USED EQUIPME EQUIPME W/POS ARWAY PRSS DEVC R TUBING A7037 JOHNATHAN JOHNATHAN USED WITH 3 HOME HOME POSITIVE MEDICAL MEDICAL AIRWAY EQUIPME EQUIPME PRESSURE DEVICE RADIOLOGI 35262 [place] C EXAM 3 MEDICAL OLIVIA CHEST 2 IMAGING VIEWS ASS FRONTAL&[place] [address] JASON GOMEZ TROPONIN 3 [facility] QUANTITAT INC INC KHUSHBU BLOOD 84018 JASON GOMEZ COUNT 3 [facility] COMPLETE INC INC AUTO&AUTO DIFRNTL WBC ECG 22934 JASON GOMEZ ROUTINE 3 [facility] ECG INC INC W/LEAST 12 LDS TRCG ONLY W/O I&R THER 26725 AJSON GOMEZ PROPH/DX 3 [facility] NJX IV INC INC PUSH SINGLE/1S T SBST/DRUG IAADI 85453 JASON GOMEZ INFFLUENZ 3 [facility] A A VIRUS INC INC IAADI 69886 JASON GOMEZ INFLUENZA 3 [facility] B VIRUS INC INC CREATINE 18323 JASON GOMEZ KINASE 3 [facility] TOTAL INC INC ECG 58084 LAWANDA SHAE ROUTINE 3 EMERGENCY III [place] ECG SERVICES W/LEAST 12 LDS I&R ONLY RADIOLOGI 24286 JASON Garcia EXAM 3 [facility] CHEST 2 INC INC VIEWS FRONTAL&L ATERAL CREATINE 38557 JASON GOMEZ KINASE MB 3 [facility] FRACTION INC INC ONLY PRESSURIZ 88573 JASON GOMEZ ED/NONPRE 3 [facility] SSURIZED INC INC INHALATIO N TREATMENT BASIC 96651 JASON GOMEZ METABOLIC 3 [facility] PANEL INC INC CALCIUM TOTAL HEADGEAR A7035 JOHNATHAN MANN USED 2 HOME HOME W/POSITIV MEDICAL MEDICAL E AIRWAY EQUIPME EQUIPME PRESSURE DEVICE FILTER A7038 JOHNATHAN MANN DISPBL 2 HOME HOME USED MEDICAL MEDICAL W/POS EQUIPME EQUIPME ARWAY PRESSURE DEVICE FULL FACE A7030 JOHNATHAN JOHNATHAN MASK 2 HOME HOME USED MEDICAL MEDICAL W/POS EQUIPME EQUIPME ARWAY PRESS DEVICE [place] MRI 35586 AVERION-M AVERION-M SPINAL 2 AHLOCH AHLOCH CANAL DOMENICA DOMENICA CERVICAL W/O & W/CONTR MATRL INJECTION A9579 AVERION-M AVERION-M 2 AHLOCH AHLOCH GADOLINIU DOMENICA DOMENICA M BASED MR CONTRAST NOS ML IAADI 27699 JASON GOMEZ INFFLUENZ 2 [facility] A A VIRUS INC INC IAADI 15416 JASON GOMEZ INFLUENZA 2 [facility] B VIRUS INC INC THERAPEUT 85547 JASON GOMEZ IC 2 [facility] PROPHYLAC INC INC TIC/DX INJECTION SUBQ/[place] [address] JASON GOMEZ STREPTOCO 2 [facility] CCUS INC INC GROUP A FULL FACE A7030 JOHNATHAN JOHNATHAN MASK 2 HOME HOME USED MEDICAL MEDICAL W/POS EQUIPME EQUIPME ARWAY PRESS DEVICE EA HEADGEAR A7035 JOHNATHAN MANN USED 2 HOME HOME W/POSITIV MEDICAL MEDICAL E AIRWAY EQUIPME EQUIPME PRESSURE DEVICE WATR A7046 JOHNATHAN MANN CHAMB 2 HOME HOME [facility]ICAL USED EQUIPME EQUIPME W/[place] [address] JASON GOMEZ INFUSION 2 [facility] THERAPY/P INC INC ROPHYLAXI S /DX 1ST TO 1 HR THERAPEUT 81432 JASON GOMEZ IC 2 [facility] INJECTION INC INC IV PUSH EACH NEW DRUG RADIOLOGI 92477 JASON GOMEZ C 2 [facility] EXAMINATI INC INC ON CHEST [place] FRONTAL COMPREHEN 86738 JASON GOMEZ SIVE 2 [facility] METABOLIC INC INC PANEL PRESSURIZ 89703 JASON GOMEZ ED/NONPRE 2 [facility] SSURIZED INC INC INHALATIO N TREATMENT CREATINE 77144 JASON GOMEZ KINASE MB 2 [facility] FRACTION INC INC ONLY RHYTHM 52005 JASON GOMEZ ECG 1-3 2 [facility] LEADS INC INC TRACING ONLY W/O I&R ECG 06223 JASON GOMEZ ROUTINE 2 [facility] ECG INC INC W/LEAST 12 LDS TRCG ONLY W/O I&R CREATINE 91213 JASON GOMEZ KINASE 2 [facility] TOTAL INC INC BLOOD 45389 JASON GOMEZ COUNT 2 [facility] COMPLETE INC INC AUTO&AUTO DIFRNTL WBC CULTURE 55984 JASON GOMEZ BACTERIAL 2 [facility] BLOOD INC INC AEROBIC W/[place] [address] JASON GOMEZ TROPONIN 2 [facility] QUANTITAT INC INC KHUSHBU NATRIURET 15656 JASON GOMEZ IC 2 [facility] PEPTIDE INC INC MRI 04606 AVERION-M AVERION-M SPINAL 2 AHLOCH AHLOCH CANAL DOMENICA DOMENICA CERVICAL W/O & W/CONTR MATRL MRI BRAIN 70224 AVERION-M AVERION-M BRAIN 2 AHLOCH AHLOCH STEM W/O DOMENICA DOMENICA W/CONTRAS T MATERIAL INJECTION [id number] AVERION-M AVERION-M 2 AHLOCH AHLOCH GADOLINIU DOMENICA DOMENICA M BASED MR CONTRAST NOS ML MRI 13257 LUTZ TRA LUTZ TRA SPINAL 2 CANAL THORACIC W/CONTRAS T MATRL MRI 99811 T[place]ANOW TALANOW SPINAL 2 ROL ROL CANAL THORACIC W/O CONTRAST MATRL RADEX 69188 JASON GOMEZ SPINE 2 [facility] TH[facility]ACIC INC INC 3 VIEWS PHRM Q0513 [facility] DIS[facility] 2 [facility] PHARMACY G FEE 3350 3350 INHALATIO N RX; PER 30 DAYS ALBUTEROL J7613 [facility] INHAL 2 [facility]ARMACY PHARMACY NON-CP 3350 3350 PROD THRU DME U DOSE 1 MG FULL FACE A7030 JOHNATHAN SINGHRELL MASK 2 HOME HOME USED MEDICAL MEDICAL W/POS EQUIPME EQUIPME ARWAY PRESS DEVICE EA WATR A7046 JOHNATHAN MANN CHAMB 2 HOME HOME HUMDIFIR MEDICAL MEDICAL USED EQUIPME EQUIPME W/POS ARWAY PRSS DEVC R TUBING A7037 JOHNATHAN MANN USED WITH 2 HOME HOME POSITIVE MEDICAL MEDICAL AIRWAY EQUIPME EQUIPME PRESSURE DEVICE HEADGEAR A7035 JOHNATHAN MANN USED 2 HOME HOME W/POSITIV MEDICAL MEDICAL E AIRWAY EQUIPME EQUIPME PRESSURE DEVICE BASIC 28568 JASON GOMEZ METABOLIC 1 [facility] [place] [address] JASON GOMEZ INFUSION 1 [facility] THERAPY/P INC INC ROPHYLAXI S /DX 1ST TO 1 HR THERAPEUT 83522 JASON GOMEZ IC 1 [facility] INJECTION INC INC IV PUSH EACH NEW DRUG RADIOLOGI 35341 JASON GOMEZ C EXAM 1 [facility] CHEST 2 INC INC VIEWS FRONTAL&L ATERAL ECG 21357 MCKEMIE MCKEMIE ROUTINE 1 JR MONICA JR MONICA ECG W/LEAST 12 LDS I&R ONLY PRESSURIZ 66123 JASON GOMEZ ED/NONPRE 1 [facility] SSURIZED INC INC INHALATIO N TREATMENT RHYTHM 46765 JASON GOMEZ ECG 1-3 1 [facility] LEADS INC INC TRACING ONLY W/O I&R CREATINE 74744 JASON GOMEZ KINASE MB 1 [facility] FRACTION INC INC ONLY CREATINE 51548 JASON GOMEZ KINASE 1 [facility] TOTAL INC INC ECG 27187 JASON GOMEZ ROUTINE 1 [facility] ECG INC INC W/LEAST 12 LDS TRCG ONLY W/O I&[place] [address] JASON GOMEZ TROPONIN 1 [facility] QUANTITAT INC INC KHUSHBU BLOOD 89118 JASON JASON COUNT 1 [facility] COMPLETE INC INC AUTO&AUTO DIFRNTL WBC CONTINUOU E0601 [place] S 1 E O2 E O2 POSITIVE AIRWAY PRESSURE DEVICE HUMDIFIR E0562 [facility] HEATED 1 E O2 E O2 USED W/POS ARWAY PRESSURE DEVICE BASIC 13625 JASON GOMEZ METABOLIC 1 [facility] PANEL INC INC CALCIUM TOTAL BLOOD 60696 JASON GOMEZ COUNT 1 [facility] COMPLETE INC INC AUTO&[place] [address] JASON GOMEZ TROPONIN 1 [facility] QUANTITAT INC INC KHUSHBU THER 81930 JASON GOMEZ PROPH/DX 1 [facility] NJX IV INC INC PUSH SINGLE/1S T SBST/DRUG CREATINE 47962 JASON GOMEZ KINASE 1 [facility] TOTAL INC INC ECG 61662 JASON GOMEZ ROUTINE 1 [facility] ECG INC INC W/LEAST 12 LDS TRCG ONLY W/O I&R CREATINE 13099 JASON GOMEZ KINASE MB 1 [facility] FRACTION INC INC ONLY PRESSURIZ 57000 JASON GOMEZ ED/NONPRE 1 [facility] SSURIZED INC INC INHALATIO N TREATMENT RADIOLOGI 99971 JASON GOMEZ C EXAM 1 [facility] CHEST 2 INC INC VIEWS FRONTAL&L ATERAL CONTINUOU E0601 [place] S 1 E O2 E O2 POSITIVE AIRWAY PRESSURE DEVICE HUMDIFIR E0562 [place] HEATED 1 E O2 E O2 USED W/POS ARWAY PRESSURE DEVICE HUMDIFIR E0562 [place] [facility]ATED 1 E O2 E O2 USED W/POS ARWAY PRESSURE DEVICE CONTINUOU E0601 [facility] S 1 E O2 E O2 POSITIVE AIRWAY PRESSURE DEVICE CONTINUOU E0601 [facility] S 1 E O2 E O2 POSITIVE AIRWAY PRESSURE DEVICE HUMDIFIR E0562 [facility] HEATED 1 E O2 E O2 USED W/POS ARWAY PRESSURE DEVICE HUMDIFIR E0562 [facility] HEATED 1 E O2 E O2 USED W/POS ARWAY PRESSURE DEVICE CONTINUOU E0601 [facility] S 1 E O2 E O2 POSITIVE AIRWAY PRESSURE DEVICE CONTINUOU E0601 [facility] S 1 E O2 E O2 POSITIVE AIRWAY PRESSURE DEVICE HUMDIFIR E0562 [facility] HEATED 1 E O2 E O2 USED W/POS ARWAY PRESSURE DEVICE WATR A7046 [facility] 1 E O2 E O2 HUM[place]IFIR USED W/POS ARWAY PRSS DEVC R CONTINUOU E0601 [facility] S 1 E O2 E O2 POSITIVE AIRWAY PRESSURE DEVICE HUMDIFIR E0562 [facility] HEATED 1 E O2 E O2 USED W/POS ARWAY PRESSURE DEVICE ECG 95496 ALONSO GUPTA ROUTINE 1 SUSHMA SUSHMA ECG W/LEAST 12 LDS I&R ONLY CONTINUOU E0601 [facility] S 1 E O2 E O2 POSITIVE AIRWAY PRESSURE DEVICE HUMDIFIR E0562 [facility] HEATED 1 E O2 E O2 USED W/POS ARWAY PRESSURE DEVICE HUMDIFIR E0562 [facility] HEATED 0 E O2 E O2 USED W/POS ARWAY PRESSURE DEVICE CONTINUOU E0601 [facility] S 0 E O2 E O2 POSITIVE AIRWAY PRESSURE DEVICE CONTINUOU E0601 [facility] S 0 E O2 E O2 POSITIVE AIRWAY PRESSURE DEVICE HUMDIFIR E0562 [facility] HEATED 0 E O2 E O2 USED W/POS ARWAY PRESSURE DEVICE HUMDIFIR E0562 [facility] HEATED 0 E O2 E O2 USED W/POS ARWAY PRESSURE DEVICE CONTINUOU E0601 [facility] S 0 E O2 E O2 POSITIVE AIRWAY PRESSURE DEVICE CONTINUOU E0601 [facility] S 0 E O2 E O2 POSITIVE AIRWAY PRESSURE DEVICE HUMDIFIR E0562 [facility] HEATED 0 E O2 E O2 USED W/POS ARWAY PRESSURE DEVICE POLYSOM 89126 [place] 6/>YRS 0 U BOG U BOG SLEEP W/CPAP 4/> ADDL DILCIA ATTND RADIOLOGI 91123 [facility] C EXAM 0 Y OF Y OF CHEST 2 [facility] VIEWS E HOS E HOS FRONTAL&L ATERAL RADIOLOGI 72251 JULITO VILA C EXAM 0 TL L TL L CHEST 2 VIEWS FRONTAL&L ATERAL THER 91082 [facility] PROPH/DX 0 Y OF Y OF NJX IV [facility] PUSH E E SINGLE/[address] [place] [address] HOSPITAL T SBST/DRUG RADIOLOGI 41587 KING VALDIVIA C 0 IVANA G IVANA G EXAMINATI ON CHEST SINGLE VIEW FRONTAL DETER 07404 DERICK CAMPBELL RESIST TO 0 AIRFLO OSCILLATO RY/PLETHY SMOGRAP THRC GAS 34652 DERICK CAMPBELL VOL 0 CARBON 01318 DERICK CAMPBELL MONOXIDE 0 DIFFW/CAP PULMONARY 71602 DERICK CAMPBELL STRESS 0 TESTING SIMPLE CV STRS 78823 RYLAN FAGAN, TST 0 MARY Sanchez XERS&/OR RX CONT ECG I&R ONLY MYOCARDIA 82411 RYLAN FAGAN L SPECT 0 MARY Sanchez MULTIPLE STUDIES RADIOLOGI 41393 VYLETA VJAEL, C EXAM 0 XIOMARA SOLANO S CHEST 2 VIEWS FRONTAL&L ATERAL RADIOLOGI 28306 U OF L U OF L C EXAM 9 (P1017) (P1017) CHEST 2 UNIV UNIV VIEWS RADIOL RADIOL FRONTAL&L ASSOC ASSOC ATERAL RADIOLOGI 73717 U OF L U OF L C EXAM 9 (P1017) (P1017) CHEST 2 UNIV UNIV VIEWS RADIOL RADIOL FRONTAL&L ASSOC ASSOC ATERAL RADEX 16156 U OF L U OF L ANKLE 9 (P1017) (P1017) COMPLETE UNIV UNIV MINIMUM 3 RADIOL RADIOL VIEWS ASSOC ASSOC RESP ASST E0470 [facility] DEV 9 E 02 E 02 BI-LEVL PRSS CAPABILIT Y W/O BACKU HUMDIFIR E0562 [facility] HEATED 9 E 02 E 02 USED W/POS ARWAY PRESSURE DEVICE RADIOLOGI 66422 U OF L U OF L C EXAM 9 (P1017) (P1017) CHEST 2 UNIV UNIV VIEWS RADIOL RADIOL FRONTAL&L ASSOC ASSOC ATERAL HUMDIFIR E0562 [facility] HEATED 9 E 02 E 02 USED W/POS ARWAY PRESSURE DEVICE RESP ASST E0470 [facility] DEV 9 E 02 E 02 BI-LEVL PRSS CAPABILIT Y W/O BACKU HUMDIFIR E0562 [facility] HEATED 8 E 02 E 02 USED W/POS ARWAY PRESSURE DEVICE RESP ASST E0470 [facility] DEV 8 E 02 E 02 BI-LEVL PRSS CAPABILIT Y W/O BACKU NEBULIZER E0570 [facility], WITH 8 INC INC COMPRESSO R O2 CONC 1 E1390 [facility], DEL PORT 8 INC INC 85%/>02 [facility] POLYSOM 36070 [place] 6/>YRS 8 U, FINN U, FINN SLEEP W/CPAP 4/> ADDL DILCIA ATTND INITIAL 31478 [facility] 8 JR, SONY JR, SONY CARE/DAY R R 70 MINUTES RADIOLOGI 33008 U OF L U OF L C EXAM 8 (P1017) (P1017) CHEST 2 UNIV UNIV VIEWS RADIOL RADIOL FRONTAL&L ASSOC ASSOC ATERAL O2 CONC 1 E1390 [facility] 8 INC INC 85%/>02 CONC AT [facility] FLW RATE NEBULIZER E0570 [facility], WITH 8 INC INC COMPRESSO R O2 CONC 1 E1390 [facility], DEL PORT 8 INC INC 85%/>02 CONC AT PRSC FLW RATE NEBULIZER E0570 [facility] WITH 8 INC INC COMPRESSO R O2 CONC 1 E1390 [facility] 8 INC INC 85%/>02 CONC AT PRSC FLW RATE NEBULIZER E0570 [facility], WITH 8 INC INC COMPRESSO R O2 CONC 1 E1390 [facility], DEL PORT 8 INC INC 85%/>02 CONC AT PRSC FLW RATE POLYSOM 48024 UNIVERSIT UNIVERSIT 6/>YRS 8 Y OF Y OF SLEEP 4/> [facility] ATTND NEBULIZER E0570 [facility], WITH 8 INC INC COMPRESSO R O2 CONC 1 E1390 [facility], DEL PORT 8 INC INC 85%/>02 CONC AT PRSC FLW RATE NEBULIZER E0570 [facility], WITH 8 INC INC COMPRESSO R NEBULIZER E0570 [facility], WITH 8 INC INC COMPRESSO R NEBULIZER E0570 [facility], WITH 8 INC INC COMPRESSO R ADMN SET A7005 [facility], W/SM VOL 8 INC INC NONFILTR NEBULIZR NON-DISPB L RADIOLOGI 20270 KING VALDIVIA, C EXAM 8 IVANA G IVANA G CHEST 2 VIEWS FRONTAL&L ATERAL Encounters Encounter Start End Date Code Location Performer Type Date OFFICE 18679 ALLERGY [facility]AE OUTPATI[facility] 7 7 PARTNERS T VISIT OF [facility] 40 CO MINUTES EMERGENCY 06227 [facility] 7 7 [facility]PART[facility] INC T VISIT LOW/MODER SEVERITY HOSPITAL [facility] - 7 7 [facility] INC T EMERGENCY 46257 ALEXANDRE FRANCIS 7 7 PHYSICIAN DEPARTMEN S, [facility] T VISIT HIGH/URGE NT SEVERITY EMERGENCY 76828 [facility] 7 7 [facility] T VISIT MODERATE SEVERITY HOSPITAL [facility]ON - 7 7 [facility] OUT[facility]EN [facility] T OFFICE 21743 V[facility] 7 7 RADHA LANDAVERDE T VISIT [facility] 15 MINUTES EMERGENCY 04240 [facility] 7 7 [facility] T VISIT HIGH/URGE NT SEVERITY HOSPITAL JASON - 7 7 [facility] OUTPATIEN [facility] T EMERGENCY 30271 JASON 6 6 [facility] T VISIT HIGH/URGE NT SEVERITY HOSPITAL JASON - 6 6 [facility] JASON - 5 5 [facility] OUTPATIEN [facility] T EMERGENCY 45803 JASON 5 5 [facility] T VISIT LOW/MODER SEVERITY HOSPITAL JASON [facility] 5 5 [facility] OUTPATIEN [facility] T HOSPITAL JASON - 5 5 [facility] OUTPATIEN [facility] T EMERGENCY 16232 JASON 5 5 [facility] T VISIT MODERATE SEVERITY EMERGENCY 69510 LAWANDA FRANCIS 3 3 [facility]IS[facility] MODERATE SEVERITY EMERGENCY 78524 JASON 3 3 [facility] T VISIT MODERATE SEVERITY EMERGENCY 82943 LAWANDA SHEA DEPT 3 3 EMERGENCY III MONICA VISIT SERVICES HIGH SEVERITY& THREAT [facility] JASON - 3 3 [facility] OUTPATIEN INC T EMERGENCY 23977 JASON 2 2 [facility] T VISIT MODERATE SEVERITY HOSPITAL JASON - 2 2 [facility] OUTPATIEN [facility] EMERGENCY 22916 HINABLAYNE SANTAMARIAANGIE 2 2 III MONICA III [facility] T VISIT HIGH/URGE NT SEVERITY EMERGENCY 80308 JASON 2 2 [facility] T VISIT HIGH/URGE NT SEVERITY HOSPITAL JASON - 2 2 [facility] [place] OFF[facility] 99130 BOB [facility]TE [facility] 2 2 T VISIT 10 MINUTES OFFICE 54647 [facility] 2 2 WENDY WENDY NEW 45 MINUTES HOSPITAL JASON - 2 2 [facility] JASON [facility] 1 1 [facility] [place] EMERGENCY 85564 JASON 1 1 [facility] T VISIT HIGH/URGE NT SEVERITY EMERGENCY 91309 JASON 1 1 [facility] T VISIT HIGH/URGE NT SEVERITY HOSPITAL JASON - 1 1 [facility] UN[facility]ERSIT - 0 0 [facility] UNIVERSIT [facility] 0 0 Y OF [place]PATIEN [place] [facility] EMERGENCY 76105 Royal LUNA D 0 0 [facility] T VISIT HIGH/URGE NT SEVERITY HOSPITAL UNIVERSIT - 0 0 [facility] OFF[facility] 02845 [facility] JR, SONY JR, SONY T VISIT R R 15 MINUTES EMERGENCY 96710 EVGENY PEPPER 9 9 MD REUBEN ALEXIS MD [facility] T VISIT HIGH/URGE NT SEVERITY EMERGENCY 65341 UNIVERSIT 9 9 Y OF [facility] VISIT E LOW/MODER HOSPITAL SEVERITY EMERGENCY 63261 SANDI JUNIOR, [address] [facility] VISIT MODERATE SEVERITY HOSPITAL UNIVERSIT - 9 9 [facility] 75291 JARON SALMERON, 9 [address] S J [place] [facility] VISIT HIGH/URGE NT SEVERITY OFFICE 63673 [place] [facility] 9 9 U, FINN U, FINN Smith [facility] 30 MINUTES [facility]ERS[facility] - 8 8 [facility] - 8 8 Y [facility]
--- OUTSIDE RECORDS SUMMARY | 2017-04-09 16:58 | External Medical Summary Rpt | CCD ---
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 Unavailable Unavailable HOSPITAL P, [facility] Unavailable Unavailable IMAGING ASS, [facility] IVANA VALDIVIA KING, Unavailable Unavailable WANDY MARSH JR, JR Unavailable Unavailable [facility], Unavailable Unavailable [facility], Unavailable Unavailable [facility], Unavailable Unavailable [facility], LUTZ TRA Unavailable Unavailable [facility], [facility] TRA Unavailable Unavailable [facility] Unavailable Unavailable SERVICES, [facility] MCKEMIE JR MONICA, Unavailable Unavailable [...] (P1017) [facility] Unavailable Unavailable [facility] Unavailable Unavailable [facility], [facility] Neville SALMERON, Unavailable Unavailable Neville SALMERON [...] 03-17-2017 [place] [facility] [place] [id number] UNSPECIFIED 03-10-2017 YOUR [facility] PHARMACY UNCOMPLICAT [facility] ED R0602 SHORTNESS 02-27-2017 [facility] MEDICAL IMAGING ASS I10 ESSENTIAL 01-01-2017 [facility] HYPERTENSIO PLLC N L509 URTICARIA 01-01-2017 [facility] UNSPECIFIED [facility]ICIANS, PLLC E119 TYPE 2 12-23-2016 [facility] MELLITUS INC WITHOUT COMPLICATIO NS M125VZP ANGIONEUROT 12-23-2016 [facility] FOSTER EDEMA PHYSICIANS, INITIAL [facility] ENCOUNTER Z720 TOBACCO USE 12-23-2016 [facility] G4733 OBSTRUCTIVE 10-30-2016 [facility] ADULT MEDICAL PEDIATRIC EQUIPME H21607 UNSPECIFIED 07-31-2016 A Jose GARCIA ASTHMA PSC WITH ACUTE EXACERBATIO N J209 ACUTE 07-28-2016 [place] [facility]ITIS [facility] UNSPECIFIED HOSPITAL P J440 COPD WITH 07-28-2016 [place] ACUTE LOWER [facility] P RESPIRATORY INFECTION R05 COUGH 07-28-2016 [place] [facility] J441 CHRONIC 11-12-2015 [facility]STRUCTIVE [facility] PULMONARY INC DZ W/EXACERBAT ION M545 LOW BACK 11-12-2015 [facility] PAIN [facility] INC R0600 DYSPNEA 11-12-2015 [place] [facility]NSPECIFIED [facility] R1032 LEFT LOWER 11-12-2015 [place] [facility] M30672 PAIN IN 04-30-2015 [place] LEFT KNEE [facility]ICAL IM[facility]ING [facility] E1141 TYPE 2 04-25-2015 PROGR[facility] DIABETES PODIATRY MELLITUS W/DIAB MONONEUROPA THY X37882 SPONTANEOUS 04-25-2015 PROGRESSIVE RUPTURE PODIATRY FLEXOR TENDONS LT ANKLE FOOT Q17712 PAIN IN 04-25-2015 PROGRESSIVE LEFT FOOT PODIATRY B353 TINEA PEDIS 04-23-2015 [facility] 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 INC S 17807 OBSTRUCTIVE 03-12-2015 [facility] MEDICAL EQUIPME 14563 ASTHMA, 03-06-2015 [facility] U[facility]PECIFIED [facility]AC[facility] , [facility] UNSPECIFIED STATUS 48918 DIAB W/O 02-27-2015 [facility] MENTION HOME COMP TYPE MEDICAL II/UNS TYPE EQUIPME UNCNTRL 4019 UNSPECIFIED 12-30-2014 [facility]SSENTIAL [facility] HYPERTENSIO INC N 486 PNEUMONIA, 12-30-2014 [facility] ORGANISM [facility] UNSPECIFIED INC 496 CHRONIC 12-30-2014 [facility] AIRWAY [facility] OBSTRUCTION INC NEC 35750 SHORTNESS 12-30-2014 [facility] 7862 COUGH 12-30-2014 [facility] 86093 CHEST PAIN 12-06-2014 [place] UNSPECIFIED [facility] IM[facility]ING ASS 67043 ABDOMINAL 10-19-2014 [place] PAIN, MEDICAL UNSPECIFIED IMAGING ASS SITE 5180 PULMONARY 04-19-2014 [place] COLLAPSE [facility] 48020 PAINFUL 02-21-2014 [facility] RESPIRATION 81338 ASTHMA 10-09-2013 ERIC YOUNGER UNSPECIFIED WITH EXACERBATIO N 99727 WHEEZING 10-09-2013 [place] [facility] V140 PERSONAL 10-09-2013 [facility] ALLERGY TO HOSPITAL P PENICILLIN 3804 IMPACTED 06-12-2013 [facility] EMERGENCY SERVICES 83873 OTHER 10-04-2012 [place] NONSPECIFIC MEDICAL ABNORMAL IMAGING ASS FINDING OF LUNG FIELD 33267 OBSTRUCTIVE 09-25-2012 [place] CHRONIC [facility]ITIS HOSPITAL P WITH EXACERBATIO N 7231 CERVICALGIA 04-07-2012 [facility] LOCH DOMENICA 7241 PAIN IN 04-07-2012 [facility] THORACIC LOCH DOMENICA SPINE 462 ACUTE 02-25-2012 WEHRMAN III PHARYNGITIS MONICA 4660 ACUTE 01-21-2012 [place] BRONCHITIS [facility] INC 3360 SYRINGOMYEL 01-07-2012 BOB AVA IA AND SYRINGOBULB IA 7245 UNSPECIFIED 12-31-2011 MACK BACKACHE WENDY 7812 ABNORMALITY 12-31-2011 [facility] OF GAIT LOCH DOMENICA 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 7820 DISTURBANCE 11-26-2011 [place] ROL OF SKIN SENSATION 03586 OTHER 10-10-2009 Royal LU[place] D[place] [address] HIGH 10-03-2009 DERICK CAMPBELL ALTITUDE PERIODIC BREATHING 73520 EXTRINSIC 10-03-2009 DERICK SHANNAN ASTHMA, UNSPECIFIED V472 OTHER 10-03-2009 DERICK SHANNAN CARDIORESPI RATORY PROBLEMS V0481 NEED 04-23-2009 [facility] PROPHYLACTI JR, SONY Garcia VACCINATION &INOCULATIO N FLU 34351 OTHER 04-15-2009 [facility] DISEASES OF (P1017) LUNG NOT [facility]IV RAD[facility] ELSEWHERE ASSOC CLASSIFIED 57430 ACUTE 04-15-2009 EVGENY ALEXIS BRONCHOSPSTEFFEN Guerra 18968 PAIN IN 11-05-2008 [facility] JOINT, (P1017) ANKLE AND [facility] FOOT ASSOC 13129 UNSPECIFIED 11-05-2008 SANDI, SITE OF LIYA Guerra ANKLE SPRAIN AND STRAIN E8888 OTHER FALL 11-05-2008 LIYA JUNIOR 1629 MALIGNANT 05-06-2008 [facility], NEOPLASM INC BRONCHUS&EVON NG UNSPEC SITE 32188 OBST 04-27-2008 [facility] CHRONIC JRSONY R BRONCHITIS W/ACUTE BRONCHITIS 28663 UNSPECIFIED 11-23-2007 [place] SLEEP OF [facility]NEA [facility] 69580 OTHER 11-23-2007 [facility] MALAISE AND OF FATIGUE [facility] 7840 HEADACHE 11-23-2007 [facility] 7806 FEVER & OTH 08-10-2007 IVANA [...] Procedure DOS Code Location Performer Comment PERCUTANE 39070 ALLERGY BAE OUS TESTS 7 [facility] W/ALLERGE CO KENRICK EXTRACTS INTRACUTA 94782 ALLERGY BAE NEOUS 7 [facility] [place] W/ALLERGE CO KENRICK EXTRACTS PHRM Q0513 YOUR YOUR DISPENSIN 7 PHARMACY PHARMACY G FEE [employer] INHALATIO N RX; PER 30 DAYS ADMN SET A7003 YOUR YOUR SM VOL 7 PHARMACY PHARMACY NONFIL[employer].la PNEUMAT NEBULIZR DISPBL ALBUTEROL J7613 YOUR YOUR INHAL 7 PHARMACY PHARMACY NON-CP [employer] PROD THRU DME U DOSE 1 MG RADIOLOGI 62304 [facility] C EXAM 7 MEDICAL CHEST 2 IMAGING VIEWS ASS FRONTAL&L ATERAL ALBUTEROL J7613 YOUR YOUR INHAL 7 PHARMACY PHARMACY NON-CP [employer] PROD THRU DME U DOSE 1 MG ADMN SET A7003 YOUR YOUR SM VOL 7 PHARMACY PHARMACY NONFILTR [employer] PNEUMAT NEBULIZR DISPBL PHRM Q0513 YOUR YOUR DISPENSIN 7 PHARMACY PHARMACY [employer] [facility] INHALATIO N RX; PER 30 DAYS THERAPEUT 84814 [facility] IC 7 [facility] HOS[facility] PROPHYLAC INC INC TIC/DX INJECTION SUBQ/IM THER 51437 [facility] PROPH/DX 7 [facility] NJX IV INC INC PUSH SINGLE/1S T SBST/DRUG PRESSURIZ 45799 [facility] ED/NONPRE 7 [facility] SSURIZED INC INC INHALATIO N TREATMENT THERAPEUT 73884 [facility] IC 7 [facility] INJECTION INC INC IV PUSH EACH NEW DRUG PHRM Q0513 YOUR YOUR DISPENSIN 7 PHARMACY PHARMACY [employer] [facility] INHALATIO N RX; PER 30 DAYS ADMN SET A7003 YOUR YOUR SM VOL 7 PHARMACY PHARMACY Balloon [facility] PNEUMAT NEBULIZR DISPBL ALBUTEROL J7613 YOUR YOUR INHAL 7 PHARMACY PHARMACY NON-[employer] PROD THRU DME U DOSE 1 MG [...] YOUR YOUR SM VOL 7 PHARMACY PHARMACY [employer] PNEUMAT NEBULIZR DISPBL ALBUTEROL J7613 YOUR YOUR INHAL 7 PHARMACY PHARMACY [employer] PROD THRU DME U DOSE 1 MG RADIOLOGI 57658 VERONIKA Garcia EXAM 7 MEDICAL CHEST 2 IMAGING VIEWS ASS FRONTAL&L ATERAL RADIOLOGI 96889 [facility] C EXAM 7 [facility] CHEST 2 INC INC VIEWS FRONTAL&L ATERAL CULTURE 13468 [facility] BACTERIAL 7 [facility] BLOOD INC INC AEROBIC W/ID ISOLATES THER 65830 [facility] PROPH/DX 7 [facility] NJX IV INC INC PUSH SINGLE/1S T SBST/DRUG BLOOD 55971 [facility] COUNT 7 [facility] COMPLETE INC INC AUTO&AUTO DIFRNTL WBC ECG 62066 [facility] ROUTINE 7 [facility] ECG INC INC W/LEAST 12 LDS TRCG ONLY W/O I&R IAADI 09127 [facility] INFLUENZA 7 [facility] B VIRUS INC INC IAADI 63179 [facility] INFFLUENZ 7 [facility] A A VIRUS INC INC PRESSURIZ 55114 [facility] ED/NONPRE 7 [facility] SSURIZED INC INC INHALATIO N TREATMENT COMPREHEN 47390 [facility] SIVE 7 [facility] [address] [facility] G[facility] LACTATE 7 [facility]OS[facility] INC INC ECG 50574 J[facility]ON SABA JR ROUTINE 7 [facility] W/LEAST P 12 LDS I&R ONLY [...] YOUR YOUR SM VOL 6 PHARMACY PHARMACY NONFIL[employer]ory Technologies, Inc[employer] LLC PNEUMAT NEBULIZR DISPBL ALBUTEROL J7613 YOUR YOUR INHAL 6 PHARMACY PHARMACY NON-CP [employer] PROD THRU DME U DOSE 1 MG TUBING A7037 [facility] MANN USED WITH 6 HOME HOME POSITIVE MEDICAL MEDICAL AIRWAY EQUIPME EQUIPME PRESSURE DEVICE WATR A7046 [facility] MANN CHAMB 6 HOME HOME HUMDIFIR MEDICAL MEDICAL USED EQUIPME EQUIPME W/POS ARWAY PRSS DEVC R ADMN SET A7003 YOUR YOUR SM VOL 6 PHARMACY PHARMACY NONFIL[employer] Technologies, Inc[employer] LLC PNEUMAT NEBULIZR DISPBL FULL FACE A7030 [facility] MASK 6 HOME HOME USED MEDICAL MEDICAL W/POS EQUIPME EQUIPME ARWAY PRESS DEVICE EA HEADGEAR A7035 [facility] MANN USED 6 HOME HOME W/POSITIV MEDICAL MEDICAL E AIRWAY EQUIPME EQUIPME PRESSURE DEVICE ALBUTEROL J7613 YOUR YOUR INHAL 6 PHARMACY PHARMACY NON-CP [facility] PROD THRU DME U DOSE 1 MG ALBUTEROL J7613 YOUR YOUR INHAL 6 PHARMACY PHARMACY NON-CP [facility] LLC PROD THRU DME U DOSE 1 MG ADMN SET A7003 YOUR YOUR SM VOL 6 PHARMACY PHARMACY NONFILTR [facility] PNEUMAT NEBULIZR DISPBL NEBULIZER E0570 [facility] MANN WITH 6 HOME HOME COMPRESSO MEDICAL MEDICAL R EQUIPME EQUIPME RADIOLOGI 07949 [place] KARINA Garcia 6 MEDICAL OLIVIA EXAMINATI IMAGING ON CHEST ASS SINGLE VIEW FRONTAL THERAPEUT 42029 [facility] G[facility] IC 6 [facility] INJECTION INC INC IV PUSH EACH NEW DRUG COMPREHEN 18876 [facility] GOMZE SIVE 6 [facility] METABOLIC INC INC PANEL PRESSURIZ 06152 [facility] ED/NONPRE 6 [facility] SSURIZED INC INC INHALATIO N TREATMENT CREATINE 86836 [facility] KINASE MB 6 [facility] [place] [address] [facility] G[facility] AMYLASE 6 [place] [address] [facility] G[facility] ABDOMEN & 6 [facility] PELVIS INC INC W/O CONTRAST MATERIAL CREATINE 12622 [facility] KINASE 6 [facility] [place] [address] [facility] LIPASE 6 [facility] INC INC THER 09817 [facility] PROPH/DX 6 [facility] NJX IV INC INC PUSH SINGLE/1S T SBST/DRUG BLOOD 65486 [facility] COUNT 6 [facility] COMPLETE INC INC AUTO&[place] [address] [facility] G[facility] TROPONIN 6 MEM HOSP [facility] QUANTITAT INC INC KHUSHBU RADIOLOGI 63928 J[facility]ON VUONGON C EXAM 6 MEM HOSP [...] Q0513 YOUR YOUR DISPENSIN 6 PHARMACY PHARMACY [employer] INHALATIO N RX; PER 30 DAYS ALBUTEROL J7613 YOUR YOUR INHAL 6 PHARMACY PHARMACY [employer] PROD THRU DME U DOSE 1 MG ADMN SET A7003 YOUR YOUR SM VOL 6 PHARMACY PHARMACY [employer] PNEUMAT NEBULIZR DISPBL NEBULIZER E0570 [facility] MANN WITH 6 HOME HOME COMPRESSO MEDICAL MEDICAL R EQUIPME EQUIPME PHRM Q0513 YOUR YOUR DISPENSIN 6 PHARMACY PHARMACY [employer] INHALATIO N RX; PER 30 DAYS ADMN SET A7003 YOUR YOUR SM VOL 6 PHARMACY PHARMACY [employer] PNEUMAT NEBULIZR DISPBL ALBUTEROL J7613 YOUR YOUR INHAL 6 PHARMACY PHARMACY [employer] PROD THRU DME U DOSE 1 MG [...] COMPRESSO MEDICAL MEDICAL R EQUIPME EQUIPME RADIOLOGI 63203 J[facility]ON Garcia EXAM 5 [facility] KNEE INC INC COMPLETE 4/MORE VIEWS WALKING L4360 PROGRESSI PROGRESSI BOOT 5 VE VE PNEUMATC PODIATRY PODIATRY &/ [place] [address] [facility] BLOOD/URI 5 [facility] C ACID INC INC RADEX 38087 [facility] FOOT 5 [facility] COMPLETE INC INC MINIMUM 3 VIEWS COMPREHEN 46315 [facility] G[facility] SIVE 5 [facility] METABOLIC INC INC PANEL BLOOD 17486 [facility] G[facility] COUNT 5 [facility] COMPLETE INC INC AUTO&AUTO DIFRNTL WBC SEDIMENTA 41539 [facility] TION RATE 5 MEM HOSP [...] YOUR DISPENSIN 5 PHARMACY PHARMACY G FEE [employer] INHALATIO N RX; PER 30 DAYS ADMN SET A7003 YOUR YOUR SM VOL 5 PHARMACY PHARMACY NONFILTR [employer] PNEUMAT NEBULIZR DISPBL ALBUTEROL J7613 YOUR YOUR INHAL 5 PHARMACY PHARMACY NON-CP [employer] PROD THRU DME U DOSE 1 MG [...] YOUR SM VOL 5 PHARMACY PHARMACY NONFILTR [employer] PNEUMAT NEBULIZR DISPBL ALBUTEROL J7613 YOUR YOUR INHAL 5 PHARMACY PHARMACY NON-CP [employer] PROD THRU DME U DOSE 1 MG CREATINE 46833 [facility] KINASE MB 5 [facility] FRACTION INC INC ONLY COMPREHEN 25555 [facility] SIVE 5 [facility] METABOLIC INC INC PANEL PRESSURIZ 12152 [facility] ED/NONPRE 5 [facility] SSURIZED INC INC INHALATIO N TREATMENT CREATINE 20865 [facility] GOM[facility] KINASE 5 [facility] TOTAL INC INC THER 96015 [facility] PROPH/DX 5 [facility] NJX IV INC INC PUSH SINGLE/1S T SBST/DRUG BLOOD 29985 [facility] COUNT 5 [facility] COMPLETE INC INC AUTO&[place] [address] [facility] TROPONIN 5 [facility] QUANTITAT INC INC KHUSHBU RADIOLOGI 41400 [place] C EXAM 5 MEDICAL OLIVIA CHEST 2 IMAGING VIEWS ASS FRONTAL&L ATERAL THERAPEUT 66058 [facility] IC 5 [facility] INJECTION INC INC IV PUSH EACH NEW DRUG PHARM G0333 YOUR YOUR DISPEN 5 PHARMACY PHARMACY [employer] RX; INITIAL 30-DAY SUPPLY ADMN SET A7003 YOUR YOUR SM VOL 5 PHARMACY PHARMACY NONFILTR [employer] PNEUMAT NEBULIZR DISPBL ALBUTEROL J7613 YOUR YOUR INHAL 5 PHARMACY PHARMACY NON-CP [facility] PROD THRU DME U DOSE 1 MG RADIOLOGI 10722 [facility] ALL C EXAM 5 MEDICAL CHEST 2 IMAGING VIEWS ASS FRONTAL&[place] [address] [facility] ALL ABDOMEN & 5 MEDICAL PELVIS IMAGING [...] EQUIPME W/POS ARWAY PRSS DEVC R RADIOLOGI 71428 [facility] C EXAM 4 MEDICAL REUBEN CHEST [...] W/POS EQUIPME EQUIPME ARWAY PRESSURE DEVICE ECG 27886 TITO FRANCIS ROUTINE 4 LEVAR LEVAR ECG W/LEAST 12 LDS I&R ONLY RADIOLOGI 66970 [facility] C EXAM 4 MEDICAL OLIVIA CHEST 2 IMAGING VIEWS ASS FRONTAL&L ATERAL ECG 96011 ERIC YOUNGER ROUTINE 4 ECG W/LEAST 12 LDS I&R ONLY RADIOLOGI 91401 [place] C EXAM 4 MEDICAL OLIVIA [...] MEDICAL AIRWAY EQUIPME EQUIPME PRESSURE DEVICE RADIOLOGI 66537 [place] C EXAM 3 MEDICAL OLIVIA CHEST 2 IMAGING VIEWS ASS FRONTAL&[place] [address] [facility] G[facility] TROPONIN 3 [facility] QUANTITAT INC INC KHUSHBU BLOOD 02275 [facility] GOMEZ COUNT 3 [facility] COMPLETE INC INC AUTO&AUTO DIFRNTL WBC ECG 57946 [facility] G[facility]Z ROUTINE 3 [facility] ECG INC INC W/LEAST 12 LDS TRCG ONLY W/O I&R THER 52844 [facility] GOMEZ PROPH/DX 3 [facility] NJX IV INC INC PUSH SINGLE/1S T SBST/DRUG IAADI 73851 J[facility] G[facility]Z INFFLUENZ 3 [facility] A A VIRUS INC INC IAADI 52303 J[facility] INFLUENZA 3 [facility] B VIRUS INC INC CREATINE 09512 J[facility]ON GOMEZ KINASE 3 [facility] TOTAL INC INC ECG 75793 LAWANDA SHEA ROUTINE 3 EMERGENCY III MONICA ECG SERVICES W/LEAST 12 LDS I&R ONLY RADIOLOGI 56321 JASON Garcia EXAM 3 [facility] CHEST 2 INC INC VIEWS FRONTAL&L ATERAL CREATINE 99253 [facility] GOMEZ KINASE MB 3 [facility] FRACTION INC INC ONLY PRESSURIZ 25633 [facility] G[facility] ED/NONPRE 3 [facility] SSURIZED INC INC INHALATIO N TREATMENT BASIC 18266 J[facility] GOMEZ METABOLIC 3 [facility] HOS[facility] MEM [...] EQUIPME EQUIPME ARWAY PRESS DEVICE EA MRI 81958 AVERION-M AVERION-M SPINAL 2 AHLOCH AHLOCH CANAL DOMNEICA DOMENICA CERVICAL W/O & W/CONTR MATRL INJECTION A9579 AVERION-M AVERION-M 2 AHLOCH AHLOCH GADOLINIU DOMENICA DOMENICA M BASED MR CONTRAST NOS ML IAADI 48000 [facility] INFFLUENZ 2 [facility] A A VIRUS INC INC IAADI 80855 [facility] G[facility] INFLUENZA 2 [facility] B VIRUS INC INC THERAPEUT 79469 [facility]OME[facility] IC 2 [facility] PROPHYLAC INC INC TIC/DX INJECTION SUBQ/[place] [address] J[facility] GOMEZ STREPTOCO 2 MEM HOS[facility] MEM [...] EQUIPME W/[place] [address] [facility] G[facility] INFUSION 2 [facility] THERAPY/P INC INC ROPHYLAXI S /DX 1ST TO 1 HR THERAPEUT 44239 [facility] G[facility] IC 2 [facility] INJECTION INC INC IV PUSH EACH NEW DRUG RADIOLOGI 83081 [facility] GOMEZ C 2 [facility] EXAMINATI INC INC ON CHEST SINGLE VIEW FRONTAL COMPREHEN 71121 [facility] GOMEZ SIVE 2 [facility] METABOLIC INC INC PANEL PRESSURIZ 39283 [facility] G[facility] ED/NONPRE 2 [facility] SSURIZED INC INC INHALATIO N TREATMENT CREATINE 05901 JASON GOMEZ KINASE MB 2 [facility] FRACTION INC INC ONLY RHYTHM 45963 J[facility]ON GOMEZ ECG 1-3 2 [facility] LEADS INC INC TRACING ONLY W/O I&R ECG 71684 J[facility]ON GOMEZ ROUTINE 2 [facility] ECG INC INC W/LEAST 12 LDS TRCG ONLY W/O I&R CREATINE 31910 J[facility]ON GOMEZ KINASE 2 [facility] TOTAL INC INC BLOOD 15643 J[facility] GOMEZ COUNT 2 [facility] COMPLETE INC INC AUTO&AUTO DIFRNTL WBC CULTURE 48391 J[facility]ON GOMEZ BACTERIAL 2 [facility] BLOOD INC INC AEROBIC W/[place] [address] JASON GOMEZ TROPONIN 2 [facility] QUANTITAT INC INC KHUSHBU NATRIURET 07603 [facility] GOMEZ IC 2 [facility] PEPTIDE INC INC MRI 35065 AVERION-M AVERION-M SPINAL 2 AHLOCH AHLOCH CANAL DOMENICA DOMENICA CERVICAL W/O & W/CONTR MATRL MRI BRAIN 09905 AVERION-M AVERION-M BRAIN 2 AHLOCH AHLOCH STEM W/O DOMENICA DOMENICA W/CONTRAS T MATERIAL INJECTION A9579 AVERION-M AVERION-M 2 AHLOCH AHLOCH GADOLINIU DOMENICA DOMENICA M BASED MR CONTRAST NOS ML MRI 03547 LUTZ TRA LUTZ TRA SPINAL 2 CANAL THORACIC W/CONTRAS T MATRL MRI 21115 [place] T[place]OW SPINAL 2 ROL ROL CANAL THORACIC W/O CONTRAST MATRL RADEX 57986 [facility]ON GOMEZ SPINE 2 MEM HOS[facility] MEM [...] E AIRWAY EQUIPME EQUIPME PRESSURE DEVICE BASIC 65286 JASON GOMEZ METABOLIC 1 [facility] [place] [address] JASON GOMEZ INFUSION 1 [facility] THERAPY/P INC INC ROPHYLAXI S /DX 1ST TO 1 HR THERAPEUT 92228 J[facility]ON GOMEZ IC 1 [facility] INJECTION INC INC IV PUSH EACH NEW DRUG RADIOLOGI 69057 J[facility]ON GOMEZ C EXAM 1 [facility] CHEST 2 INC INC VIEWS FRONTAL&L ATERAL ECG 77564 MCKEMIE MCKEMIE ROUTINE 1 JR MONICA JR MONICA ECG W/LEAST 12 LDS I&R ONLY PRESSURIZ 25756 JASON GOMEZ ED/NONPRE 1 [facility] SSURIZED INC INC INHALATIO N TREATMENT RHYTHM 78579 JASON GOMEZ ECG 1-3 1 [facility]OS[facility] LEADS INC INC TRACING ONLY W/O I&R CREATINE 37880 JASON GOMEZ KINASE MB 1 [facility] FRACTION INC INC ONLY CREATINE 62203 JASON GOMEZ KINASE 1 [facility] TOTAL INC INC ECG 25034 JASON GOMEZ ROUTINE 1 [facility] ECG INC INC W/LEAST 12 LDS TRCG ONLY W/O I&[place] [address] JASON GOMEZ TROPONIN 1 [facility] QUANTITAT INC INC KHUSHBU BLOOD 16308 JASON JASON COUNT 1 [facility] COMPLETE INC INC AUTO&AUTO DIFRNTL WBC CONTINUOU E0601 [place]ACE S 1 E O2 E O2 POSITIVE AIRWAY PRESSURE DEVICE HUMDIFIR E0562 NATA PEACE HEATED 1 E O2 E O2 USED W/POS ARWAY PRESSURE DEVICE BASIC 73376 JASON GOMEZ METABOLIC 1 [facility] PANEL INC INC CALCIUM TOTAL BLOOD 70430 JASON GOMEZ COUNT 1 [facility] COMPLETE INC INC AUTO&[place] [address] JASON GOMEZ TROPONIN 1 [facility] QUANTITAT INC INC KHUSHBU THER 43957 JASON GOMEZ PROPH/DX 1 [facility] NJX IV INC INC PUSH SINGLE/1S T SBST/DRUG CREATINE 06973 [facility] KINASE 1 [facility] TOTAL INC INC ECG [id number] [facility] ROUTINE 1 [facility] ECG INC INC W/LEAST 12 LDS TRCG ONLY W/O I&R CREATINE 78859 JAS[facility] GOMEZ KINASE MB 1 [facility] FRACTION INC INC ONLY PRESSURIZ 16585 JASON GOMEZ ED/NONPRE 1 [facility] SSURIZED INC INC INHALATIO N TREATMENT RADIOLOGI 72983 JASON GOMEZ C EXAM 1 [facility] CHEST 2 INC INC VIEWS FRONTAL&L ATERAL CONTINUOU E0601 [facility] S 1 E O2 E O2 POSITIVE AIRWAY PRESSURE DEVICE HUMDIFIR E0562 [facility] HEATED 1 E O2 E O2 USED W/POS ARWAY PRESSURE DEVICE HUMDIFIR E0562 [place]ATED 1 E O2 E O2 USED W/POS ARWAY PRESSURE DEVICE CONTINUOU E0601 [facility] S 1 E O2 E O2 POSITIVE AIRWAY PRESSURE DEVICE CONTINUOU E0601 [facility] S 1 E O2 E O2 POSITIVE AIRWAY PRESSURE DEVICE HUMDIFIR E0562 [facility] HEATED 1 E O2 E O2 USED W/POS ARWAY PRESSURE DEVICE HUMDIFIR E0562 [facility] HEATED 1 E O2 E O2 USED W/POS ARWAY PRESSURE DEVICE CONTINUOU E0601 [facility] S 1 E O2 E O2 POSITIVE AIRWAY PRESSURE DEVICE CONTINUOU E0601 [facility] S 1 E O2 E O2 POSITIVE AIRWAY PRESSURE DEVICE HUMDIFIR E0562 [facility] HEATED 1 E O2 E O2 USED W/POS ARWAY PRESSURE DEVICE WATR [id number] [facility] 1 E O2 E O2 HUMDIFIR USED W/POS ARWAY PRSS DEVC R CONTINUOU E0601 [facility] S 1 E O2 E O2 POSITIVE AIRWAY PRESSURE DEVICE HUMDIFIR E0562 [facility] HEATED 1 E O2 E O2 USED W/POS ARWAY PRESSURE DEVICE ECG [id number] ALONSO GUPTA ROUTINE 1 SUSHMA SUSHMA ECG W/LEAST 12 LDS I&R ONLY CONTINUOU E0601 [facility] S 1 E O2 E O2 POSITIVE AIRWAY PRESSURE DEVICE HUMDIFIR E0562 [facility] HEATED 1 E O2 E O2 USED W/POS ARWAY PRESSURE DEVICE HUMDIFIR E0562 [facility] HEATED 0 E O2 E O2 USED W/POS ARWAY PRESSURE DEVICE CONTINUOU E0601 [facility] S 0 E O2 E O2 POSITIVE AIRWAY PRESSURE DEVICE CONTINUOU E0601 [facility] S 0 E O2 E O2 POSITIVE AIRWAY PRESSURE DEVICE HUMDIFIR E0562 [facility] HEATED 0 E O2 E O2 USED W/POS ARWAY PRESSURE DEVICE HUMDIFIR E0562 [facility] HEATED 0 E O2 E O2 USED W/POS ARWAY PRESSURE DEVICE CONTINUOU E0601 [facility] S 0 E O2 E O2 POSITIVE AIRWAY PRESSURE DEVICE CONTINUOU E0601 [facility] S 0 E O2 E O2 POSITIVE AIRWAY PRESSURE DEVICE HUMDIFIR E0562 [facility] HEATED 0 E O2 E O2 USED W/POS ARWAY PRESSURE DEVICE POLYSOM [id number] [place] MOLD[place] 6/>YRS 0 U BOG U BOG SLEEP W/CPAP 4/> ADDL DILCIA ATTND RADIOLOGI 30925 [facility] C EXAM 0 Y OF Y OF CHEST 2 [facility] VIEWS E HOS E HOS FRONTAL&L ATERAL RADIOLOGI 36270 [facility] C EXAM 0 TL L TL L CHEST 2 VIEWS FRONTAL&L ATERAL THER 65678 [facility] PROPH/DX 0 Y OF Y OF NJX IV [facility] PUSH E E SINGLE/[address] [place] [address] HOSPITAL T SBST/DRUG RADIOLOGI 53735 [facility] VALDIVIA C 0 IVANA G IVANA G EXAMINATI ON CHEST SINGLE VIEW FRONTAL DETER 52548 DERICK CAMPBELL RESIST TO 0 AIRFLO OSCILLATO RY/PLETHY SMOGRAP THRC GAS 46341 DERICK CAMPBELL VOL 0 CARBON 73522 DERICK CAMPBELL MONOXIDE 0 DIFFW/CAP PULMONARY 06049 DERICK CAMPBELL STRESS 0 TESTING SIMPLE CV STRS 37851 RYLAN FAGAN, TST 0 MARY Sanchez XERS&/OR RX CONT ECG I&R ONLY MYOCARDIA 01824 RYLAN FAGAN L SPECT 0 MARY [facility] MULTIPLE STUDIES RADIOLOGI 73649 VYLETA VJAEL, C EXAM 0 XIOMARA SOLANO S CHEST 2 VIEWS FRONTAL&L ATERAL RADIOLOGI 19460 U OF L U OF L C EXAM 9 (P1017) (P1017) CHEST 2 UNIV UNIV VIEWS RADIOL RADIOL FRONTAL&L ASSOC ASSOC ATERAL RADIOLOGI 11667 U OF L U OF L C EXAM 9 (P1017) (P1017) CHEST 2 UNIV UNIV VIEWS RADIOL RADIOL FRONTAL&L ASSOC ASSOC ATERAL RADEX 39157 U OF L U OF L ANKLE 9 (P1017) (P1017) COMPLETE UNIV UNIV MINIMUM 3 RADIOL RADIOL VIEWS ASSOC ASSOC RESP ASST E0470 [facility] DEV 9 E 02 E 02 BI-LEVL PRSS CAPABILIT Y W/O BACKU HUMDIFIR E0562 [facility] HEATED 9 E 02 E 02 USED W/POS ARWAY PRESSURE DEVICE RADIOLOGI 24724 U OF L U OF L C EXAM 9 (P1017) (P1017) CHEST 2 UNIV UNIV VIEWS RADIOL RADIOL FRONTAL&L ASSOC ASSOC ATERAL HUMDIFIR E0562 [facility] HEATED 9 E 02 E 02 USED W/POS ARWAY PRESSURE DEVICE RESP ASST E0470 [facility] DEV 9 E 02 E 02 BI-LEVL PRSS CAPABILIT Y W/O BACKU HUMDIFIR E0562 [facility] HEATED 8 E 02 E 02 USED W/POS ARWAY PRESSURE DEVICE RESP ASST E0470 [facility] DEV 8 E 02 E 02 BI-LEVL PRSS CAPABILIT Y W/O BACKU NEBULIZER E0570 [facility], WITH 8 INC INC COMPRESSO R O2 CONC 1 E1390 [facility], [place] 8 INC INC 85%/>02 [facility] FLW [facility]ATE POLYSOM 88585 [place] MOLD[place] 6/>YRS 8 U, FINN U, FINN SLEEP W/CPAP 4/> ADDL DILCIA ATTND INITIAL 07162 [facility] 8 JR, SONY JR, SONY CARE/DAY R R 70 MINUTES RADIOLOGI 01342 U OF L U OF L C EXAM 8 (P1017) (P1017) CHEST 2 UNIV UNIV VIEWS RADIOL RADIOL FRONTAL&L ASSOC ASSOC ATERAL O2 CONC 1 E1390 [facility] [place] 8 INC INC 85%/>02 CONC AT [facility] FLW RATE NEBULIZER E0570 [facility], WITH 8 INC INC COMPRESSO R O2 CONC 1 E1390 [facility], [place] 8 INC INC 85%/>02 CONC AT PR[facility] FLW RATE NEBULIZER E0570 [facility] WITH 8 INC INC COMPRESSO R O2 CONC 1 E1390 [facility] [place] 8 INC INC 85%/>02 CONC AT [facility] FLW RATE NEBULIZER E0570 [facility], WITH 8 INC INC COMPRESSO R O2 CONC 1 E1390 [facility], [place] 8 INC INC 85%/>02 CONC AT PRSC FLW RATE POLYSOM 71048 UNIVERSIT UNIVERSIT 6/>YRS 8 Y OF Y OF SLEEP 4/> [facility] ATTND NEBULIZER E0570 [facility], WITH 8 INC INC COMPRESSO R O2 CONC 1 E1390 [facility], [place] 8 INC INC 85%/>02 CONC AT PRSC FLW RATE NEBULIZER E0570 [facility], WITH 8 INC INC COMPRESSO R NEBULIZER E0570 [facility], WITH 8 INC INC COMPRESSO R NEBULIZER E0570 [facility], WITH 8 INC INC COMPRESSO R ADMN SET [id number] [facility], W/SM VOL 8 INC INC NONFILTR NEBULIZR NON-DISPB L RADIOLOGI 02425 KING VALDIVIA, C EXAM 8 IVANA G IVANA G CHEST 2 VIEWS FRONTAL&L ATERAL Encounters Encounter Start End Date Code Location Performer Type Date OFFICE 32128 ALLERGY BAE OUTPATIEN 7 7 PARTNERS T VISIT OF [facility]AH[facility] 40 CO MINUTES EMERGENCY 53159 [facility] 7 7 [facility] T VISIT LOW/MODER SEVERITY [facility]OSPITAL [facility] - 7 7 [facility] INC T EMERGENCY 61006 ALEXANDRE FRANCIS 7 7 PHYSICIAN DEPARTMEN S, [facility] T VISIT HIGH/URGE NT SEVERITY EMERGENCY 80055 [facility] 7 7 [facility] SE[facility] - 7 7 [facility] T OFFICE 76012 Vonda [facility] 7 7 RADHA LANDAVERDE T VISIT [facility] 15 MINUTES EMERGENCY 97088 [facility] 7 7 [facility] T VISIT HIGH/URGE NT SEVERITY HOSPITAL JASON - 7 7 [facility] OUTPAT[facility]EN [facility] T EMERGENCY 70472 JASON 6 6 [facility] HIGH/URGE NT SEVERITY [facility]OSPITAL J[facility]ON - 6 6 [facility]EN [facility] JASON - 5 5 [facility] OUTPATIEN [facility] T EMERGENCY 80399 JASON 5 5 [facility] LOW/MODER SEVERITY [facility]OSP[facility] JASON - 5 5 [facility] OUTPAT[facility]EN [facility] T HOSPITAL JASON - 5 5 [facility] OUTPATIEN [facility] T EMERGENCY 10730 JASON 5 5 [facility] T VISIT MODERATE SEVERITY EMERGENCY 04311 LAWANDA FRANCIS 3 3 [facility] VISIT MODERATE SEVERITY EMERGENCY 36744 JASON 3 3 [facility] VISIT MODERATE SEVERITY EMERGENCY 75471 LAWANDA SHEA DEPT 3 3 EMERGENCY III [facility] VISIT SERVICES HIGH SEVERITY& THREAT [facility] JASON - 3 3 [facility] OUTPATIEN INC T EMERGENCY 81732 JASON 2 [address] [facility] T VISIT MODERATE SEVERITY HOSPITAL JASON - 2 2 [facility] OUTPATIEN [facility] EMERGENCY 61386 HINABLAYNE SANTAMARIAANGIE 2 2 III MONICA III [facility] T VISIT HIGH/URGE NT SEVERITY EMERGENCY 52470 JASON 2 [address] [facility] T VISIT HIGH/URGE NT SEVERITY HOSPITAL JASON - 2 2 [facility] 76539 BOB ESCALANTE [facility] 2 2 T VISIT 10 MINUTES OFFICE 42387 [facility] 2 2 WENDY WENDY NEW 45 MINUTES HOSPITAL JASON - 2 2 [facility] JASON - 1 1 [facility] 78336 JASON 1 [address] [facility] T VISIT HIGH/URGE NT SEVERITY EMERGENCY 23095 JASON 1 [address] [facility] T VISIT HIGH/URGE NT SEVERITY HOSPITAL JASON - 1 1 [facility] UNIVERSIT - 0 0 Y [facility] UNIVERSIT - 0 0 Y OF [place]PATIEN [place] [facility] EMERGENCY 33298 Royal LUNA D 0 0 [facility] T VISIT HIGH/URGE NT SEVERITY HOSPITAL UNIVERSIT - 0 0 Y [facility] OFFICE 75493 [facility] JR, SONY JR, SONY T VISIT R R 15 MINUTES EMERGENCY 32038 EVGENY PEPPER 9 9 MD REUBEN ALEXIS MD [facility] T VISIT HIGH/URGE NT SEVERITY EMERGENCY 74138 UNIVERSIT 9 9 Y OF [facility] VISIT E LOW/MODER HOSPITAL SEVERITY EMERGENCY 35514 SANDI JUNIOR, 9 9 LIYA Guerra [facility] VISIT MODERATE SEVERITY HOSPITAL UN[facility]ERSIT - 9 9 [facility] 01512 JARON SALMERON, 9 9 S J Neville Rome [facility] VISIT HIGH/URGE NT SEVERITY OFFICE 77490 MOLDOVEAN MOLDOVEAN [facility] 9 9 U, FINN U, FINN Smith [facility] 30 MINUTES [facility] UNIVERSIT - 8 8 [facility] 8 8 Y OF [facility]
--- OUTSIDE RECORDS SUMMARY | 2017-04-09 16:59 | External Medical Summary Rpt | CCD ---
Demographics Preferred Language Vietnamese Marital Status Unknown Faith Affiliation Unknown Race Unknown Ethnic Group Unknown Author Author , SAMIR DAWSON Address Unknown Phone Immunization Unable to retrieve immunization data due to connection failure with Immunization Registry. Please try again later.
--- OUTSIDE RECORDS SUMMARY | 2017-04-09 16:59 | External Medical Summary Rpt ---
Author Author SAMIR Helms, [employer] Organization [employer] Address Unknown Phone Unavailable Results CBC W Auto Differential panel in Blood Observa Value Referen Units Interpr Notes Date tion ce etation Range Basophils 0 - 0.2 K/MM3 Normal No Apr 09 informati 2016 7:55 [#/volume on in AM ] in source Blood by data Automated count Basophils 0.1 - 2.0 % Normal No Apr 09 informati 2016 7:55 leukocyte on in AM s in source Blood by data Automated count Eosinophi 0.0 - 0.4 K/mm3 High No Apr 09 ls informati 2016 7:55 [#/volume on in AM ] in source Blood by data Automated count Eosinophi 0.1 - % Normal No Apr 09 ls/100 12.0 informati 2016 7:55 leukocyte on in AM s in source Blood by data Automated count Granulocy 1.3 - 8.0 K/mm3 Normal No Apr 09 viviana informati 2016 7:55 [#/volume on in AM ] in source Blood by data Automated count Granulocy 37.0 - % Normal No Apr 09 viviana/100 80.0 informati 2016 7:55 leukocyte on in AM s in source Blood by data Automated count Hematocri 42.0 - % Normal No Apr 09 t [Volume 52.0 informati 2016 7:55 on in AM Fraction] source of Blood data Hemoglobi 14.1 - g/dL Normal No Apr 09 n 18.0 informati 2016 7:55 [Mass/vol on in AM ume] in source Blood data Lymphocyt 0.7 - 4.5 K/mm3 Normal No Apr 09 es informati 2016 7:55 [#/volume on in AM ] in source Unspecifi data ed specimen by Automated count Lymphocyt 10 - 50 % Normal No Apr 09 es informati 2016 7:55 [#/volume on in AM ] in source Unspecifi data ed specimen by Automated count Erythrocy 27 - 31.2 pg Normal No Apr 09 te mean informati 2016 7:55 corpuscul on in AM ar source hemoglobi data n [Entitic mass] Erythrocy 31.8 - g/dl Normal No Apr 09 te mean 35.4 informati 2016 7:55 corpuscul on in AM ar source hemoglobi data n concentra tion [Mass/vol ume] by Automated count Erythrocy 82.2 - fl Normal No Apr 09 te mean 97.8 informati 2016 7:55 corpuscul on in AM ar volume source [Entitic data volume] by Automated count Monocytes 0.1 - 1.0 K/mm3 Normal No Apr 09 informati 2016 7:55 [#/volume on in AM ] in source Blood by data Automated count Monocytes 1.7 - 9.3 % Normal No Apr 09 /100 informati 2016 7:55 leukocyte on in AM s in source Blood by data Automated count Platelet 7.4 - fl Normal No Apr 09 mean 10.4 informati 2016 7:55 volume on in AM [Entitic source volume] data in Blood by Automated count Platelets 142 - 424 K/mm3 Normal No Apr 09 informati 2016 7:55 [#/volume on in AM ] in source Blood data Erythrocy 4.6 - 6.2 M/mm3 Normal No Apr 09 viviana informati 2016 7:55 [#/volume on in AM ] in source Amniotic data fluid Erythrocy 11.5 - % Normal No Apr 09 te 17.5 informati 2016 7:55 distribut on in AM ion width source [Entitic data volume] by Automated count Leukocyte 4.8 - K/MM3 Normal No Apr 09 s 10.8 informati 2016 7:55 [#/volume on in AM ] in source Blood data MISCELLANEOUS TEST Observa Value Referen Units Interpr Notes Date tion ce etation Range [facility] MISC TEST ALPHA GAL PANEL 634044 AND CU INDEX [id number] SEE SEPARATE REPORT FOR NORMAL VALUES AND/OR INTERPRETATION SEE SEPARATE REPORT FOR NORMAL VALUES AND/OR INTERPRETATION Comprehensive metabolic 2000 panel in Serum or Plasma Observa Value Referen Units Interpr Notes Date tion ce etation Range Albumin/G 1.1 - 1.8 No Normal No Mar 22 lobulin informati informati 2016 [Mass on in on in 10:43 AM ratio] in source source Serum or data data Plasma Albumin 3.4 - 5.0 gm/dL Normal No Mar 22 [Mass/vol informati 2017 ume] in on in 10:43 AM Serum or source Plasma data Alkaline 46 - 116 U/L Normal No Mar 9 phosphata informati 2017 se on in 10:43 AM [Enzymati source c data activity/ volume] in Serum or Plasma Bilirubin 0.2 - 1.0 mg/dL Normal No Mar 9 .total informati 2016 [Mass/vol on in 10:43 AM ume] in source Serum or data Plasma Urea 7 - 18 mg/dL Normal No Mar 9 nitrogen informati 2017 [Mass/vol on in 10:43 AM ume] in source Serum or data Plasma Calcium 8.5 - mg/dL Normal No Mar 9 [Mass/vol 10.1 informati 2016 ume] in on in 10:43 AM Serum or source Plasma data Chloride 98 - 107 mmoL/L Normal No Mar 9 [Moles/vo informati 2016 lume] in on in 10:43 AM Serum or source Plasma data Carbon 21.0 - mmoL/L Normal No Mar 9 dioxide, 32.0 informati 2017 total on in 10:43 AM [Moles/vo source lume] in data Serum or Plasma Creatinin 0.70 - mg/dL Normal No Mar 9 e 1.30 informati 2016 [Mass/vol on in 10:43 AM ume] in source Serum or data Plasma Estimated >60 ML/MIN No REFERENCE Mar 9 informati RANGE: 2017 glomerula on in >60 10:43 AM r source ML/MIN/1. filtratio data 73 SQUARE n rate METERSIf (GF this patient is -A merican, then multiply theresult by 1.210. Globulin 1.3 - 3.2 gm/dL Normal No Mar 9 [Mass/vol informati 2017 ume] in on in 10:43 AM Serum source data Glucose 74 - 106 mg/dL Normal No Mar 9 [Mass/vol informati 2017 ume] in on in 10:43 AM Serum or source Plasma data Potassium 3.5 - 5.1 mmoL/L Normal No Mar 9 informati 2016 [Moles/vo on in 10:43 AM lume] in source Serum or data Plasma Sodium 136 - 145 mmoL/L Normal No Oct 9 [Moles/vo informati 2017 lume] in on in 10:43 AM Serum or source Plasma data Aspartate 15 - 37 U/L Low No Mar 9 informati 2017 aminotran on in 10:43 AM sferase source [Enzymati data c activity/ volume] in Serum or Plasma Alanine 12 - 78 U/L Normal No Mar 22 aminotran 2016 sferase on in 10:43 AM [Enzymati source c data activity/ volume] in Serum or Plasma Protein 6.4 - 8.2 gm/dL Normal No Mar 22 [Mass/vol informati 2016 ume] in on in 10:43 AM Serum or source Plasma data Thyroxine (T4) free [Mass/volume] in Serum or Plasma Observa Value Referen Units Interpr Notes Date tion ce etation Range Thyroxine 0.76 - ng/dL Normal No Mar 22 (T4) 1.46 2016 free on in 10:43 AM [Mass/vol source ume] in data Serum or Plasma Thyrotropin [Units/volume] in Serum or Plasma Observa Value Referen Units Interpr Notes Date ti ce etation Range Thyrotrop 0.358 - uIU/ml Normal No Mar 22 in 3.740 2016 [Units/vo on in 10:43 AM lume] in source Serum or data Plasma CBC W Auto Differential panel in Blood Observa Value Referen Units Interpr Notes Date tion ce etation Range Basophils 0 - 0.2 K/MM3 Normal No Mar 222016 [#/volume on in 10:43 AM ] in source Blood by data Automated count Basophils 0.1 - 2.0 % Normal No Mar 222016 leukocyte on in 10:43 AM s in source Blood by data Automated count Eosinophi 0.0 - 0.4 K/mm3 High No Mar 22 ls 2016 [#/volume on in 10:43 AM ] in source Blood by data Automated count Eosinophi 0.1 - % Normal No Mar 22 ls/100 12.0 2016 leukocyte on in 10:43 AM s in source Blood by data Automated count Granulocy 1.3 - 8.0 K/mm3 Normal No Mar 22 viviana 2016 [#/volume on in 10:43 AM ] in source Blood by data Automated count Granulocy 37.0 - % Normal No Mar 22 viviana/100 80.0 2016 leukocyte on in 10:43 AM s in source Blood by data Automated count Hematocri 42.0 - % Normal No Mar 22 t [Volume 52.0 2016 on in 10:43 AM Fraction] source of Blood data Hemoglobi 14.1 - g/dL Normal No Mar 22 n 18.0 inform2016 [Mass/vol on in 10:43 AM ume] in source Blood data Lymphocyt 0.7 - 4.5 K/mm3 Normal No Mar 22 es inform2016 [#/volume on in 10:43 AM ] in source Unspecifi data ed specimen by Automated count Lymphocyt 10 - 50 % Normal No Mar 22 es inform2016 [#/volume on in 10:43 AM ] in source Unspecifi data ed specimen by Automated count Erythrocy 27 - 31.2 pg Normal No Mar 22 te mean inform2016 corpuscul on in 10:43 AM ar source hemoglobi data n [Entitic mass] Erythrocy 31.8 - g/dl Low No Mar 22 te mean 35.4 inform2016 corpuscul on in 10:43 AM ar source hemoglobi data n concentra tion [Mass/vol ume] by Automated count Erythrocy 82.2 - fl Normal No Mar 22 te mean 97.8 inform2016 corpuscul on in 10:43 AM ar volume source [Entitic data volume] by Automated count Monocytes 0.1 - 1.0 K/mm3 Normal No Mar 222016 [#/volume on in 10:43 AM ] in source Blood by data Automated count Monocytes 1.7 - 9.3 % Normal No Mar 22 /100 2017 leukocyte on in 10:43 AM s in source Blood by data Automated count Platelet 7.4 - fl Normal No Mar 22 mean 10.4 inform2016 volume on in 10:43 AM [Entitic source volume] data in Blood by Automated count Platelets 142 - 424 K/mm3 Normal No Mar 222016 [#/volume on in 10:43 AM ] in source Blood data Erythrocy 4.6 - 6.2 M/mm3 Normal No Mar 22 viviana informati 2016 [#/volume on in 10:43 AM ] in source Amniotic data fluid Erythrocy 11.5 - % Normal No Mar 22 te 17.5 inform2016 distribut on in 10:43 AM ion width source [Entitic data volume] by Automated count Leukocyte 4.8 - K/MM3 Normal No Mar 22 s 10.8 informati 2016 [#/volume on in 10:43 AM ] in source Blood data
--- OUTSIDE RECORDS SUMMARY | 2017-04-09 16:59 | External Medical Summary Rpt ---
[...] Range [facility] MISC TEST ALPHA GAL PANEL [id number] AND CU INDEX [id number] SEE SEPARATE REPORT FOR NORMAL VALUES AND/OR [...]
--- OUTSIDE RECORDS SUMMARY | 2017-04-09 16:59 | External Medical Summary Rpt | CCD ---
Demographics Preferred Language Arabic Marital Status Unknown Hoahaoism Affiliation Unknown Race Unknown Ethnic Group Unknown Author Author , SAMIR DAWSON Address Unknown Phone Immunization Unable to retrieve immunization data due to connection failure with Immunization Registry. Please try again later.
== END 2017-04-09 10:09 | disposition home or self-care (01) ==
LOC: ER 07:53
PROVIDERS: General Practice
DX: J45.21 Mild intermittent asthma with (acute) exacerbation (principal); E11.9 Type 2 diabetes mellitus without complications; I10 Essential (primary) hypertension; F17.210 Nicotine dependence, cigarettes, uncomplicated

== ENCOUNTER 2017-05-11 20:21 | Emergency (ER) | payer MEDICARE, MEDICAID ==
[~2017-05-11] VITALS: Ht 154.9 cm; Wt 133.4 kg
[~2017-05-11 20:21] MED LIST changes: +AVELOX400 MG PO; +PREDNISONE 5MG.5 MG PO
[2017-05-11 20:35] LABS: HEMOGLOBIN 16.5 g/dL (14.1-18.0); LYMPH # 3.4 K/mm3 (0.7-4.5); LYMPH % 35.8 % (10-50)
--- NOTE | 2017-05-11 21:00 | Emergency Room Report ---
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 N Clinical Suspician of Infection? N Mental Status: 1 - Regular (Normal Baseline) Sepsis Risk:Low Sepsis Risk Have you (or family members/close friends) recently traveled outside the [place]? N If Yes, where/when: Have you had exposure to infectious disease within the past month? N TB? Other? Specify: Source patient, RN notes reviewed, EMS, old records Exam Limitations no limitations Comment pt with feeling of palpatation during the day w/o fever or excessive stimulants and no overuse of inhalers and no syncope or chest pain Cardiac Chest Pain Chest pain indicative of cardiac No Timing/Duration this evening Severity moderate ALLERGIES Coded Allergies: Penicillins (I-HIVES 07/29/16) Home Medications Active Scripts IPRATROPIUM/ALBUTEROL SULFATE (Iprat-Albut 0.5-3(2.5) MG/3 Ml) 3 ML IH QIDP PRN wheezing, sob #30 AMP Prov: 07/28/16 Reported Medications ALBUTEROL (Albuterol 0.083% Neb) 2.5 MG IN QIDP Tiotropium [place] (Spiriva) 18 MCG IH DAILY Montelukast Sodium (Singulair) 10 MG PO QAM ALBUTEROL (Ventolin Hfa) 1 PUFF IH Q6H6 PRN SHORTNESS OF BREATH BUDESONIDE/FORMOTEROL FUMARATE (Symbicort 160-4.5 Mcg Inhaler) 1 PUFF IH BID LINAGLIPTIN/METFORMIN HCL (Jentadueto 2.5 MG-1000 MG Tab) 1 TAB PO BID #60 Amlodipine Besylate (Amlodipine) 5 MG PO DAILY #90 History Medical History General CAD? No Angina: No MN: No Hypertension? Yes Hyperlipidemia? No CHF? No DVT? No PE? No COPD? Yes Asthma? Yes Anemia? No GERD? No Gastric ulcers? No GI Bleed? No Hernia? No Thyroid Problems? No Hypothyroidism? No CVA? No Seizures? No Diabetes? Yes Insulin Dependent: No Insulin Pump: No Home FSBS? Yes Renal Insuffiency? No End Stage Renal Disease? No UTI? No Stones? No BPH? No GB Disease: No Nephritic Syndrome? No Asplenia? No Hepatitis? No Sickle Cell Disease? No Arthritis? No Migraines? No Cataracts? No Glaucoma? No MRSA? No HIV? No TB? No Anxiety? No Depression? No Cancer? No More? No Immunization Hx DT/Tetanus > 10 YRS Surgical Hx Previous Surgery?Y CIRCUMCISION Social History Smoking Hx Smoker: Current Every Day Smoker Tobacco: Yes Type Cigarettes Packs/day < 1 Pack Alcohol Alcohol: Yes Drugs none Review of Systems All Other Systems Reviewed and Negative Constitutional denies fever Eyes denies drainage ENT denies: nose pain, epistaxis, throat pain. Respiratory denies cough, denies shortness of breath, denies wheezing Cardiovascular see HPI, denies chest pain, palpitations, denies syncope Gastrointestinal denies abdominal pain, denies diarrhea, denies vomiting Genitourinary denies: dysuria, frequency, hesitancy, hematuria. Musculoskeletal denies back pain, denies joint pain, denies joint swelling, denies neck pain Skin denies rash Psychiatric/Neurological denies seizure Physical Exam Vital Signs Vital Signs Date Time Temp Pulse Resp B/P Pulse O2 O2 Flow FiO2 Ox Delivery Rate 05/11 2022 98.1 84 20 93/53 98 - WBC >12,000 or <4,000 or 10% bands? 2 or more SIRS Criteria Met? B/P:/ MAP:66 Creatinine >2.0? UA output<0.5ml/kg/hr for 2 hrs? Platelet count >100,000? Lactate >2.0mmol/1? INR >1.2 or PTT > than 60 sec? Evidence of Organ Dysfunction? Provider documented clinical suspician of infection? N Sepsis Criteria Count: 1 Sepsis Risk: Low Sepsis Risk General Appearance no apparent distress Eye Exam - bilateral eye PERRL, bilateral eye EOMI Ear, Nose, Throat normal ENT inspection Neck supple Respiratory Status No: respiratory distress. Lung Sounds bilateral: lungs clear. 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 No Results/Orders Laboratory Tests 05/11/172014: TSH 5.77 H, Thyroxine (T4) 7.4 05/11/172014: Sodium 142, Potassium 4.1, Chloride 103, Carbon Dioxide 30, BUN 13, Creatinine 1.0, Estimated Creat Clear 174, Estimated GFR (MDRD) 80, Glucose 87, Calcium 9.7 , Total Bilirubin 1.0, AST 20, ALT 34, Alkaline Phosphatase 70, Creatine Kinase 273, CK-MB (CK-2) Rel Index 0.5, CK and CKMB Interp 1.3, Troponin I < 0.02, Total Protein 7.6, Albumin 4.1, Globulin 3.5 H, Albumin/Globulin Ratio 1.2, WBC 9.5, RBC 5.57, Hgb 16.5, Hct 49.9, MCV 89.5, RDW 13.0, Plt Count 273, MPV 8.4, Gran % 51.5, Gran # 4.9, Lymphocytes % 35.8, Monocytes % 5.2, Eosinophils % 6.9, Basophils % 0.6, Lymphocytes # 3.4, Monocytes # 0.5, Eosinophils # 0.7 H, Basophils # 0.1, PUBS MCHC 33.1, MCH 29.7 Current Medication Orders Sig/Bethany Start time Last Medication Dose Route Stop Time Status Admin Sodium Chloride 10 ML PRN PRN 05/11 2030 AC IV 05/12 2029 Orders Procedure Date/time Status HOLTER MONITOR REQUEST 05/11 2122 Active THYROID STIMULATING HORMONE 05/11 2100 Complete THYROXINE (T4) 05/11 2100 Complete ELECTROCARDIOGRAM REQUEST 05/11 2029 Active CHEST(2 VIEWS-NOT PORTABLE) 05/11 2029 Active IV SALINE LOCK 05/11 2029 Active SAMPLE DISTRIBUTOR 05/11 2029 Active CBC WITH AUTO DIFF 05/11 2029 Complete CARDIAC ENZYMES 05/11 2029 Complete CHEM 12 PROFILE 05/11 2029 Complete 12 LEAD EKG-WANDY (INITIAL) 05/11 UNK Active CM/EKG CM/blast setter Rhythm Normal Sinus Rhythm EKG no evid. of ischemic chgs XRAY/CT/US XRAY/CT/US XRAY chest XR interpretation by reviewed by me Xray Results normal/NAD Departure Departure Time of Disposition 2125 Disposition DC Home or Self Care(routine) Clinical Impression Primary Impression: Heart palpitations Condition STABLE Referrals Tom Whelan MD (Family) Patient Instructions DI for Palpitations Additional Instructions call pcp for follow up Discharge Counseling Counseled pt/family regarding diagnosis, test results, follow up needs ED Critical Care Critical Care No at 2138
--- NOTE | 2017-05-11 21:00 | Emergency Room Report ---
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 N Clinical Suspician of Infection? N Mental Status: 1 - Regular (Normal Baseline) Sepsis Risk:Low Sepsis Risk Have you (or family members/close friends) recently traveled outside the [place]? N If Yes, where/when: Have you had exposure to infectious disease within the past month? N TB? Other? Specify: Source patient, RN notes reviewed, EMS, old records Exam Limitations no limitations Comment pt with feeling of palpatation during the day w/o fever or excessive stimulants and no overuse of inhalers and no syncope or chest pain Cardiac Chest Pain Chest pain indicative of cardiac No Timing/Duration this evening Severity moderate ALLERGIES Coded Allergies: Penicillins (I-HIVES 07/29/16) Home Medications Active Scripts IPRATROPIUM/ALBUTEROL SULFATE (Iprat-Albut 0.5-3(2.5) MG/3 Ml) 3 ML IH QIDP PRN wheezing, sob #30 AMP Prov: 07/28/16 Reported Medications ALBUTEROL (Albuterol 0.083% Neb) 2.5 MG IN QIDP Tiotropium [place] (Spiriva) 18 MCG IH DAILY Montelukast Sodium (Singulair) 10 MG PO QAM ALBUTEROL (Ventolin Hfa) 1 PUFF IH Q6H6 PRN SHORTNESS OF BREATH BUDESONIDE/FORMOTEROL FUMARATE (Symbicort 160-4.5 Mcg Inhaler) 1 PUFF IH BID LINAGLIPTIN/METFORMIN HCL (Jentadueto 2.5 MG-1000 MG Tab) 1 TAB PO BID #60 Amlodipine Besylate (Amlodipine) 5 MG PO DAILY #90 History Medical History General CAD? No Angina: No NE: No Hypertension? Yes Hyperlipidemia? No CHF? No DVT? No PE? No COPD? Yes Asthma? Yes Anemia? No GERD? No Gastric ulcers? No GI Bleed? No Hernia? No Thyroid Problems? No Hypothyroidism? No CVA? No Seizures? No Diabetes? Yes Insulin Dependent: No Insulin Pump: No Home FSBS? Yes Renal Insuffiency? No End Stage Renal Disease? No UTI? No Stones? No BPH? No GB Disease: No Nephritic Syndrome? No Asplenia? No Hepatitis? No Sickle Cell Disease? No Arthritis? No Migraines? No Cataracts? No Glaucoma? No MRSA? No HIV? No TB? No Anxiety? No Depression? No Cancer? No More? No Immunization Hx DT/Tetanus > 10 YRS Surgical Hx Previous Surgery?Y CIRCUMCISION Social History Smoking Hx Smoker: Current Every Day Smoker Tobacco: Yes Type Cigarettes Packs/day < 1 Pack Alcohol Alcohol: Yes Drugs none Review of Systems All Other Systems Reviewed and Negative Constitutional denies fever Eyes denies drainage ENT denies: nose pain, epistaxis, throat pain. Respiratory denies cough, denies shortness of breath, denies wheezing Cardiovascular see HPI, denies chest pain, palpitations, denies syncope Gastrointestinal denies abdominal pain, denies diarrhea, denies vomiting Genitourinary denies: dysuria, frequency, hesitancy, hematuria. Musculoskeletal denies back pain, denies joint pain, denies joint swelling, denies neck pain Skin denies rash Psychiatric/Neurological denies seizure Physical Exam Vital Signs Vital Signs Date Time Temp Pulse Resp B/P Pulse O2 O2 Flow FiO2 Ox Delivery Rate 05/11 2022 98.1 84 20 93/53 98 - WBC >12,000 or <4,000 or 10% bands? 2 or more SIRS Criteria Met? B/P:/ MAP:66 Creatinine >2.0? UA output<0.5ml/kg/hr for 2 hrs? Platelet count >100,000? Lactate >2.0mmol/1? INR >1.2 or PTT > than 60 sec? Evidence of Organ Dysfunction? Provider documented clinical suspician of infection? N Sepsis Criteria Count: 1 Sepsis Risk: Low Sepsis Risk General Appearance no apparent distress Eye Exam - bilateral eye PERRL, bilateral eye EOMI Ear, Nose, Throat normal ENT inspection Neck supple Respiratory Status No: respiratory distress. Lung Sounds bilateral: lungs clear. 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 No Results/Orders Laboratory Tests 05/11/172014: TSH 5.77 H, Thyroxine (T4) 7.4 05/11/172014: Sodium 142, Potassium 4.1, Chloride 103, Carbon Dioxide 30, BUN 13, Creatinine 1.0, Estimated Creat Clear 174, Estimated GFR (MDRD) 80, Glucose 87, Calcium 9.7 , Total Bilirubin 1.0, AST 20, ALT 34, Alkaline Phosphatase 70, Creatine Kinase 273, CK-MB (CK-2) Rel Index 0.5, CK and CKMB Interp 1.3, Troponin I < 0.02, Total Protein 7.6, Albumin 4.1, Globulin 3.5 H, Albumin/Globulin Ratio 1.2, WBC 9.5, RBC 5.57, Hgb 16.5, Hct 49.9, MCV 89.5, RDW 13.0, Plt Count 273, MPV 8.4, Gran % 51.5, Gran # 4.9, Lymphocytes % 35.8, Monocytes % 5.2, Eosinophils % 6.9, Basophils % 0.6, Lymphocytes # 3.4, Monocytes # 0.5, Eosinophils # 0.7 H, Basophils # 0.1, PUBS MCHC 33.1, MCH 29.7 Current Medication Orders Sig/Bethany Start time Last Medication Dose Route Stop Time Status Admin Sodium Chloride 10 ML PRN PRN 05/11 2030 AC IV 05/12 2029 Orders Procedure Date/time Status HOLTER MONITOR REQUEST 05/11 2122 Active THYROID STIMULATING HORMONE 05/11 2100 Complete THYROXINE (T4) 05/11 2100 Complete ELECTROCARDIOGRAM REQUEST 05/11 2029 Active CHEST(2 VIEWS-NOT PORTABLE) 05/11 2029 Active IV SALINE LOCK 05/11 2029 Active LAY BROTHER 05/11 2029 Active CBC WITH AUTO DIFF 05/11 2029 Complete CARDIAC ENZYMES 05/11 2029 Complete CHEM 12 PROFILE 05/11 2029 Complete 12 LEAD EKG-WANDY (INITIAL) 05/11 UNK Active CM/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 of ischemic chgs XRAY/CT/US XRAY/CT/US XRAY chest XR interpretation by reviewed by me Xray Results normal/NAD Departure Departure Time of Disposition 2125 Disposition DC Home or Self Care(routine) Clinical Impression Primary Impression: Heart palpitations Condition STABLE Referrals Tom Whelan MD (Family) Patient Instructions DI for Palpitations Additional Instructions call pcp for follow up Discharge Counseling Counseled pt/family regarding diagnosis, test results, follow up needs ED Critical Care Critical Care No at 2138
[2017-05-11 21:02] LABS: BUN 13 mg/dL (7-18)
[2017-05-11 21:03] LABS: GFR (ESTIMATED) 80 ML/MIN (>60)
--- OUTSIDE RECORDS SUMMARY | 2017-05-11 21:09 | External Medical Summary Rpt | Continuity of Care Document ---
Author Author Organization Address Unknown Phone Unavailable Care Team Providers Care Document Coordinator Name Role Phone , Unavailable Unavailable EMS Current Medications Section EMS Allergies and Adverse Reactions EMS Past Medical History Medications Administered Section EMS Procedures Performed EMS Vital Signs EMS Patient Care Report Narrative Dispatched emergent to the residence of a 47 year old male complaining of an asthma attack. Upon arrival found patient standing on his front porch alert and oriented x4. He was diaphoretic and explained that he began having trouble breathing the night night before and has been coughing through the night. As of this morning he began to have an asthma attack and he attempted to use his inhaler but has had little relief. He requested to be transported to [facility] ED for an evaluation. He advised that he could walk to ambulance and he was escorted by EMS to ambulance and assisted onto the stretcher. He was secured with straps in a position of comfort. An ALS assessment was performed and noted. Lung sounds assessed and rhonchi and wheezing noted in lower lung rincon. He has a past medical history of COPD, asthma, HTN, and DM. Medications and allergies noted. He was placed on ECG monitor showing a NSR. Vitals obtained, within normal limits, documented, and monitored. He was given a duo-nebulizer running on 6L of oxygen. A blood draw was performed via 20g to left AC. An IV was established, 20g saline lock to left AC and flushed with 10ml of NS. Blood glucose checked off of IV catheter and read at 106. He was monitored closely and transported non-emergent to [facility] ED without incident per his request. He required transport via ambulance because his acute asthma was causing breathing difficulties and he required medication and oxygen administration during transport. He was taken into [facility] ED on stretcher and he slid himself over into bed #9. Patient care and report transferred over to Mounika Benito RN. Run completed by Harsh Mccloud, CCTP.
--- OUTSIDE RECORDS SUMMARY | 2017-05-11 21:09 | External Medical Summary Rpt | Continuity of Care Document ---
Author Author Organization Address Unknown Phone Unavailable Care Team Providers Care Clinical Physician Assistant Name Role Phone , Unavailable Unavailable EMS [...] relief. He requested to be transported to [facility] ED for an evaluation. He advised that [...] was monitored closely and transported non-emergent to [facility] ED without incident per his request. He required transport via ambulance because his acute asthma was causing breathing difficulties and he required medication and oxygen administration during transport. He was taken into [facility] ED on stretcher and he slid himself over into bed #9. Patient care and report transferred over to Mounika Benito RN. Run completed by Harsh Mccloud, CCTP.
--- OUTSIDE RECORDS SUMMARY | 2017-05-11 21:12 | External Medical Summary Rpt | CCD ---
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 Name Role Phone A Jose GARCIA MD PSC, A Unavailable Unavailable Jose GARCIA MD PSC [facility] Unavailable Unavailable [facility], [facility] DOMENICA, Unavailable Unavailable [facility] DOMENICA LIYA JUNIOR, Unavailable Unavailable LIYA JUNIOR [facility] Unavailable Unavailable SERVICE, [facility] Royal LUNA, Royal LUNA Unavailable Unavailable TITO CRISTOBAL, TITO Unavailable Unavailable [facility]EV[facility] Unavailable Unavailable INC, [facility] Un[facility] Un[facility] P, [facility] Unavailable Unavailable IMAGING [facility], [facility] SHEA, IVANA Sanchez, , Unavailable Unavailable IVANA G [facility], Unavailable Unavailable [facility] LUTZ TRA, L[facility]Z TRA Unavailable Unavailable Harsh Swanson MD, Unavailable Unavailable Harsh Swanson MD [facility] Unavailable Unavailable SERVICES, [facility] EVGENY ALEXIS MD, Unavailable Unavailable MD [facility], Unavailable Unavailable PLL[facility], [facility], [facility] DERICK SHANNAN, DERICK SHANNAN Unavailable Unavailable SONY MAYORGA JR, Unavailable Unavailable SONY MAYORGA JR, Unavailable Unavailable FREDERICK NGUYEN [facility], Unavailable Unavailable [facility] Unavailable Unavailable EQUIPME, [facility] TALANOW ROL, TALANOW Unavailable Unavailable ROL BOB AVA, BOB AVA Unavailable Unavailable [facility] Unavailable Unavailable [facility] Unavailable Unavailable [facility], [facility] WEHRJAC III MONICA, Unavailable Unavailable WEHRMAN III ERIC WAGGONER Unavailable Unavailable Dong E. Wehrjac Loaiza III, MD, Dong Self III, MD [facility], Unavailable Unavailable [facility] Purpose Continuity of Care Document - 08-10-2007 through 2016 Problems Code Diagnosis DOS Provider Status R05 COUGH 04-09-2017 [facility] R0602 SHORTNESS 04-09-2017 [place] [facility] R0902 HYPOXEMIA 04-09-2017 [facility] R61 GENERALIZED 04-09-2017 [facility] HYPERHIDROS SERVICE IS J301 ALLERGIC 03-30-2017 [facility] DUE TO [place] POLLEN J3081 ALLERG 03-30-2017 [facility] D/T ANIMAL [facility] CAT DOG HAIR & DANDER J3089 OTHER 03-30-2017 [facility] RHINITIS [place] G4733 OBSTRUCTIVE 03-29-2017 [facility] E559 VITAMIN D 03-22-2017 [facility] UNSPECIFIED INC J4551 SEVERE 03-22-2017 [facility]ENT [facility] ASTHMA WITH INC ACUTE EXACERBATIO N L508 OTHER 03-22-2017 [facility] URTICARIA [facility] INC Y54521 OTHER LONG 03-22-2017 [facility] TERM [facility] CURRENT INC DRUG THERAPY J449 CHRONIC 03-17-2017 [facility] PULMONARY [facility] DISEASE UNS J4550 SEVERE 03-17-2017 [facility] ASTHMA [facility] UNCOMPLICAT ED Y22950 UNSPECIFIED 03-10-2017 [facility]COMPL[facility] ED I10 ESSENTIAL 01-01-2017 [facility] HYPERTENSIO PLLC N L509 URTICARIA 01-01-2017 [facility] UNSPECIFIED [facility], PLLC E119 TYPE 2 12-23-2016 [facility] DIABETES [facility] MELLITUS INC WITHOUT COMPLICATIO NS G169GYK ANGIONEUROT 12-23-2016 [facility] IC EDEMA [facility], INITIAL PLLC ENCOUNTER Z720 TOBACCO USE 12-23-2016 [facility] INC V93460 UNSPECIFIED 07-31-2016 Vonda GARCIA ASTHMA PSC WITH ACUTE EXACERBATIO N J209 ACUTE 07-28-2016 [facility] BRONCHITIS [facility] P J440 COPD WITH 07-28-2016 [facility] INFECTION J441 CHRONIC 11-12-2015 [facility] OBSTRUCTIVE [facility] PULMONARY INC DZ W/EXACERBAT ION M545 LOW BACK 11-12-2015 [facility] PAIN [facility] INC R0600 DYSPNEA 11-12-2015 [facility] R1032 LEFT LOWER 11-12-2015 [place] [facility] K19333 PAIN IN 04-30-2015 [place] [facility]NEE [facility] E1141 TYPE 2 04-25-2015 [facility] DIABETES PODIATRY MELLITUS W/DIAB MONONEUROPA THY V03984 SPONTANEOUS 04-25-2015 [facility] RUPTURE PODIATRY FLEXOR TENDONS LT ANKLE FOOT L87618 PAIN IN 04-25-2015 PROGR[facility]IVE LEFT FOOT PODIATRY B353 TINEA PEDIS 04-23-2015 [facility] INC 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 INC S 34311 OBSTRUCTIVE 03-12-2015 [facility]QU[facility] 15427 ASTHMA, 03-06-2015 [facility] UNSPECIFIED STATUS 82991 DIAB W/O 02-27-2015 [facility] COMP TYPE MEDICAL II/UNS TYPE EQUIPME UNCNTRL 4019 UNSPECIFIED 12-30-2014 [facility] ESSENTIAL [facility] HYPERTENSIO INC N 486 PNEUMONIA, 12-30-2014 [facility] ORGANISM [facility] UNSPECIFIED INC 496 CHRONIC 12-30-2014 [facility] AIRWAY [facility] OBSTRUCTION INC NEC 23328 SHORTNESS 12-30-2014 [place] 7862 COUGH 12-30-2014 [facility] 16192 CHEST PAIN 12-06-2014 [facility] 61451 ABDOMINAL 10-19-2014 [place] PAIN, MEDICAL UNSPECIFIED IMAGING ASS SITE 5180 PULMONARY 04-19-2014 [facility] [facility]SE [facility] 65226 PAINFUL 02-21-2014 [facility] RESPIRATION 13650 ASTHMA 10-09-2013 ERIC YOUNGER UNSPECIFIED WITH EXACERBATIO N 17444 WHEEZING 10-09-2013 [facility] V140 PERSONAL 10-09-2013 [facility] ALL[facility]GY TO HOSPITAL P PENICILLIN 305.1 305.1 06-12-2013 Jason TOBACCO USE [facility] 380.4 380.4 06-12-[address] [facility] 3804 IMPACTED 06-12-2013 [facility] 401.9 401.9 06-12-2013 [facility] N NOS Hospital 89183 OTHER 10-04-2012 [place] NONSPECIFIC [facility]ICAL ABNORMAL [facility]ING ASS FINDING OF LUNG FIELD 491.21 491.21 09-25-2012 [facility] BRONCHITIS, W (ACUTE) EXACERBATIO N 90883 OBSTRUCTIVE 09-25-2012 [facility] P WITH EXACERBATIO N 493.90 493.90 09-25-2012 [facility] 7231 CERVICALGIA 04-07-2012 [facility] INCLUDES THE [facility] LOCH DOMENICA 7241 PAIN IN 04-07-2012 [facility] THORACIC LOCH DOMENICA SPINE 462 ACUTE 02-25-2012 WEHRMAN III PHARYNGITIS MONICA 4660 ACUTE 01-21-2012 [facility] INC 3360 SYRINGOMYEL 01-07-2012 BOB AVA IA AND SYRINGOBULB IA 7245 UNSPECIFIED 12-31-2011 MACK BACKACHE WENDY 7812 ABNORMALITY 12-31-2011 [facility] OF GAIT LOCH DOMENICA 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 7820 DISTURBANCE 11-26-2011 TALANOW ROL OF SKIN SENSATION 61075 OTHER 10-10-2009 Royal LUNA [place] [address] HIGH 10-03-2009 DERICK SHANNAN ALTITUDE PERIODIC BREATHING 48806 EXTRINSIC 10-03-2009 DERICK SHANNAN ASTHMA, UNSPECIFIED V472 OTHER 10-03-2009 DERICK SHANNAN CARDIORESPI RATORY PROBLEMS V0481 NEED 04-23-2009 TIERRA PROPHYLACTSONY Mercado JR VACCINATION &INOCULATIO N FLU 27554 OTHER 04-15-2009 [facility] DISEASES OF (P1017) LUNG NOT UNIV RADIOL ELSEWHERE ASSOC CLASSIFIED 49221 ACUTE 04-15-2009 EVGENY ALEXIS BRONCHBERNA [place] M 78386 PAIN IN 11-05-2008 [facility] JOINT, (P1017) ANKLE AND UNIV RADIOL FOOT ASSOC 48810 UNSPECIFIED 11-05-2008 SANDI, SITE OF LIYA Guerra ANKLE SPRAIN AND STRAIN E8888 OTHER FALL 11-05-2008 SANDILIYA SALGADO 1629 MALIGNANT 05-06-2008 [facility], NEOPLASM INC BRONCHUS&EVON NG UNSPEC SITE 57506 OBST 04-27-2008 SONY MEADE JR BRONCHITIS W/ACUTE BRONCHITIS 85217 UNSPECIFIED 11-23-2007 [facility] OF APNEA [facility] 92823 OTHER 11-23-2007 [facility] MALAISE AND OF FATIGUE [facility] 7840 HEADACHE 11-23-2007 [facility] 7806 FEVER & OTH 08-10-2007 IVANA [...] T14.8 OTHER INJURY OF UNSPECIFIED BODY REGION T14.8XXA OTHER INJURY OF UNSPECIFIED BODY REGION, INITIAL ENCOUNTER T78.3XXA ANGIONEUROT IC EDEMA, INITIAL ENCOUNTER Z72.0 TOBACCO USE 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 AR 5- MA 3( CY 2. 5) #3 93 MG 8 /3 ML IP 00 04 0 No [...] Order Detail nces retati t Range on CBC w auto diff (05-11-2017 20:15) Automat = 0.1 0-0.2 complet ed 017 K/MM3 ed blood 20:15 basophi l count (count/ vo Baso % = 0.6 % 0.1-2.0 complet 017 ed 20:15 Automat = 0.7 0.0-0.4 complet ed 017 K/mm3 ed blood 20:15 eosinop hil count Automat = 6.9 % 0.1-12. complet ed 017 0 ed blood 20:15 eosinop hils/10 0 leukocy t Blood = 4.9 1.3-8.0 complet granulo 017 K/mm3 ed cytes 20:15 automat ed count (numb Granulo = 51.5 37.0-80 complet cyte 017 % .0 ed percent 20:15 age Blood = 49.9 42.0-52 complet hematoc 017 % .0 ed rit 20:15 (volume fractio n) Blood = 16.5 14.1-18 complet hemoglo 017 g/dL .0 ed bin 20:15 measure ment (mass/v olum Absolut = 3.4 0.7-4.5 complet e 017 K/mm3 ed lymphoc 20:15 yte count Lymphoc = 35.8 10-50 complet yte 017 % ed count, 20:15 blood, automat ed Mean = 29.7 27-31.2 complet corpusc 017 pg ed ular 20:15 hemoglo bin (MCH) determ Automat = 33.1 31.8-35 complet ed 017 g/dl .4 ed erythro 20:15 cyte mean corpusc ular h Automat = 89.5 82.2-97 complet ed 017 fl .8 ed erythro 20:15 cyte mean corpusc ular v Absolut = 0.5 0.1-1.0 complet e 017 K/mm3 ed monocyt 20:15 e count Haralson % = 5.2 % 1.7-9.3 complet 017 ed 20:15 Automat = 8.4 7.4-10. complet ed 017 fl 4 ed blood 20:15 platele t mean volume patti Blood = 273 142-424 complet platele 017 K/mm3 ed t count 20:15 Red = 5.57 4.6-6.2 complet blood 017 M/mm3 ed cell 20:15 count Automat = 13.0 11.5-17 complet ed 017 % .5 ed erythro 20:15 cyte distrib ution width Blood = 9.5 4.8-10. complet leukocy 017 K/MM3 8 ed viviana 20:15 count (number /volume ) Serum or plasma troponin i.cardiac measu (04-09-2017 07:55) Serum < 0.02 0.00-0. complet or 017 ng/mL 06 ed plasma 07:55 troponi n i.cardi ac measu Comprehensive metabolic panel (04-09-2017 07:55) Protein = 7.8 6.4-8.2 complet total 017 gm/dL ed ser/craig 07:55 s ALT = 40 12-78 complet (SGPT) 017 U/L ed ser/craig 07:55 s Serum = 17 15-37 complet or 017 U/L ed plasma 07:55 asparta te aminotr ansfera Serum = 141 136-145 complet sodium 017 mmoL/L ed measure 07:55 ment Serum = 3.8 3.5-5.1 complet potassi 017 mmoL/L ed um 07:55 measure ment Serum = 107 74-106 complet or 017 mg/dL ed plasma 07:55 glucose measure ment (mas Serum = 3.8 1.3-3.2 complet globuli 017 gm/dL ed n 07:55 measure ment (mass/v olume) Estimat = 65 >60 complet ed 017 ML/MIN ed glomeru 07:55 lar filtrat ion rate (GF Comment: REFERENCE RANGE: >60 ML/MIN/1.73 SQUARE METERS Comment: If this patient is -Cymro, then multiply the Comment: result by 1.210. Estimat = 145 50-200 complet ion of 017 ML/MIN ed creatin 07:55 ine renal clearan ce Serum = 1.2 0.70-1. complet or 017 mg/dL 30 ed plasma 07:55 creatin ine measure ment ( Carbon = 26 21.0-32 complet dioxide 017 mmoL/L .0 ed 07:55 measure ment Serum = 103 98-107 complet or 017 mmoL/L ed plasma 07:55 chlorid e measure ment (mo Serum = 9.2 8.5-10. complet or 017 mg/dL 1 ed plasma 07:55 calcium measure ment (mas Serum = 11 7-18 complet or 017 mg/dL ed plasma 07:55 urea nitroge n measure men Serum = 0.7 0.2-1.0 complet or 017 mg/dL ed plasma 07:55 total bilirub in measure m Serum = 1.1 1.1-1.8 complet or 017 ed plasma 07:55 albumin /globul in mass ra Serum = 70 46-116 complet or 017 U/L ed plasma 07:55 alkalin e phospha tase patti Serum = 4.0 3.4-5.0 complet or 017 gm/dL ed plasma 07:55 albumin measure ment (mas Brain natriuretic peptide (04-09-2017 07:55) Brain < 5 0-100 complet natriur 017 pg/mL ed etic 07:55 peptide CBC w auto diff (04-09-2017 07:55) Automat = 89.0 82.2-97 complet ed 017 fl .8 ed erythro 07:55 cyte mean corpusc ular v Automat = 33.1 31.8-35 complet ed 017 g/dl .4 ed erythro 07:55 cyte mean corpusc ular h Mean = 29.4 27-31.2 complet corpusc 017 pg ed ular 07:55 hemoglo bin (MCH) determ Lymphoc = 38.2 10-50 complet yte 017 % ed count, 07:55 blood, automat ed Absolut = 3.2 0.7-4.5 complet e 017 K/mm3 ed lymphoc 07:55 yte count Blood = 16.4 14.1-18 complet hemoglo 017 g/dL .0 ed bin 07:55 measure ment (mass/v olum Blood = 49.6 42.0-52 complet hematoc 017 % .0 ed rit 07:55 (volume fractio n) Granulo = 46.0 37.0-80 complet cyte 017 % .0 ed percent 07:55 age Blood = 3.9 1.3-8.0 complet granulo 017 K/mm3 ed cytes 07:55 automat ed count (numb Automat = 8.1 % 0.1-12. complet ed 017 0 ed blood 07:55 eosinop hils/10 0 leukocy t Automat = 0.7 0.0-0.4 complet ed 017 K/mm3 ed blood 07:55 eosinop hil count Automat = 0.1 0-0.2 complet ed 017 K/MM3 ed blood 07:55 basophi l count (count/ vo Blood = 8.5 4.8-10. complet leukocy 017 K/MM3 8 ed viviana 07:55 count (number /volume ) Automat = 13.5 11.5-17 complet ed 017 % .5 ed erythro 07:55 cyte distrib ution width Red = 5.58 4.6-6.2 complet blood 017 M/mm3 ed cell 07:55 count Blood = 291 142-424 complet platele 017 K/mm3 ed t count 07:55 Automat = 8.9 7.4-10. complet ed 017 fl 4 ed blood 07:55 platele t mean volume patti Haralson % = 6.6 % 1.7-9.3 complet 017 ed 07:55 Absolut = 0.6 0.1-1.0 complet e 017 K/mm3 ed monocyt 07:55 e count Baso % = 1.1 % 0.1-2.0 complet 017 ed 07:55 CBC w auto diff (03-22-2017 10:43) Blood = 242 142-424 complet platele 017 K/mm3 ed t count 10:43 Automat = 9.6 7.4-10. complet ed 017 fl 4 ed blood 10:43 platele t mean volume patti Haralson % = 5.1 % 1.7-9.3 complet 017 [...] ed erythro 10:43 cyte distrib ution width Serum or plasma 25-hydroxyvitamin D federico (03-22-2017 10:43) Serum = 10.0 30.0-10 complet or 017 ng/mL 0.0 ed plasma 10:43 25-hydr oxyvita min D federico Comment: Vitamin D deficiency has been defined by the [place] of Comment: Medicine and an Endocrine Society practice guideline as a Comment: level of serum 25-OH vitamin D less than 20 ng/mL (1,2). Comment: The Endocrine Society went on to further define vitamin D Comment: insufficiency as a level between 21 and 29 ng/mL (2). Comment: 1. IOM ([place] of Medicine). 2010. Dietary reference Comment: intakes for calcium and D. Eng DC: The Comment: National AcademLestis [employer]. Comment: 2. Shanon MF, [place], Ger [place], et al. Comment: Evaluation, treatment, and prevention of vitamin D Comment: deficiency: an Endocrine Society clinical practice Comment: guideline. JCEM. 2010; 96(7):1911-30. Serum thyroperoxidase antibody assay (03-22-2017 10:43) Serum = 12 0-34 complet thyrope 017 IU/mL ed roxidas 10:43 e antibod y assay Comment: Performed at: [facility] Comment: [id number], [place] [id number] Comment: Rn Telephonic: Merlin Castaneda PhD, Phone: [phone] Serum or plasma thyroglobulin antibody a (03-22-2017 10:43) Serum < 1.0 0.0-0.9 complet or 017 IU/mL ed plasma 10:43 thyrogl obulin antibod y a Comment: Thyroglobulin Antibody measured by Giovanna Arely Comment: Methodology Comment: Performed at: [facility] Comment: [id number], [place] [id number] Comment: Rn Telephonic: Merlin Castaneda PhD, Phone: [phone] Serum or plasma IgE measurement (units/v (03-22-2017 10:43) Serum = 1223 0-100 complet or 017 IU/mL ed plasma 10:43 IgE measure ment (units/ v Comment: Performed at: [facility] Comment: [id number], [place] [id number] Comment: Rn Telephonic: Merlin Castaneda PhD, Phone: [phone] Antinuclear Antibodies, IFA (03-22-2017 10:43) Serum = . complet nuclear 017 Negativ ed 10:43 e antibod y titer by immunof l Comment: Negative <1:80 Comment: Borderline 1:80 Comment: Positive >1:80 Comment: Performed at: [facility] Comment: [id number], [place] [id number] Comment: Rn Telephonic: Merlin Castaneda PhD, Phone: [phone] BASIC METABOLIC PANEL (09-25-2012 10:15) Glucose 121 [...] 013 mmoL/L ed SerPl-s 10:15 Cnc CO2 09-25-2 29 21.0-32 complet SerPl-s 013 mmoL/L .0 ed Cnc 10:15 Calcium 09-25-2 8.9 8.5-10. complet 013 mg/dL 1 ed SerPl-m 10:15 Cnc CBC with AUTO DIFF (09-25-2012 10:15) WBC # -14-2 8.3 4.8-10. complet Bld 013 K/MM3 8 ed Auto 10:15 RBC # 14-2 5.38 4.6-6.2 complet Bld 013 M/mm3 ed Auto 10:15 Hgb 09-25-2 15.9 14.1-18 complet Bld-mCn 013 g/dL .0 ed c 10:15 Hct Fr 48.5 % 42.0-52 complet Bld 013 .0 ed 10:15 MCV RBC 09-25-2 90.3 fl 82.2-97 complet 013 .8 ed 10:15 MCH RBC 09-25-2 29.5 pg 27-31.2 complet Qn 013 ed Auto 10:15 MEAN 09-25-2 32.7 31.8-35 complet CORPUSC 013 g/dl .4 ed ULAR 10:15 HGB CONC RDW RBC 09-25-2 14.1 % 11.5-17 complet Auto 013 .5 ed 10:15 Platele 09-25-2 281 142-424 complet t Bld 013 K/mm3 ed Ql 10:15 Manual MEAN 09-25-2 7.7 fl 7.4-10. complet PLATELE 013 4 ed T 10:15 VOLUME Granulo 09-25-2 47.6 % 37.0-80 complet cytes 013 .0 ed Fr Bld 10:15 Auto LYMPH % 09-25-2 38.9 % 10-50 complet 013 ed 10:15 Monocyt 09-25-2 5.2 % 1.7-9.3 complet es Fr 013 ed Bld 10:15 Auto Eosinop 09-25-2 7.8 % 0.1-12. complet hil Fr 013 0 ed Bld 10:15 Auto Basophi 09-25-2 0.5 % 0.1-2.0 complet ls Fr 013 ed Bld 10:15 Auto Granulo 09-25-2 4.0 1.3-8.0 complet cytes # 013 K/mm3 ed Bld 10:15 Auto Lymphoc 14-2 3.2 0.7-4.5 complet ytes Fr 013 K/mm3 ed Bld 10:15 Auto Monocyt 09-25-2 0.4 0.1-1.0 complet es # 013 K/mm3 ed Bld 10:15 Auto Eosinop 14-2 0.7 0.0-0.4 complet hil # 013 K/mm3 ed Bld 10:15 Auto Basophi 14-2 0.0 0-0.2 complet ls # 013 K/MM3 ed Bld 10:15 Auto Procedures Procedure DOS Code Location Performer Comment IRRIGATIO 96.52 Harsh Swanson MD Encounters Encounter Start End Date Code Location Performer Type Date [facility] J[facility]ON - 7 7 [facility] 7 7 [facility] - 7 7 [facility] JASON - 7 7 [facility] JASON - 6 6 [facility] JAS[facility] - 5 5 [facility] JASON - 5 5 [facility] JESSICA Swanson MD (ER) 3 06:43 3 07:24 [facility] Emergency JESSICA Mendoza (ER) 3 18:20 3 20:16 [facility] JESSICA Self (ER) 3 10:22 3 11:22 [facility] JASON - 3 3 [facility] JASON - 2 2 [facility] JASON - 2 2 [facility] JASON - 2 2 [facility] JASON - 1 1 [facility]AS[facility] - 1 1 [facility] - 0 0 [facility] 0 [facility] - 0 0 [facility] - 9 9 [facility] - 8 8 [facility] - 8 8 [facility]
--- OUTSIDE RECORDS SUMMARY | 2017-05-11 21:12 | External Medical Summary Rpt | CCD ---
Author Author , SAMIR DAWSON Address Unknown Phone [email or web address] Care Team Providers Care Mesmerist Name Role Phone A Jose GARCIA MD PSC, A Unavailable Unavailable Jose GARCIA MD PSC [facility] Unavailable Unavailable [place], [facility] [place] [facility] DOMENICA, Unavailable Unavailable [facility] LIYA JUNIOR, Unavailable Unavailable LIYA JUNIOR [facility] Unavailable Unavailable SERVICE, [facility] Royal LUNA, Royal LUNA Unavailable Unavailable TITO CRISTOBAL, TITO Unavailable Unavailable LEVAR [facility] Unavailable Unavailable INC, [facility] Unavailable Unavailable HOSPITAL P, [facility] Unavailable Unavailable IMAGING ASS, [facility]ING ASS SHEA, IVANA Sanchez, , Unavailable Unavailable IVANA G [facility], Unavailable Unavailable [facility] LUTZ TRA, LUTZ TRA Unavailable Unavailable Harsh Swanson MD, Unavailable Unavailable Harsh Swanson MD [facility] Unavailable Unavailable SERVICES, [facility] EVGENY ALEXIS MD, Unavailable Unavailable MD [facility], Unavailable Unavailable PLLC, [facility], [facility] DERICK SHANNAN, DERICK SHANNAN Unavailable Unavailable SONY MAYORGA JR, Unavailable Unavailable SONY MAYORGA JR, Unavailable Unavailable FREDERICK NGUYEN [facility], Unavailable Unavailable [facility] Unavailable Unavailable EQUIPME, [facility] TALANOW ROL, TALANOW Unavailable Unavailable ROL BOB AVA, BOB AVA Unavailable Unavailable [facility] Unavailable Unavailable [facility], [facility] Unavailable Unavailable [facility], [facility] WEHRJAC III MONICA, Unavailable Unavailable WEHRMAN III ERIC WAGGONER Unavailable Unavailable Dong E. Wehrjac Loaiza III, MD, Dong Self III, MD [facility], Unavailable Unavailable [facility] Purpose Continuity of Care Document - 08-10-2007 through 2016 Problems Code Diagnosis DOS Provider Status R05 COUGH 04-09-2017 [facility] R0602 SHORTNESS 04-09-2017 [place] [facility] R0902 HYPOXEMIA 04-09-2017 [facility] R61 GENERALIZED 04-09-2017 [facility] HYPERHIDROS SERVICE IS J301 ALLERGIC 03-30-2017 [...] OTHER 03-22-2017 [facility] O35386 OTHER LONG 03-22-2017 [facility] CURRENT INC DRUG THERAPY J449 CHRONIC 03-17-2017 [facility] PULMONARY [place] DISEASE UNS J4550 SEVERE 03-17-2017 [facility]ST[facility] AST[facility]MA [place] UNCOMPLICAT ED Z21993 UNSPECIFIED 03-10-2017 [facility] UNCOMPLICAT [facility] ED I10 ESSENTIAL 01-01-2017 [facility], HYPERTENSIO PLLC N L509 URTICARIA 01-01-2017 [facility] UNSPECIFIED PHYSICIANS, PLLC E119 TYPE 2 12-23-2016 [facility]ES [facility] MELLITUS INC WITHOUT COMPLICATIO NS H833PGT ANGIONEUROT 12-23-2016 [facility] IC EDEMA PHYSICIANS, INITIAL PLLC ENCOUNTER Z720 TOBACCO USE 12-23-2016 [facility] T06796 UNSPECIFIED 07-31-2016 Vonda GARCIA ASTH[facility] PSC WITH ACUTE EXACERBATIO N J209 ACUTE 07-28-2016 [facility] BRONCHITIS [facility] P J440 COPD WITH 07-28-2016 [facility] RESPIRATORY INFECTION J441 CHRONIC 11-12-2015 [facility] OBSTRUCTIVE [facility] PULMONARY INC DZ W/EXACERBAT ION M545 LOW BACK 11-12-2015 [facility] PAIN [facility] INC R0600 DYSPNEA 11-12-2015 [place] [facility]PEC[facility] ASS R1032 LEFT LOWER 11-12-2015 [place] [facility] U23067 PAIN IN 04-30-2015 [place] LEFT KNEE MEDICAL IMAGING ASS E1141 TYPE 2 04-25-2015 PROGR[facility]IVE DIABETES PODIATRY MELLITUS W/DIAB MONONEUROPA THY Q28275 SPONTANEOUS 04-25-2015 PROGRESSIVE RUPTURE PODIATRY FLEXOR TENDONS LT ANKLE FOOT W48071 PAIN IN 04-25-2015 PROGRESSIVE LEFT FOOT PODIATRY B353 TINEA PEDIS 04-23-2015 [facility] 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 INC S 96324 OBSTRUCTIVE 03-12-2015 [facility] EQU[facility]ME 36815 ASTHMA, 03-06-2015 [facility] LLC UNSPECIFIED STATUS 33630 DIAB W/O 02-27-2015 [facility] COMP TYPE MEDICAL II/UNS TYPE EQUIPME UNCNTRL 4019 UNSPECIFIED 12-30-2014 [facility] ESSENTIAL [facility] HYPERTENSIO INC N 486 PNEUMONIA, 12-30-2014 [facility] ORGANISM [facility] UNSPECIFIED INC 496 CHRONIC 12-30-2014 [facility] AIRWAY [facility] OBSTRUCTION INC NEC 71666 SHORTNESS 12-30-2014 [place] [facility] 7862 COUGH 12-30-2014 [facility] 84039 CHEST PAIN 12-06-2014 [place] UNSPECIFIED [facility]ICAL IM[facility]ING ASS 42548 ABDOMINAL 10-19-2014 [place] PAIN, MEDICAL UNSPECIFIED IMAGING ASS SITE 5180 PULMONARY 04-19-2014 [place] COLLAPSE [facility] 86177 PAINFUL 02-21-2014 [facility] RESPIRATION 37640 ASTHMA 10-09-2013 ERIC YOUNGER UNSPECIFIED WITH EXACERBATIO N 37092 WHEEZING 10-09-2013 [facility] V140 PERSONAL 10-09-2013 [facility] ALLERGY TO HOSPITAL P PENICILLIN 305.1 305.1 06-12-2013 Jason TOBACCO USE [facility] 380.4 380.4 06-12-2013 Jason IMPACTED [facility] 3804 IMPACTED 06-12-2013 [facility] 401.9 401.9 06-12-2013 [facility] 93491 OTHER 10-04-2012 [place] NONSPECIFIC MEDICAL ABNORMAL IMAGING ASS FINDING OF LUNG FIELD 491.21 491.21 09-25-2012 [facility] BRONCHITIS, W (ACUTE) EXACERBATIO N 14123 OBSTRUCTIVE 09-25-2012 [facility]PITAL P WITH EXACERBATIO N 493.90 493.90 09-25-2012 [facility] 7231 CERVICALGIA 04-07-2012 [facility] LOCH DOMENICA 7241 PAIN IN 04-07-2012 [facility] THORACIC LOCH DOMENICA SPINE 462 ACUTE 02-25-2012 WEHRMAN III PHARYNGITIS MONICA 4660 ACUTE 01-21-2012 [facility]ONCHITIS [facility] 3360 SYRINGOMYEL 01-07-2012 BOB AVA IA AND SYRINGOBULB IA 7245 UNSPECIFIED 12-31-2011 MACK BACKACHE WENDY 7812 ABNORMALITY 12-31-2011 [facility] GAIT LOCH DOMENICA 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 7820 DISTURBANCE 11-26-2011 T[place] ROL OF SKIN SENSATION 38718 OTHER 10-10-2009 Royal LUNA D[place]NE[place] [address] HIGH 10-03-2009 DERICK SHANNAN ALTITUDE PERIODIC BREATHING 39406 EXTRINSIC 10-03-2009 DERICK SHANNAN ASTHMA, UNSPECIFIED V472 OTHER 10-03-2009 DERICK SHANNAN CARDIORESPI RATORY PROBLEMS V0481 NEED 04-23-2009 [facility] PROPHYLACTSONY Mercado JR VACCINATION &INOCULATIO N FLU 10267 OTHER 04-15-2009 [facility] DISEASES OF (P1017) LUNG NOT UNIV RADIOL ELSEWHERE ASSOC CLASSIFIED 15389 ACUTE 04-15-2009 EVGENY ALEXIS BRONCHBERNA LANDAVERDE M 10028 PAIN IN 11-05-2008 [facility] JOINT, (P1017) ANKLE AND UNIV RADIOL FOOT ASSOC 56282 UNSPECIFIED 11-05-2008 SANDI, SITE OF LIYA Guerra ANKLE SPRAIN AND STRAIN E8888 OTHER FALL 11-05-2008 SANDILIYA SALGADO 1629 MALIGNANT 05-06-2008 [facility], NEOPLASM INC BRONCHUS&EVON NG UNSPEC SITE 88198 OBST 04-27-2008 SONY MEADE JR BRONCHITIS W/ACUTE BRONCHITIS 12506 UNSPECIFIED 11-23-2007 [facility] 95502 OTHER 11-23-2007 [facility]ISE AND OF [place] 7840 HEADACHE 11-23-2007 [facility] 7806 FEVER & OTH 08-10-2007 IVANA VALDIVIA [...] INITIAL ENCOUNTER Z72.0 TOBACCO USE Z79.899 OTHER BUNDLE TIER AND LABELER (CURRENT) DRUG THERAPY Allergies, Adverse Reactions, Alerts [...] 017 K/mm3 ed monocyt 20:15 e count [place] % = 5.2 % 1.7-9.3 complet 017 [...] SQUARE METERS Comment: If this patient is -Spanish, then multiply the Comment: result by 1.210. [...] blood 07:55 platele t mean volume patti [place] % = 6.6 % 1.7-9.3 complet 017 [...] blood 10:43 platele t mean volume patti [place] % = 5.1 % 1.7-9.3 complet 017 [...] D deficiency has been defined by the [place] of Comment: Medicine and an Endocrine Society practice guideline as a Comment: level of serum 25-OH vitamin D less than 20 ng/mL (1,2). Comment: The Endocrine Society went on to further define vitamin D Comment: insufficiency as a level between 21 and 29 ng/mL (2). Comment: 1. IOM ([place] of Medicine). 2010. Dietary reference Comment: intakes for calcium and D. Eng DC: The Comment: National AcademJade [employer] Press. Comment: 2. Shanon MF, [place], Ger [place], et al. Comment: Evaluation, treatment, and prevention of vitamin D Comment: deficiency: an Endocrine Society clinical practice Comment: guideline. JCEM. 2010; 96(7):1911-30. Serum thyroperoxidase antibody assay (03-22-2017 10:43) Serum = 12 0-34 complet thyrope 017 IU/mL ed roxidas 10:43 e antibod y assay Comment: Performed at: [facility] Comment: [address], [place] [id number] Comment: Process Engineering Technician: Merlin Castaneda PhD, Phone: [phone] Serum or plasma thyroglobulin antibody a (03-22-2017 10:43) Serum < 1.0 0.0-0.9 complet or 017 IU/mL ed plasma 10:43 thyrogl obulin antibod y a Comment: Thyroglobulin Antibody measured by Giovanna Arely Comment: Methodology Comment: Performed at: [facility] Comment: [address], [place] [id number] Comment: Process Engineering Technician: Merlin Castaneda PhD, Phone: [phone] Serum or plasma IgE measurement (units/v (03-22-2017 10:43) Serum = 1223 0-100 complet or 017 IU/mL ed plasma 10:43 IgE measure ment (units/ v Comment: Performed at: [facility] Comment: [address], [place] [id number] Comment: Process Engineering Technician: Merlin Castaneda PhD, Phone: [phone] Antinuclear Antibodies, IFA (03-22-2017 10:43) Serum = . complet nuclear 017 Negativ ed 10:43 e antibod y titer by immunof l Comment: Negative <1:80 Comment: Borderline 1:80 Comment: Positive >1:80 Comment: Performed at: [facility] Comment: [address], [place] [id number] Comment: Process Engineering Technician: Merlin Castaneda PhD, Phone: [phone] BASIC METABOLIC PANEL (09-25-2012 10:15) Glucose 121 [...] End Date Code Location Performer Type Date [facility] J[facility]ON - [address] [facility] - [address] [facility] - 7 7 [facility] JASON - 7 7 [facility] JASON - 6 6 [facility] JASON - 5 5 [facility] JASON - [address] [facility] - [address] [facility] JESSICA Swanson MD (ER) 3 06:43 3 07:24 [facility] Emergency JESSICA Mendoza (ER) 3 18:20 3 20:16 [facility] JESSICA Self (ER) 3 10:22 3 11:22 [facility] JASON - 3 3 [facility] JASON - 2 2 [facility] JASON - 2 2 [facility] JASON - 2 2 [facility] JASON - 1 1 [facility] JASON - 1 1 [facility]IVERSIT - 0 0 Y [facility] UNIVERSIT - 0 0 Y OF [facility]ERS[facility] - 0 0 Y [facility] - 9 9 Y [facility] UNIV[facility] - 8 8 Y OF [facility] UNIV[facility] - 8 8 Y OF [facility]
--- OUTSIDE RECORDS SUMMARY | 2017-05-11 21:14 | External Medical Summary Rpt | CCD ---
Author Author , SAMIR Marques SAMIR Address Unknown Phone [email or web address] Care Team Providers Care Brake Holder Name Role Phone A Jose GARCIA MD PSC, A Unavailable Unavailable Jose GARCIA MD PSC [facility] Unavailable Unavailable [place], [facility] [place] [facility]LO[facility] DOMENICA, Unavailable Unavailable [facility] DOMENICA LIYA JUNIOR, Unavailable Unavailable LIYA JUNIOR [facility] Unavailable Unavailable SERVICE, [facility] Royal LUNA, Royal LUNA Unavailable Unavailable TITO LEVAR, TITO Unavailable Unavailable LEVAR [facility] Unavailable Unavailable INC, [facility] Unavailable Unavailable HOSPITAL P, [facility] Unavailable Unavailable IMAGING ASS, [facility] IVANA VALDIVIA, , Unavailable Unavailable IVANA G [facility], Unavailable Unavailable [facility] LUTZ TRA, LUTZ TRA Unavailable Unavailable [facility] Unavailable Unavailable SERVICES, [facility] EVGENY ALEXIS MD, Unavailable Unavailable MD [facility], Unavailable Unavailable PLLC, [facility], [facility] DERICK CAMPBELL, DERICK SHANNAN Unavailable Unavailable SONY MAYORGA JR, Unavailable Unavailable SONY MAYORGA JR, Unavailable Unavailable FREDERICK NGUYEN [facility], Unavailable Unavailable [facility] Unavailable Unavailable EQUIPME, [facility] [place] ROL, TALANOW Unavailable Unavailable ROL BOB AVA, BOB AAV Unavailable Unavailable [facility] Unavailable Unavailable [facility], [facility] Unavailable Unavailable [facility] WEHRMAN III MONICA, Unavailable Unavailable WEHRMAN III ERIC WAGGONER Unavailable Unavailable [facility], Unavailable Unavailable [facility] Purpose Continuity of Care Document - 08-10-2007 through 2016 Problems Code Diagnosis DOS Provider Status R05 COUGH 04-09-2017 [facility] R0602 SHORTNESS 04-09-2017 [place] [facility]ICAL IM[facility]ING ASS R0902 HYPOXEMIA 04-09-2017 [facility] R61 GENERALIZED 04-09-2017 [facility] HYPERHIDROS SERVICE IS J301 ALLERGIC 03-30-2017 [...] OTHER 03-22-2017 [facility] [id number] OTHER LONG 03-22-2017 [facility] CURRENT INC DRUG THERAPY J449 CHRONIC 03-17-2017 [facility] PULMONARY [place] DISEASE UNS J4550 SEVERE 03-17-2017 [facility] [place] UNCOMPLICAT ED X29127 UNSPECIFIED 03-10-2017 [facility] UNCOMPLICAT LLC ED I10 ESSENTIAL 01-01-2017 [facility], HYPERTENSIO PLLC N L509 URTICARIA 01-01-2017 [facility] UNSPECIFIED PHYSICIANS, PLLC E119 TYPE 2 12-23-2016 [facility]ES [facility] MELLITUS INC WITHOUT COMPLICATIO NS [id number] ANGIONEUROT 12-23-2016 [facility] IC [facility]DEMA [facility], INITIAL PLLC ENCOUNTER Z720 TOBACCO USE 12-23-2016 [facility] N20008 UNSPECIFIED 07-31-2016 A Jose GARCIA AST[facility] PSC WITH ACUTE EXACERBATIO N J209 ACUTE 07-28-2016 [facility]PITAL P J440 COPD WITH 07-28-2016 [facility] P RESPIRATORY INFECTION J441 CHRONIC 11-12-2015 [facility]CTIVE [facility] PULMONARY INC DZ W/EXACERBAT ION M545 LOW BACK 11-12-2015 [facility] PAIN [facility] INC R0600 DYSPNEA 11-12-2015 [place] [facility]PEC[facility] ASS R1032 LEFT LOWER 11-12-2015 [place] [facility] D17913 PAIN IN 04-30-2015 [place] LEFT KNEE MEDICAL IM[facility]ING ASS E1141 TYPE 2 04-25-2015 PROGRESSIVE DIABETES PODIATRY MELLITUS W/DIAB MONONEUROPA THY W48781 SPONTANEOUS 04-25-2015 PROGRESSIVE RUPTURE PODIATRY FLEXOR TENDONS LT ANKLE FOOT J94233 PAIN IN 04-25-2015 PROGRESSIVE LEFT FOOT PODIATRY B353 TINEA PEDIS 04-23-2015 [facility] INC 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 INC S 87480 OBSTRUCTIVE 03-12-2015 [facility] EQU[facility]ME 18833 ASTHMA, 03-06-2015 [facility] LLC UNSPECIFIED STATUS 39340 DIAB W/O 02-27-2015 [facility] COMP TYPE MEDICAL II/UNS TYPE EQUIPME UNCNTRL 4019 UNSPECIFIED 12-30-2014 [facility] ESSENTIAL [facility] HYPERTENSIO INC N 486 PNEUMONIA, 12-30-2014 [facility]ISM [facility] UNSPECIFIED INC 496 CHRONIC 12-30-2014 [facility] [facility] OBSTRUCTION INC NEC 65013 SHORTNESS 12-30-2014 [place] [facility] 7862 COUGH 12-30-2014 [facility] 13209 CHEST PAIN 12-06-2014 [place] [facility]PECIFIED [facility] 87401 ABDOMINAL 10-19-2014 [place] PAIN, MEDICAL UNSPECIFIED IMAGING ASS SITE 5180 PULMONARY 04-19-2014 [facility] 85470 PAINFUL 02-21-2014 [facility] RESPIRATION 37658 ASTHMA 10-09-2013 ERIC YOUNGER UNSPECIFIED WITH EXACERBATIO N 46167 WHEEZING 10-09-2013 [facility] V140 PERSONAL 10-09-2013 [facility] ALLERGY TO [facility] P PENICILLIN 3804 IMPACTED 06-12-2013 [facility] 65022 OTHER 10-04-2012 [place] NONSPECIFIC MEDICAL ABNORMAL IMAGING ASS FINDING OF LUNG FIELD 20691 OBSTRUCTIVE 09-25-2012 [facility] BRONCHITIS HOSPITAL P WITH EXACERBATIO N 7231 CERVICALGIA 04-07-2012 [facility] LOCH DOMENICA 7241 PAIN IN 04-07-2012 [facility] THORACIC LOCH DOMENICA SPINE 462 ACUTE 02-25-2012 WEHRMAN III PHARYNGITIS MONICA 4660 ACUTE 01-21-2012 [facility]ITIS [facility] INC 3360 SYRINGOMYEL 01-07-2012 BOB AVA IA AND SYRINGOBULB IA 7245 UNSPECIFIED 12-31-2011 MACK BACKACHE WENDY 7812 ABNORMALITY 12-31-2011 AVERION-JANET OF GAIT LOCH DOMENICA 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 7820 DISTURBANCE 11-26-2011 TALMANSOORW ROL OF SKIN SENSATION 93487 OTHER 10-10-2009 Royal LUNA D[place] [address] HIGH 10-03-2009 DERICK CAMPBELL ALTITUDE PERIODIC BREATHING 91683 EXTRINSIC 10-03-2009 DERICK CAMPBELL ASTHMA, UNSPECIFIED V472 OTHER 10-03-2009 DERICK CAMPBELL CARDIORESPI RATORY PROBLEMS V0481 NEED 04-23-2009 [facility] PROPHYLACTSONY Mercado JR VACCINATION &INOCULATIO N FLU 19752 OTHER 04-15-2009 [facility] DISEASES OF (P1017) LUNG NOT UNIV RADIOL ELSEWHERE ASSOC CLASSIFIED 53024 ACUTE 04-15-2009 EVGENY ALEXIS BRONCHOSPSTEFFEN Guerra 69331 PAIN IN 11-05-2008 [facility] JOINT, (P1017) ANKLE AND UNIV RADIOL FOOT ASSOC 60698 UNSPECIFIED 11-05-2008 SANDI, SITE OF LIYA Guerra ANKLE SPRAIN AND STRAIN E8888 OTHER FALL 11-05-2008 LIYA JUNIOR 1629 MALIGNANT 05-06-2008 [facility], NEOPLASM INC BRONCHUS&EVON NG UNSPEC SITE 28577 OBST 04-27-2008 [facility] CHRONIC SONY SCHREIBER BRONCHITIS W/ACUTE BRONCHITIS 42495 UNSPECIFIED 11-23-2007 [place] [facility]EP [facility] 09261 OTHER 11-23-2007 [place] [facility] MALAISE AND OF [place] [facility] 7840 HEADACHE 11-23-2007 [facility] 7806 FEVER & OTH 08-10-2007 IVANA [...] CA #3 PS 93 UL 8 E Encounters Encounter Start End Date Code Location Performer Type Date [facility] 7 7 [facility] JASON - 7 7 [facility] JASON - 7 7 [facility] JASON - 7 7 [facility] JASON - 6 6 [facility] JASON - 5 5 [facility] JASON - 5 5 [facility] JASON - 5 5 [facility] JASON - 3 3 [facility] JASON - 2 2 [facility] JASON - 2 2 [facility] JASON - 2 2 [facility] JASON - 1 1 [facility] JASON - 1 1 [facility]ERS[facility] - 0 0 [facility] - 0 0 Y [facility] UNIVERS[facility] - 0 0 Y [facility] UN[facility] - 9 9 Y [facility] UN[facility] - 8 8 [facility] - [facility]
--- OUTSIDE RECORDS SUMMARY | 2017-05-11 21:14 | External Medical Summary Rpt | CCD ---
Author Author , SAMIR Marques SAMIR Address Unknown Phone [email or web address] Care Team Providers Care Window Shade Cutter Name Role Phone A Jose GARCIA MD [facility], A Unavailable Unavailable Jose GARCIA MD PSC [facility] Unavailable Unavailable [place], [facility] [place] [facility], Unavailable Unavailable [facility] LIYA JUNIOR, Unavailable Unavailable LIYA JUNIOR [facility] Unavailable Unavailable SERVICE, [facility] Royal LUNA, Royal LUNA Unavailable Unavailable TITO LEVAR, TITO Unavailable Unavailable LEVAR [facility] Unavailable Unavailable INC, [facility] Unavailable Unavailable [facility] P, [facility] Unavailable Unavailable [facility]ING [facility], [facility] IVANA VALDIVIA, , Unavailable Unavailable IVANA G [facility], Unavailable Unavailable [facility] LUTZ TRA, LUTZ TRA Unavailable Unavailable [facility] Unavailable Unavailable SERVICES, [facility] EVGENY ALEXIS MD, Unavailable Unavailable MD [facility] Un[facility] Unavailable [facility], [facility], [facility] DERICK CAMPBELL, DERICK SHANNAN Unavailable Unavailable SONY MAYORGA JR, Unavailable Unavailable SONY MAYORGA JR, Unavailable Unavailable FREDERICK NGUYEN [facility], Unavailable Unavailable [facility] Un[facility] Unavailable EQUIP[facility], [facility] TALANOW ROL, TALANOW Unavailable Unavailable ROL BOB AVA, BOB AVA Unavailable Unavailable [facility] Unavailable Unavailable [facility] Unavailable Unavailable [facility] WEHRMAN III MONICA, Unavailable Unavailable WEHRMAN III ERIC WAGGONER Unavailable Unavailable [facility], Unavailable Unavailable [facility] Purpose Continuity of Care Document - 08-10-2007 through 2016 Problems Code Diagnosis DOS Provider Status R05 COUGH 04-09-2017 [facility] R0602 SHORTNESS 04-09-2017 [facility] R0902 HYPOXEMIA 04-09-2017 [facility] R61 GENERALIZED 04-09-2017 [facility] HYPERHIDROS SERVICE IS J301 ALLERGIC 03-30-2017 [...] OTHER 03-22-2017 [facility] K98063 OTHER LONG 03-22-2017 [facility] CURRENT INC DRUG THERAPY J449 CHRONIC 03-17-2017 [facility] PULMONARY [place] DISEASE UNS J4550 SEVERE 03-17-2017 [facility] [place] UNCOMPLICAT ED X40762 UNSPECIFIED 03-10-2017 [facility] ED I10 ESSENTIAL 01-01-2017 [facility], HYPERTENSIO PLLC N L509 URTICARIA 01-01-2017 [facility], PLLC E119 TYPE 2 12-23-2016 [facility]ES [facility] MELLITUS INC WITHOUT COMPLICATIO NS [id number] ANGIONEUROT 12-23-2016 [facility] IC EDEMA [facility], INITIAL PLLC ENCOUNTER Z720 TOBACCO USE 12-23-2016 [facility] N32684 UNSPECIFIED 07-31-2016 A Jose GARCIA [facility] WITH ACUTE EXACERBATIO N J209 ACUTE 07-28-2016 [facility] UNSPECIFIED [facility]PITAL P J440 COPD WITH 07-28-2016 [facility] P RESPIRATORY INFECTION J441 CHRONIC 11-12-2015 [facility]CTIVE [facility] PULMONARY INC DZ W/EXACERBAT ION M545 LOW BACK 11-12-2015 [facility] PAIN [facility] INC R0600 DYSPNEA 11-12-2015 [facility] R1032 LEFT LOWER 11-12-2015 [facility] E35821 PAIN IN 04-30-2015 [facility] E1141 TYPE 2 04-25-2015 [facility] PODI[facility] MELLITUS W/DIAB MONONEUROPA THY V93065 SPONTANEOUS 04-25-2015 [facility] RUPTURE [facility]ODIATRY FLEXOR TENDONS LT ANKLE FOOT E93662 PAIN IN 04-25-2015 [facility] LEFT FOOT PODIATRY B353 TINEA PEDIS 04-23-2015 [facility] 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 INC S 68931 OBSTRUCTIVE 03-12-2015 [facility] 43825 ASTHMA, 03-06-2015 [facility] UNSPECIFIED STATUS 59965 DIAB W/O 02-27-2015 [facility] TYPE MEDICAL II/UNS TYPE EQUIPME UNCNTRL 4019 UNSPECIFIED 12-30-2014 [facility] ESSENTIAL [facility] HYPERTENSIO INC N 486 PNEUMONIA, 12-30-2014 [facility] ORGANISM [facility] UNSPECIFIED INC 496 CHRONIC 12-30-2014 [facility] OBSTRUCTION INC NEC 06945 SHORTNESS 12-30-2014 [facility] 7862 COUGH 12-30-2014 [facility] 63500 CHEST PAIN 12-06-2014 [facility] 12060 ABDOMINAL 10-19-2014 [facility] PAIN, MEDICAL UNSPECIFIED IMAGING ASS SITE 5180 PULMONARY 04-19-2014 [facility] 56723 PAINFUL 02-21-2014 [facility] RESPIRATION 05981 ASTHMA 10-09-2013 ERIC YOUNGER UNSPECIFIED WITH EXACERBATIO N 58396 WHEEZING 10-09-2013 [facility] V140 PERSONAL 10-09-2013 [facility] HISTORY OF [facility] TO [facility] P P[place] 3804 IMPACTED 06-12-2013 [facility] EMERGENCY [facility] 14761 OTHER 10-04-2012 [facility] NONSPECIFIC MEDICAL ABNORMAL [facility]ING ASS FINDING OF LUNG FIELD 96440 OBSTRUCTIVE 09-25-2012 [facility]RONIC [facility] BRONCHITIS HOSPITAL P WITH EXACERBATIO N 7231 [...] DISTURBANCE 11-26-2011 TALMANSOORW ROL OF SKIN SENSATION 89099 OTHER 10-10-2009 Royal LUNA D[place]SP[place] [address] HIGH 10-03-2009 DERICK CAMPBELL [facility] 91769 EXTRINSIC 10-03-2009 DERICK CAMPBELL ASTHMA, UNSPECIFIED V472 OTHER 10-03-2009 DERICK CAMPBELL CARDIORESPI RATORY PROBLEMS V0481 NEED 04-23-2009 [facility] PROPHYLACTSONY Mercado JR VACCINATION &INOCULATIO N FLU 48411 OTHER 04-15-2009 [facility] DISEASES OF (P1017) LUNG NOT UNIV RADIOL ELSEWHERE ASSOC CLASSIFIED 33103 ACUTE 04-15-2009 EVGENY ALEXIS BRONCHOSPSTEFFEN Guerra 89561 PAIN IN 11-05-2008 [facility] JOINT, (P1017) ANKLE AND UN[facility] RADIOL FOOT ASSOC 21120 UNSPECIFIED 11-05-2008 SANDI, SITE OF LIYA Guerra ANKLE SPRAIN AND STRAIN E8888 OTHER FALL 11-05-2008 LIYA JUNIOR 1629 MALIGNANT 05-06-2008 [facility], NEOPLASM INC BRONCHUS&EVON NG UNSPEC SITE 61403 OBST 04-27-2008 [facility] CHRONIC SONY SCHREIBER BRONCHITIS W/ACUTE BRONCHITIS 39830 UNSPECIFIED 11-23-2007 [facility] SLEEP OF [facility] 42035 OTHER 11-23-2007 DANIELS MALAISE AND OF FATIGUE [facility] 7840 HEADACHE 11-23-2007 [facility] 7806 FEVER & OTH 08-10-2007 IVANA [...] End Date Code Location Performer Type Date [facility] JASON - 7 7 [facility] JASON - 7 7 [facility] JASON - 7 7 [facility] J[facility] - 7 7 [facility] - 6 6 [facility] - 5 5 [facility] - 5 5 [facility] - 5 5 [facility] - 3 3 [facility] - 2 2 [facility] - 2 2 [facility] - 2 2 [facility] - 1 1 [facility] - 1 1 [facility] - 0 0 [facility] - 0 0 Y OF [facility] UN[facility]ERS[facility] - 0 0 Y OF [facility] UNIVERSIT - 9 9 Y [facility] UNIVERSIT - 8 8 Y OF [facility] UNIVERSIT - 8 8 Y OF [facility]
--- OUTSIDE RECORDS SUMMARY | 2017-05-11 21:14 | External Medical Summary Rpt ---
Author Author SAMIR Helms, SAMIR Production Organization [employer] Address Unknown Phone Unavailable Results CBC W Auto Differential panel in Blood Observa Value Referen Units Interpr Notes Date tion ce etation Range Basophils 0 - 0.2 K/MM3 Normal No May 11 informati 2016 8:15 [#/volume on in PM ] in source Blood by data Automated count Basophils 0.1 - 2.0 % Normal No May 11 / informati 2016 8:15 leukocyte on in PM s in source Blood by data Automated count Eosinophi 0.0 - 0.4 K/mm3 High No May 11 ls informati 2016 8:15 [#/volume on in PM ] in source Blood by data Automated count Eosinophi 0.1 - % Normal No May 11 ls/100 12.0 informati 2016 8:15 leukocyte on in PM s in source Blood by data Automated count Granulocy 1.3 - 8.0 K/mm3 Normal No May 11 viviana informati 2017 8:15 [#/volume on in PM ] in source Blood by data Automated count Granulocy 37.0 - % Normal No May 11 viviana/100 80.0 informati 2016 8:15 leukocyte on in PM s in source Blood by data Automated count Hematocri 42.0 - % Normal No May 11 t [Volume 52.0 informati 2016 8:15 on in PM Fraction] source of Blood data Hemoglobi 14.1 - g/dL Normal No May 11 n 18.0 informati 2016 8:15 [Mass/vol on in PM ume] in source Blood data Lymphocyt 0.7 - 4.5 K/mm3 Normal No May 11 es informati 2016 8:15 [#/volume on in PM ] in source Unspecifi data ed specimen by Automated count Lymphocyt 10 - 50 % Normal No May 11 es informati 2016 8:15 [#/volume on in PM ] in source Unspecifi data ed specimen by Automated count Erythrocy 27 - 31.2 pg Normal No May 11 te mean informati 2016 8:15 corpuscul on in PM ar source hemoglobi data n [Entitic mass] Erythrocy 31.8 - g/dl Normal No May 11 te mean 35.4 informati 2016 8:15 corpuscul on in PM ar source hemoglobi data n concentra tion [Mass/vol ume] by Automated count Erythrocy 82.2 - fl Normal No May 11 te mean 97.8 informati 2016 8:15 corpuscul on in PM ar volume source [Entitic data volume] by Automated count Monocytes 0.1 - 1.0 K/mm3 Normal No May 11 informati 2016 8:15 [#/volume on in PM ] in source Blood by data Automated count Monocytes 1.7 - 9.3 % Normal No May 11 informati 2016 8:15 leukocyte on in PM s in source Blood by data Automated count Platelet 7.4 - fl Normal No May 11 mean 10.4 informati 2016 8:15 volume on in PM [Entitic source volume] data in Blood by Automated count Platelets 142 - 424 K/mm3 Normal No May 11 informati 2016 8:15 [#/volume on in PM ] in source Blood data Erythrocy 4.6 - 6.2 M/mm3 Normal No May 11 viviana informati 2016 8:15 [#/volume on in PM ] in source Amniotic data fluid Erythrocy 11.5 - % Normal No May 11 te 17.5 informati 2016 8:15 distribut on in PM ion width source [Entitic data volume] by Automated count Leukocyte 4.8 - K/MM3 Normal No May 11 s 10.8 informati 2016 8:15 [#/volume on in PM ] in source Blood data CBC W Auto Differential panel in Blood [...] Eosinophi 0.1 - % Normal No Apr 09/100 12.0 informati 2017 7:55 leukocyte on in AM s in [...] - 9.3 % Normal No Apr 09 / informati 2017 7:55 leukocyte on in AM s in [...] Range [facility] MISC TEST ALPHA GAL PANEL 046825 AND CU INDEX 288617 SEE SEPARATE REPORT FOR NORMAL VALUES AND/OR [...] 46 - 116 U/L Normal No Mar 22 phosphata informati 2016 se on in 10:43 AM [Enzymati source c data activity/ volume] in Serum or Plasma Bilirubin 0.2 - 1.0 mg/dL Normal No Mar 22 .total informati 2016 [Mass/vol on in 10:43 AM ume] in source Serum or data Plasma Urea 7 - 18 mg/dL Normal No Mar 22 nitrogen informati 2016 [Mass/vol on in 10:43 AM ume] in source Serum or data Plasma Calcium 8.5 - mg/dL Normal No Mar 22 [Mass/vol 10.1 informati 2016 ume] in on in 10:43 AM Serum or source Plasma data Chloride 98 - 107 mmoL/L Normal No Mar 22 [Moles/vo informati 2016 lume] in on in 10:43 AM Serum or source Plasma data Carbon 21.0 - mmoL/L Normal No Mar 22 dioxide, 32.0 informati 2016 total on in 10:43 AM [Moles/vo source lume] in data Serum or Plasma Creatinin 0.70 - mg/dL Normal No Mar 22 e 1.30 inform2016 [Mass/vol on in 10:43 AM ume] in source Serum or data Plasma Estimated >60 ML/MIN No REFERENCE Mar 22 informati RANGE: 2017 glomerula on in >60 10:43 AM r source ML/MIN/1. filtratio data 73 SQUARE n rate METERSIf (GF this patient is -A merican, then multiply theresult by 1.210. Globulin 1.3 - 3.2 gm/dL Normal No Mar 22 [Mass/vol informati 2016 ume] in on in 10:43 AM Serum source data Glucose 74 - 106 mg/dL Normal No Mar 22 [Mass/vol informati 2016 ume] in on in 10:43 AM Serum or source Plasma data Potassium 3.5 - 5.1 mmoL/L Normal No Mar 222016 [Moles/vo on in 10:43 AM lume] in source Serum or data Plasma Sodium 136 - 145 mmoL/L Normal No Mar 22 [Moles/vo informati 2016 lume] in on in 10:43 AM Serum or source Plasma data Aspartate 15 - 37 U/L Low No Mar 222016 aminotran on in 10:43 AM sferase source [...] ng/dL Normal No Mar 22 (T4) 1.46 informati 2016 free on in 10:43 AM [Mass/vol source ume] in data Serum or Plasma Thyrotropin [Units/volume] in Serum or Plasma Observa Value Referen Units Interpr Notes Date tion ce etation Range Thyrotrop 0.358 - uIU/ml Normal No Mar 22 in 3.740 informati 2016 [Units/vo on in 10:43 AM lume] in source Serum or data Plasma CBC W Auto Differential panel in Blood Observa Value Referen Units Interpr Notes Date tion ce etation Range Basophils 0 - 0.2 K/MM3 Normal No Mar 22 inform2016 [#/volume on in 10:43 AM ] [...] % Normal No Mar 22 ls/100 12.0 inform2016 leukocyte on in 10:43 AM s in source Blood by data Automated count Granulocy 1.3 - 8.0 K/mm3 Normal No Mar 22 viviana inform2016 [#/volume on in 10:43 AM ] in source Blood by data Automated count Granulocy 37.0 - % Normal No Mar 22 viviana/100 80.0 inform2016 leukocyte on in 10:43 AM s in source Blood by data Automated count Hematocri 42.0 - % Normal No Mar 22 t [Volume 52.0 2016 on in 10:43 AM Fraction] source of Blood data Hemoglobi 14.1 - g/dL Normal No Mar 22 n 18.0 2016 [Mass/vol on in 10:43 AM ume] in source Blood data Lymphocyt 0.7 - 4.5 K/mm3 Normal No Mar 22 es informati 2016 [#/volume on in 10:43 AM ] in source Unspecifi data ed specimen by Automated count Lymphocyt 10 - 50 % Normal No Mar 22 es inform2016 [#/volume on in 10:43 AM ] in source Unspecifi data ed specimen by Automated count Erythrocy 27 - 31.2 pg Normal No Mar 22 te mean 2016 corpuscul on in 10:43 AM ar source hemoglobi data n [Entitic mass] Erythrocy 31.8 - g/dl Low No Mar 22 te mean 35.4 2016 corpuscul on in 10:43 AM ar source hemoglobi data n concentra tion [Mass/vol ume] by Automated count Erythrocy 82.2 - fl Normal No Mar 22 te mean 97.8 2016 corpuscul on in 10:43 AM ar volume source [Entitic data volume] by Automated count Monocytes 0.1 - 1.0 K/mm3 Normal No Mar 22 inform2016 [#/volume on in 10:43 AM ] in source Blood by data Automated count Monocytes 1.7 - 9.3 % Normal No Mar 22 /100 2016 leukocyte on in 10:43 AM s in source Blood by data Automated count Platelet 7.4 - fl Normal No Mar 22 mean 10.4 2016 volume on in 10:43 AM [Entitic source volume] data in Blood by Automated count Platelets 142 - 424 K/mm3 Normal No Mar 222016 [#/volume on in 10:43 AM ] in source Blood data Erythrocy 4.6 - 6.2 M/mm3 Normal No Mar 22 viviana inform2016 [#/volume on in 10:43 AM ] in source Amniotic data fluid Erythrocy 11.5 - % Normal No Mar 22 te 17.5 2016 distribut on in 10:43 AM ion width source [Entitic data volume] by Automated count Leukocyte 4.8 - K/MM3 Normal No Mar 22 s 10.8 2016 [#/volume on in 10:43 AM ] in source Blood data
--- OUTSIDE RECORDS SUMMARY | 2017-05-11 21:14 | External Medical Summary Rpt | CCD ---
Author Author , SAMIR DAWSON Address Unknown Phone [email or web address] Immunization Name Date Rout CVX Reac Dose Comm Prov Is Faci e tion ent ider Refu lity Give sed n PPV2 05-2 33 999 Hist D203 No D203 3 0-20 oric 45 45 16 al Info rmat ion - Sour ce Unsp ecif ied
--- OUTSIDE RECORDS SUMMARY | 2017-05-11 21:14 | External Medical Summary Rpt ---
[...] Range [facility] MISC TEST ALPHA GAL PANEL 332659 AND CU INDEX 209203 SEE SEPARATE REPORT FOR NORMAL VALUES AND/OR [...]
--- OUTSIDE RECORDS SUMMARY | 2017-05-11 21:14 | External Medical Summary Rpt | CCD ---
Author Author , SAMIR DAWSON Address Unknown Phone [email or web address] Immunization Name Date Rout CVX Reac Dose Comm Prov Is Faci e tion ent ider Refu lity Give sed n PPV2 05-2 33 999 Hist D203 No D203 3 0-20 oric 45 45 16 al Info rmat ion - Sour ce Unsp ecif ied
[2017-05-11 21:38] VITALS: BP 108/70
--- NOTE | 2017-05-12 05:31 | RADIOLOGY REPORT PS360 ---
CHEST(2 VIEWS-NOT PORTABLE) HISTORY: HEART FLUTTERING SENSATIONS ORDERING PHYSICIAN: Harsh Swanson MD PATIENT AGE: 47 years COMPARISON: 04/09/2017 FINDINGS: The cardiomediastinal silhouette and pulmonary vascularity are within normal limits. The lungs are clear without infiltrates, suspicious nodules, or pleural effusions. No acute bony abnormalities. Right-sided pericardial fat pad noted. There is increased density along the posterior chest on the lateral view felt to be related to overlying scapula IMPRESSION: No change with no acute finding
== END 2017-05-11 21:40 | disposition home or self-care (01) ==
LOC: ER 20:21
PROVIDERS: Emergency Medicine
DX: R00.2 Palpitations (principal); E11.9 Type 2 diabetes mellitus without complications; F17.210 Nicotine dependence, cigarettes, uncomplicated; J44.9 Chronic obstructive pulmonary disease, unspecified; I10 Essential (primary) hypertension; Z88.0 Allergy status to penicillin

== ENCOUNTER 2017-05-13 17:55 | Emergency (ER) | payer MEDICARE, MEDICAID ==
[~2017-05-13] VITALS: Ht 154.9 cm; Wt 133.8 kg
--- OUTSIDE RECORDS SUMMARY | 2017-05-13 18:17 | External Medical Summary Rpt | Continuity of Care Document ---
Author Author Organization Address Unknown Phone Unavailable Care Team Providers Care Night Coordinator Name Role Phone , Unavailable Unavailable EMS Current Medications Section EMS Allergies and Adverse Reactions EMS Past Medical History Medications Administered Section EMS Procedures Performed EMS Vital Signs EMS Patient Care Report Narrative H911 IMMEDIATE RESPONSE TO [facility] BAKER FOR A MALE WITH HEART PALPITATIONS. UPON ARRIVAL TO PT HE WAS STANDING ON HIS PORCH. PT WAS 4-5-6, SKIN W/D, PINKY, L/S C=. PT CO HAVING A FLUTTERING SENSATION IN HIS CHEST ON AND OFF REINA, BUT HE CURRENTLY DOES NOT HAVE THAT SENSATION. PT DENIED ANIY PAIN. LOADED PT ONTO COT AND THEN INTO THE AMBULANCE. OBTAINED V/S, GROUP SALES REPRESENTATIVE & 12 LEAD - NSR, BGS - 99, 18G LOCK LT AC, BLOOD DRAW AND MONITORED PT EN ROUTE TO [facility] ER. TRANSPORT WITHOUT INCIDENT. PT REQUIRED TRANSPORT DUE TO REQUIRING CARDIAC MONITORING DUE TO FLUTTERING SENSATION IN HIS CHEST. REPORT AND CARE GIVEN TO SECRETARY ADMINISTRATIVE ASSISTANT. LAVERN ROMAN.
--- OUTSIDE RECORDS SUMMARY | 2017-05-13 18:17 | External Medical Summary Rpt | Continuity of Care Document ---
Author Author Organization Address Unknown Phone Unavailable Care Team Providers Care Works Manager Name Role Phone , Unavailable Unavailable EMS [...] AND THEN INTO THE AMBULANCE. OBTAINED V/S, OUTSIDE RIGGER & 12 LEAD - NSR, BGS - 99, 18G LOCK LT AC, BLOOD DRAW AND MONITORED PT EN ROUTE TO [facility] ER. TRANSPORT WITHOUT INCIDENT. PT REQUIRED TRANSPORT DUE TO REQUIRING CARDIAC MONITORING DUE TO FLUTTERING SENSATION IN HIS CHEST. REPORT AND CARE GIVEN TO HEAVY THREADER. LAVERN ROMAN.
[2017-05-13 18:21] LABS: HEMOGLOBIN 16.1 g/dL (14.1-18.0); LYMPH # 2.6 K/mm3 (0.7-4.5); LYMPH % 30.1 % (10-50)
--- OUTSIDE RECORDS SUMMARY | 2017-05-13 18:21 | External Medical Summary Rpt | CCD ---
Author Author , SAMIR DAWSON Address Unknown Phone [email or web address] Care Team Providers Care Java Portal Developer Name Role Phone A Jose GARCIA MD P[facility], A Unavailable Unavailable Jose GARCIA MD PSC [facility] Unavailable Unavailable [place], [facility] [facility] DOMENICA, Unavailable Unavailable [facility] LIYA JUNIOR, Unavailable Unavailable LIYA JUNIOR [facility] Unavailable Unavailable SERVICE, [facility] Royal LUNA, Royal LUNA Unavailable Unavailable TITO CRISTOBAL, TITO Unavailable Unavailable LEVAR [facility] Unavailable Unavailable INC, [facility] Un[facility] Un[facility], [facility] Un[facility] Un[facility], [facility] SHEA, IVANA Sanchez, , Unavailable Unavailable IVANA G [facility], Unavailable Unavailable [facility] LUTZ TRA, LUTZ TRA Unavailable Unavailable Harsh Swanson MD, Unavailable Unavailable Harsh Swanson MD [facility] Unavailable Unavailable SERVICES, [facility] EVGENY ALEXIS MD, Unavailable Unavailable MD [facility] Unavailable Unavailable PLL[facility], [facility], [facility] DERICK SHANNAN, DERICK SHANNAN Unavailable Unavailable SONY MAYORGA JR, Unavailable Unavailable SONY MAYORGA JR, Unavailable Unavailable FREDERICK NGUYEN [facility], [facility]available Unavailable [facility] Unavailable Unavailable EQUIPME, [facility] TALANOW ROL, TALANOW Unavailable Unavailable ROL BOB AVA, BOB AVA Unavailable Unavailable [facility] Unavailable Unavailable [facility] Unavailable Unavailable [facility], [facility] WEHRBLAYNE III MONICA, Unavailable Unavailable WEHRMAN III ERIC WAGGONER Unavailable Unavailable Dong Self Unavailable Unavailable III MD, Dong Self III, MD [facility], Unavailable Unavailable [facility] Purpose Continuity of Care Document - 08-10-2007 through 2016 Problems Code Diagnosis DOS Provider Status R05 COUGH 04-09-2017 [facility] R0602 SHORTNESS 04-09-2017 [facility] R0902 HYPOXEMIA 04-09-2017 [facility] R61 GENERALIZED 04-09-2017 [facility] HYPERHIDROS SERVICE IS J301 ALLERGIC 03-30-2017 [...] OTHER 03-22-2017 [facility] T12307 OTHER LONG 03-22-2017 [facility] CURRENT INC DRUG THERAPY J449 CHRONIC 03-17-2017 [facility] PULMONARY [place] DISEASE UNS J4550 SEVERE 03-17-2017 [facility] UNCOMPLICAT ED G23720 UNSPECIFIED 03-10-2017 [facility]COMPLIC[facility] ED I10 ESSENTIAL 01-01-2017 [facility] HYPERTENSIO PLLC N L509 URTICARIA 01-01-2017 [facility], PLLC E119 TYPE 2 12-23-2016 [facility]ES [facility] MELLITUS INC WITHOUT COMPLICATIO NS F854TUZ ANGIONEUROT 12-23-2016 [facility] IC EDEMA [facility], INITIAL PLLC ENCOUNTER Z720 TOBACCO USE 12-23-2016 [facility] S67117 UNSPECIFIED 07-31-2016 Vonda GARCIA [facility] WITH ACUTE EXACERBATIO N J209 ACUTE 07-28-2016 [facility] P J440 COPD WITH 07-28-2016 [facility] RESPIRATORY INFECTION J441 CHRONIC 11-12-2015 [facility]CTIVE [facility] PULMONARY INC DZ W/EXACERBAT ION M545 LOW BACK 11-12-2015 [facility] PAIN [facility] R0600 DYSPNEA 11-12-2015 [facility] R1032 LEFT LOWER 11-12-2015 [facility] F76953 PAIN IN 04-30-2015 [facility]NEE [facility] E1141 TYPE 2 04-25-2015 [facility] MELLITUS W/DIAB MONONEUROPA THY D98587 SPONTANEOUS 04-25-2015 [facility] RUPTURE [facility]ODI[facility] FLEXOR TENDONS LT ANKLE FOOT A18157 PAIN IN 04-25-2015 [facility] LEFT FOOT PODIATRY B353 TINEA PEDIS 04-23-2015 [facility] 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 INC S 21996 OBSTRUCTIVE 03-12-2015 [facility] 40788 ASTHMA, 03-06-2015 [facility] UNSPECIFIED STATUS 61988 DIAB W/O 02-27-2015 [facility] COMP TYPE MEDICAL II/UNS TYPE EQUIPME UNCNTRL 4019 UNSPECIFIED 12-30-2014 [facility] ESSENTIAL [facility] HYPERTENSIO INC N 486 PNEUMONIA, 12-30-2014 [facility] ORGANISM [facility] UNSPECIFIED INC 496 CHRONIC 12-30-2014 [facility] AIRWAY [facility] OBSTRUCTION INC NEC 10004 SHORTNESS 12-30-2014 [place] [facility] 7862 COUGH 12-30-2014 [facility] 63741 CHEST PAIN 12-06-2014 [facility] 79281 ABDOMINAL 10-19-2014 [place] PAIN, MEDICAL UNSPECIFIED IMAGING ASS SITE 5180 PULMONARY 04-19-2014 [facility]SE [facility] 48127 PAINFUL 02-21-2014 [facility] RESPIRATION 55375 ASTHMA 10-09-2013 ERIC YOUNGER UNSPECIFIED WITH EXACERBATIO N 11366 WHEEZING 10-09-2013 [facility] V140 PERSONAL 10-09-2013 [facility] H[facility]ORY OF [facility] ALLERGY TO [facility] P PENICILLIN 305.1 305.1 06-12-2013 Jason TOBACCO USE [facility] 380.4 380.4 06-12-2013 Jason IMPACTED [facility] 3804 IMPACTED 06-12-2013 [facility] 401.9 401.9 06-12-2013 [facility] N NOS Hospital 31178 OTHER 10-04-2012 [place] NONSPECIFIC MEDICAL ABNORMAL [facility] FINDING OF LUNG FIELD 491.21 491.21 09-25-2012 [facility] BRONCHITIS, W (ACUTE) EXACERBATIO N 96610 OBSTRUCTIVE 09-25-2012 [facility] P WITH EXACERBATIO N 493.90 493.90 09-25-2012 [facility] UNSPECIFIED Hospital 7231 CERVICALGIA 04-07-2012 [facility] LOCH DOMENICA 7241 PAIN IN 04-07-2012 [facility] THORACIC LOCH DOMENICA SPINE 462 ACUTE 02-25-2012 WEHRMAN III PHARYNGITIS MONICA 4660 ACUTE 01-21-2012 [facility] 3360 SYRINGOMYEL 01-07-2012 BOB AVA IA AND SYRINGOBULB IA 7245 UNSPECIFIED 12-31-2011 MACK BACKACHE WENDY 7812 ABNORMALITY 12-31-2011 [facility] OF GAIT LOCH DOMENICA 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 7820 DISTURBANCE 11-26-2011 TALANOW ROL OF SKIN SENSATION 84621 OTHER 10-10-2009 Royal LUNA [place] [address] HIGH 10-03-2009 DERICK SHANNAN ALTITUDE PERIODIC BREATHING 26185 EXTRINSIC 10-03-2009 DERICK SHANNAN ASTHMA, UNSPECIFIED V472 OTHER 10-03-2009 DERICK SHANNAN CARDIORESPI RATORY PROBLEMS V0481 NEED 04-23-2009 [facility]ERRA PROPHYLSONY MONROY JR VACCINATION &INOCULATIO N FLU 73951 OTHER 04-15-2009 [facility] DISEASES OF (P1017) LUNG NOT UNIV RADIOL ELSEWHERE ASSOC CLASSIFIED 84913 ACUTE 04-15-2009 EVGENY ALEXIS BRONCHBERNA LANDAVERDE M 02227 PAIN IN 11-05-2008 [facility] JOINT, (P1017) ANKLE AND UNIV RADIOL FOOT ASSOC 49096 UNSPECIFIED 11-05-2008 SANDI, SITE OF LIYA Guerra ANKLE SPRAIN AND STRAIN E8888 OTHER FALL 11-05-2008 SANDILIYA 1629 MALIGNANT 05-06-2008 [facility], NEOPLASM INC BRONCHUS&EVON NG UNSPEC SITE 91313 OBST 04-27-2008 SONY MEADE JR BRONCHITIS W/ACUTE BRONCHITIS 84561 UNSPECIFIED 11-23-2007 [place] [facility]NEA [facility] 87005 OTHER 11-23-2007 [facility] OF FATIGUE [facility] 7840 HEADACHE 11-23-2007 [facility] 7806 FEVER & OTH 08-10-2007 IVANA VALDIVIA [...] FIBROMATOSI S M79.672 PAIN IN LEFT FOOT R00.2 PALPITATION S R07.81 PLEURODYNIA R07.9 CHEST PAIN, UNSPECIFIED T14.8 OTHER INJURY OF UNSPECIFIED BODY REGION T14.8XXA OTHER INJURY OF UNSPECIFIED BODY REGION, INITIAL ENCOUNTER T78.3XXA ANGIONEUROT IC EDEMA, INITIAL ENCOUNTER Z72.0 TOBACCO USE Z79.899 OTHER LONG-TERM (CURRENT) DRUG THERAPY Allergies, Adverse Reactions, Alerts [...] Order Detail nces retati t Range on Cardiac enzymes (05-11-2017 20:15) Serum = 0.5 0-4.0 complet or 017 U/L ed plasma 20:15 creatin e kinase MB (CK-M Serum = 1.3 0.0-3.6 complet or 017 ng/mL ed plasma 20:15 creatin e kinase MB measu Serum = 273 39-308 complet or 017 U/L ed plasma 20:15 creatin e kinase measure m Serum < 0.02 0.00-0. complet or 017 ng/mL 06 ed plasma 20:15 troponi n i.cardi ac measu Thyroxine (05-11-2017 20:15) Thyroxi = 7.4 4.7-13. complet ne 017 ug/dl 3 ed 20:15 Serum or plasma thyroid stimulating horm (05-11-2017 20:15) Serum = 5.77 0.358-3 complet or 017 uIU/ml .740 ed plasma 20:15 thyroid stimula ting horm Comprehensive metabolic panel (05-11-2017 20:15) Serum = 13 7-18 complet or 017 mg/dL ed plasma 20:15 urea nitroge n measure men Protein = 7.6 6.4-8.2 complet total 017 gm/dL ed ser/craig 20:15 s ALT = 34 12-78 complet (SGPT) 017 U/L ed ser/craig 20:15 s Serum = 20 15-37 complet or 017 U/L ed plasma 20:15 asparta te aminotr ansfera Serum = 142 136-145 complet sodium 017 mmoL/L ed measure 20:15 ment Serum = 4.1 3.5-5.1 complet potassi 017 mmoL/L ed um 20:15 measure ment Serum = 87 74-106 complet or 017 mg/dL ed plasma 20:15 glucose measure ment (mas Serum = 3.5 1.3-3.2 complet globuli 017 gm/dL ed n 20:15 measure ment (mass/v olume) Estimat = 80 >60 complet ed 017 ML/MIN ed glomeru 20:15 lar filtrat ion rate (GF Comment: REFERENCE RANGE: >60 ML/MIN/1.73 SQUARE METERS Comment: If this patient is -Ivorian, then multiply the Comment: result by 1.210. Estimat = 174 50-200 complet ion of 017 ML/MIN ed creatin 20:15 ine renal clearan ce Serum = 1.0 0.70-1. complet or 017 mg/dL 30 ed plasma 20:15 creatin ine measure ment ( Carbon = 30 21.0-32 complet dioxide 017 mmoL/L .0 ed 20:15 measure ment Serum = 103 98-107 complet or 017 mmoL/L ed plasma 20:15 chlorid e measure ment (mo Serum = 9.7 8.5-10. complet or 017 mg/dL 1 ed plasma 20:15 calcium measure ment (mas Serum = 1.0 0.2-1.0 complet or 017 mg/dL ed plasma 20:15 total bilirub in measure m Serum = 70 46-116 complet or 017 U/L ed plasma 20:15 alkalin e phospha tase patti Serum = 4.1 3.4-5.0 complet or 017 gm/dL ed plasma 20:15 albumin measure ment (mas Serum = 1.2 1.1-1.8 complet or 017 ed plasma 20:15 albumin /globul in mass ra CBC w auto diff (05-11-2017 20:15) Red = 5.57 4.6-6.2 complet blood 017 M/mm3 ed cell 20:15 count Blood = 273 142-424 complet platele 017 K/mm3 ed t count 20:15 Automat = 8.4 7.4-10. complet ed 017 fl 4 ed blood 20:15 platele t mean volume patti [place] % = 5.2 % 1.7-9.3 complet 017 ed 20:15 Absolut = 0.5 0.1-1.0 complet e 017 K/mm3 ed monocyt 20:15 e count Automat = 89.5 82.2-97 complet ed 017 fl .8 ed erythro 20:15 cyte mean corpusc ular v Automat = 33.1 31.8-35 complet ed 017 g/dl .4 ed erythro 20:15 cyte mean corpusc ular h Mean = 29.7 27-31.2 complet corpusc 017 pg ed ular 20:15 hemoglo bin (MCH) determ Lymphoc = 35.8 10-50 complet yte 017 % ed count, 20:15 blood, automat ed Absolut = 3.4 0.7-4.5 complet e 017 K/mm3 ed lymphoc 20:15 yte count Blood = 16.5 14.1-18 complet hemoglo 017 g/dL .0 ed bin 20:15 measure ment (mass/v olum Blood = 49.9 42.0-52 complet hematoc 017 % .0 ed rit 20:15 (volume fractio n) Granulo = 51.5 37.0-80 complet cyte 017 % .0 ed percent 20:15 age Blood = 4.9 1.3-8.0 complet granulo 017 K/mm3 ed cytes 20:15 automat ed count (numb Automat = 6.9 % 0.1-12. complet ed 017 0 ed blood 20:15 eosinop hils/10 0 leukocy t Automat = 0.7 0.0-0.4 complet ed 017 K/mm3 ed blood 20:15 eosinop hil count Baso % = 0.6 % 0.1-2.0 complet 017 ed 20:15 Automat = 0.1 0-0.2 complet ed 017 K/MM3 ed blood 20:15 basophi l count (count/ vo Blood = 9.5 4.8-10. complet leukocy 017 K/MM3 8 ed viviana 20:15 count (number /volume ) Automat = 13.0 11.5-17 complet ed 017 % .5 ed erythro 20:15 cyte distrib ution width Serum or plasma troponin i.cardiac measu (04-09-2017 07:55) Serum 2 < 0.02 0.00-0. complet or 017 ng/mL [...] SQUARE METERS Comment: If this patient is -Ivorian, then multiply the Comment: result by 1.210. [...] cytes 07:55 automat ed count (numb Automat 10-27-2 = 8.1 % 0.1-12. complet ed 017 0 ed blood 07:55 eosinop hils/10 0 leukocy t Automat 2 = 0.7 0.0-0.4 complet ed 017 K/mm3 ed blood 07:55 eosinop hil count Automat 2 = 0.1 0-0.2 complet ed 017 K/MM3 [...] blood 07:55 platele t mean volume patti [place] % = 6.6 % 1.7-9.3 complet 017 ed 07:55 Absolut = 0.6 0.1-1.0 complet e 017 K/mm3 ed monocyt 07:55 e count Baso % = 1.1 % 0.1-2.0 complet 017 ed 07:55 Serum or plasma 25-hydroxyvitamin D federico (03-22-2017 10:43) Serum = 10.0 30.0-10 complet or 017 ng/mL 0.0 ed plasma 10:43 25-hydr oxyvita min D federico Comment: Vitamin D deficiency has been defined by the [place] of Comment: Medicine and an Endocrine Society practice guideline as a Comment: level of serum 25-OH vitamin D less than 20 ng/mL (1,2). Comment: The Endocrine Society went on to further define vitamin D Comment: insufficiency as a level between 21 and 29 ng/mL (2). Comment: 1. IOM ([place] of Medicine). 2010. Dietary reference Comment: intakes for calcium and D. Eng DC: The Comment: [employer]. Comment: 2. Shanon MF, [place], Ger [place], et al. Comment: Evaluation, treatment, and prevention of vitamin D Comment: deficiency: an Endocrine Society clinical practice Comment: guideline. JCEM. 2010; 96(7):1911-30. Serum thyroperoxidase antibody assay (03-22-2017 10:43) Serum = 12 0-34 complet thyrope 017 IU/mL ed roxidas 10:43 e antibod y assay Comment: Performed at: [facility] Comment: [id number] [place], [place] [id number] Comment: Internet Programmer: Merlin Castaneda PhD, Phone: [phone] Serum or plasma thyroglobulin antibody a (03-22-2017 10:43) Serum < 1.0 0.0-0.9 complet or 017 IU/mL ed plasma 10:43 thyrogl obulin antibod y a Comment: Thyroglobulin Antibody measured by Giovanna [place] Comment: Methodology Comment: Performed at: [facility] Comment: [id number] [place], [place] [id number] Comment: Internet Programmer: Merlin Castaneda PhD, Phone: [phone] Serum or plasma IgE measurement (units/v (03-22-2017 10:43) Serum = 1223 0-100 complet or 017 IU/mL ed plasma 10:43 IgE measure ment (units/ v Comment: Performed at: [facility] Comment: [id number] [place], [place] [id number] Comment: Internet Programmer: Merlin Castaneda PhD, Phone: [phone] Antinuclear Antibodies, IFA (03-22-2017 10:43) Serum = . complet nuclear 017 Negativ ed 10:43 e antibod y titer by immunof l Comment: Negative <1:80 Comment: Borderline 1:80 Comment: Positive >1:80 Comment: Performed at: [facility] Comment: [id number] [place], [place] [id number] Comment: Internet Programmer: Merlin Castaneda PhD, Phone: [phone] CBC w auto diff (03-22-2017 10:43) Blood = 242 142-424 complet platele 017 K/mm3 ed t count 10:43 Automat = 9.6 7.4-10. complet ed 017 fl 4 ed blood 10:43 platele t mean volume patti [place] % = 5.1 % 1.7-9.3 complet 017 [...] with AUTO DIFF (09-25-2012 10:15) WBC # 14-2 8.3 4.8-10. complet Bld 013 K/MM3 8 ed Auto 10:15 RBC # 09-25- 5.38 4.6-6.2 complet Bld 013 M/mm3 ed Auto 10:15 Hgb 04-14-2 15.9 14.1-18 complet Bld-mCn 013 g/dL .0 ed c 10:15 Hct Fr 2 48.5 % 42.0-52 complet Bld 013 .0 ed 10:15 MCV RBC 09-25-2 90.3 fl 82.2-97 complet 013 .8 ed 10:15 MCH RBC 09-25-2 29.5 pg 27-31.2 complet Qn 013 ed Auto 10:15 MEAN 2 32.7 31.8-35 complet CORPUSC 013 g/dl .4 ed ULAR 10:15 HGB CONC RDW RBC 09-25-2 14.1 % 11.5-17 complet Auto 013 .5 ed 10:15 Platele 09-25-2 281 142-424 complet t Bld 013 K/mm3 ed Ql 10:15 Manual MEAN 2 7.7 fl 7.4-10. complet PLATELE 013 4 ed T 10:15 VOLUME Granulo 14-2 47.6 % 37.0-80 complet cytes 013 .0 ed Fr Bld 10:15 Auto LYMPH % -14-2 38.9 % 10-50 complet 013 ed 10:15 Monocyt -14-2 5.2 % 1.7-9.3 complet es Fr 013 ed Bld 10:15 Auto Eosinop -14-2 7.8 % 0.1-12. complet hil Fr 013 0 ed Bld 10:15 Auto Basophi -14-2 0.5 % 0.1-2.0 complet ls Fr 013 ed Bld 10:15 Auto Granulo -14-2 4.0 1.3-8.0 complet cytes # 013 K/mm3 [...] End Date Code Location Performer Type Date [facility]ON - 7 7 [facility] - 7 7 [facility] - 7 7 [facility] - 6 6 [facility] - 5 5 [facility] - 5 5 [facility] - 5 5 [facility] Emergency JESSICA Swanson MD (ER) 3 06:43 3 07:24 [facility] Emergency JESSICA Mendoza (ER) 3 18:20 3 20:16 [facility] JESSICA Self (ER) 3 10:22 3 11:22 [facility] JASON - 3 3 [facility] 2 2 [facility] - 2 2 [facility] - 2 2 [facility] - 1 1 [facility] JASON - 1 1 [facility] UNIVERSIT - 0 0 Y OF OUTPATIEN NATA [facility] 07-12-201 07-12-201 UNIVERSIT - 0 0 Y OF [facility] UNIVERSIT - 0 0 Y OF [facility] UNIVERSIT - 9 9 Y OF [facility] UNIVERSIT - 8 8 Y OF [facility] UNIVERSIT - 8 8 Y OF [facility]
--- OUTSIDE RECORDS SUMMARY | 2017-05-13 18:21 | External Medical Summary Rpt | CCD ---
Author Author , SAMIR DAWSON Address Unknown Phone [email or web address] Care Team Providers Care Long Term Care Social Worker Name Role Phone A Jose GARCIA MD PSC, A Unavailable Unavailable Jose GARCIA MD PSC [facility] Unavailable Unavailable [place], [facility] [place] [facility]JEN[facility] DOMENICA, Unavailable Unavailable [facility] DOMENICA LIYA JUNIOR, Unavailable Unavailable LIYA JUNIOR [facility] Unavailable Unavailable SERVICE, [facility] Royal LUNA, Royal LUNA Unavailable Unavailable TITO CRISTOBAL, TITO Unavailable Unavailable [facility] Unavailable Unavailable INC, [facility] Unavailable Unavailable HOSPITAL P, [facility] Unavailable Unavailable IMAGING ASS, [facility] SHEA, IVANA Sanchez, , Unavailable Unavailable IVANA G [facility], Unavailable Unavailable [facility] LUTZ TRA, LUTZ TRA Unavailable Unavailable Harsh Swanson MD, Unavailable Unavailable Harsh Swanson MD [facility] Unavailable Unavailable SERVICES, [facility] EVGENY ALEXIS MD, Unavailable Unavailable MD [facility], Unavailable Unavailable PLLC, [facility], [facility] DERICK SHANNAN, DERICK SHANNAN Unavailable Unavailable SONY MAYORGA JR, Unavailable Unavailable SONY MAYORGA JR, Unavailable Unavailable FREDERICK NGUYEN [facility], Unavailable Unavailable [facility] Unavailable Unavailable EQUIPME, [facility] TALANOW ROL, TALANOW Unavailable Unavailable ROL BOB AVA, BOB AVA Unavailable Unavailable [facility] Unavailable Unavailable [facility], [facility] Unavailable Unavailable [facility], [facility] WEHRBLAYNE III MONICA, Unavailable Unavailable WEHRMAN III ERIC WAGGONER Unavailable Unavailable Dong Self Unavailable Unavailable III MD, Dong Self III, MD [facility], Unavailable Unavailable [facility] Purpose Continuity of Care Document - 08-10-2007 through 2016 Problems Code Diagnosis DOS Provider Status R05 COUGH 04-09-2017 [facility] R0602 SHORTNESS 04-09-2017 [facility] R0902 HYPOXEMIA [...] OTHER 03-22-2017 [facility] [id number] OTHER LONG 03-22-2017 [facility] CURRENT INC DRUG THERAPY J449 CHRONIC 03-17-2017 [facility] PULMONARY [place] DISEASE UNS J4550 SEVERE 03-17-2017 [facility] [place] UNCOMPLICAT ED P41640 UNSPECIFIED 03-10-2017 [facility] ED I10 ESSENTIAL 01-01-2017 [facility], HYPERTENSIO PLLC N L509 URTICARIA 01-01-2017 [facility] UNSPECIFIED PHYSICIANS, PLLC E119 TYPE 2 12-23-2016 [facility]ES [facility] MELLITUS INC WITHOUT COMPLICATIO NS R859LAT ANGIONEUROT 12-23-2016 [facility] IC EDEMA PHYSICIANS, INITIAL PLLC ENCOUNTER Z720 TOBACCO USE 12-23-2016 [facility] T91233 UNSPECIFIED 07-31-2016 Vonda GARCIA ASTHMA PSC WITH ACUTE EXACERBATIO N J209 ACUTE 07-28-2016 [facility]PITAL P J440 COPD WITH 07-28-2016 [facility] P RESPIRATORY INFECTION J441 CHRONIC 11-12-2015 [facility]CTIVE [facility] PULMONARY INC DZ W/EXACERBAT ION M545 LOW BACK 11-12-2015 [facility] PAIN [facility] INC R0600 DYSPNEA 11-12-2015 [facility] R1032 LEFT LOWER 11-12-2015 [facility] X06585 PAIN IN 04-30-2015 [facility] LEFT KNEE [facility] E1141 TYPE 2 04-25-2015 [facility] DIABETES PODIATRY MELLITUS W/DIAB MONONEUROPA THY M87526 SPONTANEOUS 04-25-2015 PROGRESSIVE RUPTURE PODIATRY FLEXOR TENDONS LT ANKLE FOOT S66430 PAIN IN 04-25-2015 PROGR[facility]IVE LEFT FOOT PODIATRY B353 TINEA PEDIS 04-23-2015 [facility] INC 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 INC S 60114 OBSTRUCTIVE 03-12-2015 [facility] 12436 ASTHMA, 03-06-2015 [facility] UNSPECIFIED STATUS 04378 DIAB W/O 02-27-2015 [facility] COMP TYPE MEDICAL II/UNS TYPE EQUIPME UNCNTRL 4019 UNSPECIFIED 12-30-2014 [facility] ESSENTIAL [facility] HYPERTENSIO INC N 486 PNEUMONIA, 12-30-2014 [facility]GANISM [facility] UNSPECIFIED INC 496 CHRONIC 12-30-2014 [facility] AIR[facility]AY [facility] OBSTRUCTION INC NEC 58765 SHORTNESS 12-30-2014 [facility] 7862 COUGH 12-30-2014 [facility] 51270 CHEST PAIN 12-06-2014 [facility] 95373 ABDOMINAL 10-19-2014 [facility] PAIN, MEDICAL UNSPECIFIED IMAGING ASS SITE 5180 PULMONARY 04-19-2014 [facility] COLL[facility]SE [facility] 39311 PAINFUL 02-21-2014 [facility] RESPIRATION 90099 ASTHMA 10-09-2013 ERIC YOUNGER UNSPECIFIED WITH EXACERBATIO N 60605 WHEEZING 10-09-2013 [facility] V140 PERSONAL 10-09-2013 [facility] HISTORY OF [facility] ALLERGY TO [facility] P PENICILLIN 305.1 305.1 06-12-2013 Jason TOBACCO USE [facility] 380.4 380.4 06-12-2013 Jason IMPACT[address] [facility] 3804 IMPACTED 06-12-2013 [facility] EMERGENCY SERVICES 401.9 401.9 06-12-2013 [facility] 37677 OTHER 10-04-2012 [facility] NONSPECIFIC MEDICAL ABNORMAL IMAGING ASS FINDING OF LUNG FIELD 491.21 491.21 09-25-2012 [facility] BRONCHITIS, W (ACUTE) EXACERBATIO N 55116 OBSTRUCTIVE 09-25-2012 [facility] P WITH EXACERBATIO N 493.90 493.90 09-25-2012 [facility] UNSPECIFIED Hospital 7231 CERVICALGIA 04-07-2012 [facility] LOCH DOMENICA 7241 PAIN IN 04-07-2012 [facility] THORACIC LOCH DOMENICA SPINE 462 ACUTE 02-25-2012 WEHRMAN III PHARYNGITIS MONICA 4660 ACUTE 01-21-2012 [facility] 3360 SYRINGOMYEL 01-07-2012 BOB AVA IA AND SYRINGOBULB IA 7245 UNSPECIFIED 12-31-2011 [facility] BACKACHE WENDY 7812 ABNORMALITY 12-31-2011 [facility] OF GAIT LOCH DOMENICA 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 7820 DISTURBANCE 11-26-2011 TALANOW ROL OF SKIN SENSATION 09821 OTHER 10-10-2009 Royal LUNA D[place]SPNE[place] [address] HIGH 10-03-2009 DERICK SHANNAN ALTITUDE PERIODIC BREATHING 40442 EXTRINSIC 10-03-2009 DERICK SHANNAN ASTHMA, UNSPECIFIED V472 OTHER 10-03-2009 DERICK SHANNAN CARDIORESPI RATORY PROBLEMS V0481 NEED 04-23-2009 [facility] PROPHYLSONY MONROY JR VACCINATION &INOCULATIO N FLU 21475 OTHER 04-15-2009 [facility] DISEASES OF (P1017) LUNG NOT UNIV RADIOL ELSEWHERE ASSOC CLASSIFIED 20090 ACUTE 04-15-2009 EVGENY ALEXIS BRONCHBERNA LANDAVERDE M 62481 PAIN IN 11-05-2008 [facility] JOINT, (P1017) ANKLE AND UNIV RADIOL FOOT ASSOC 54155 UNSPECIFIED 11-05-2008 SANDI, SITE OF LIYA Guerra ANKLE SPRAIN AND STRAIN E8888 OTHER FALL 11-05-2008 SANDILIYA 1629 MALIGNANT 05-06-2008 [facility], NEOPLASM INC BRONCHUS&EVON NG UNSPEC SITE 28268 OBST 04-27-2008 SONY MEADE JR BRONCHITIS W/ACUTE BRONCHITIS 33409 UNSPECIFIED 11-23-2007 [place] [facility] 59384 OTHER 11-23-2007 [facility] FAT[facility]UE [facility] 7840 HEADACHE 11-23-2007 [facility] 7806 FEVER & OTH 08-10-2007 [...] INITIAL ENCOUNTER Z72.0 TOBACCO USE Z79.899 OTHER [facility] (CURRENT) DRUG THERAPY Allergies, Adverse Reactions, Alerts [...] SQUARE METERS Comment: If this patient is -Bermudian, then multiply the Comment: result by 1.210. [...] blood 20:15 platele t mean volume patti Vernon % = 5.2 % 1.7-9.3 complet 017 [...] SQUARE METERS Comment: If this patient is -Bermudian, then multiply the Comment: result by 1.210. [...] blood 07:55 platele t mean volume patti Vernon % = 6.6 % 1.7-9.3 complet 017 [...] D deficiency has been defined by the Rowe of Comment: Medicine and an Endocrine Society practice guideline as a Comment: level of serum 25-OH vitamin D less than 20 ng/mL (1,2). Comment: The Endocrine Society went on to further define vitamin D Comment: insufficiency as a level between 21 and 29 ng/mL (2). Comment: 1. IOM (Rowe of Medicine). 2010. Dietary reference Comment: intakes for calcium and D. Eng DC: The Comment: [employer]. Comment: 2. Shanon MF, [place], Ger [place], et al. Comment: Evaluation, treatment, and prevention of vitamin D Comment: deficiency: an Endocrine Society clinical practice Comment: guideline. JCEM. 2010; 96(7):1911-30. Serum thyroperoxidase antibody assay (03-22-2017 10:43) Serum = 12 0-34 complet thyrope 017 IU/mL ed roxidas 10:43 e antibod y assay Comment: Performed at: [facility] Comment: [address] [place], [place] [id number] Comment: Speech Lang Path Therapist: Merlin Castaneda PhD, Phone: [phone] Serum or plasma thyroglobulin antibody a (03-22-2017 10:43) Serum < 1.0 0.0-0.9 complet or 017 IU/mL ed plasma 10:43 thyrogl obulin antibod y a Comment: Thyroglobulin Antibody measured by [employer] Comment: Methodology Comment: Performed at: [facility] Comment: [address] [place], [place] [id number] Comment: Speech Lang Path Therapist: Merlin Castaneda PhD, Phone: [phone] Serum or plasma IgE measurement (units/v (03-22-2017 10:43) Serum = 1223 0-100 complet or 017 IU/mL ed plasma 10:43 IgE measure ment (units/ v Comment: Performed at: [facility] Comment: [address] [place], [place] [id number] Comment: Speech Lang Path Therapist: Merlin Castaneda PhD, Phone: [phone] Antinuclear Antibodies, IFA (03-22-2017 10:43) Serum = . complet nuclear 017 Negativ ed 10:43 e antibod y titer by immunof l Comment: Negative <1:80 Comment: Borderline 1:80 Comment: Positive >1:80 Comment: Performed at: [facility] Comment: [address] [place], [place] [id number] Comment: Speech Lang Path Therapist: Merlin Castaneda PhD, Phone: [phone] CBC w auto diff (03-22-2017 10:43) Blood = 242 142-424 complet platele 017 K/mm3 ed t count 10:43 Automat = 9.6 7.4-10. complet ed 017 fl 4 ed blood 10:43 platele t mean volume patti Vernon % = 5.1 % 1.7-9.3 complet 017 [...] End Date Code Location Performer Type Date [facility] - 7 7 [facility] J[facility]ON - 7 7 [facility] - 7 7 [facility] J[facility]ON - 7 7 [facility] J[facility] - 6 6 [facility] - 5 5 [facility] J[facility] - 5 5 [facility] JASON - 5 5 [facility] Emergency JESSICA Swanson MD (ER) 3 06:43 3 07:24 [facility] Emergency JESSICA Mendoza (ER) 3 18:20 3 20:16 [facility] JESSICA Self (ER) 3 10:22 3 11:22 [facility] JASON - 3 3 [facility] JASON - 2 2 [facility]ASON - 2 2 [facility] JASON - 2 2 [facility] JASON - 1 1 [facility] JASON [facility] 1 1 [facility] UNIVERSIT - 0 0 Y OF [facility] 07-12-201 07-12-201 UNIVERSIT - 0 0 Y OF [facility] UNIVERSIT - 0 0 Y OF [facility] UNIVERSIT - 9 9 Y OF [facility] UNIVERSIT - 8 8 Y OF [facility] UNIVERSIT - 8 8 Y OF [facility]
--- OUTSIDE RECORDS SUMMARY | 2017-05-13 18:22 | External Medical Summary Rpt | CCD ---
Demographics Preferred Language French Marital Status Unknown Church Affiliation Unknown Race Unknown Ethnic Group Unknown Author Author , KAREN DAWSON Address Unknown Phone Immunization Unable to retrieve immunization data due to connection failure with Immunization Registry. Please try again later.
--- OUTSIDE RECORDS SUMMARY | 2017-05-13 18:22 | External Medical Summary Rpt | CCD ---
Demographics Preferred Language Tongan Marital Status Unknown Christian Affiliation Unknown Race Unknown Ethnic Group Unknown Author Author , KAREN DAWSON Address Unknown Phone Immunization Unable to retrieve immunization data due to connection failure with Immunization Registry. Please try again later.
--- OUTSIDE RECORDS SUMMARY | 2017-05-13 18:22 | External Medical Summary Rpt | CCD ---
Author Author , SAMIR Marques SAMIR Address Unknown Phone [email or web address] Care Team Providers Care Labor Delivery Specialist Name Role Phone A Jose GARCIA MD PSC, A Unavailable Unavailable Jose GARCIA MD PSC [facility] Unavailable Unavailable [place], [facility] [place] [facility]MA[facility]LOCH DOMENICA, Unavailable Unavailable [facility] DOMENICA LIYA JUNIOR, Unavailable Unavailable LIYA JUNIOR [facility] Unavailable Unavailable SERVICE, [facility] Royal LUNA, Royal LUNA Unavailable Unavailable TITO LEVAR, TITO Unavailable Unavailable [facility] Unavailable Unavailable INC, [facility] Unavailable Unavailable HOSPITAL P, [facility] Unavailable Unavailable IMAGING ASS, [facility] IVANA VALDIVIA, , Unavailable Unavailable IVANA G [facility], Unavailable Unavailable [facility] L[facility]Z TRA, LUTZ TRA Unavailable Unavailable [facility] Unavailable Unavailable SERVICES, [facility] EVGENY ALEXIS MD, Unavailable Unavailable MD [facility], Unavailable Unavailable PLLC, [facility], [facility] DERICK CAMPBELL, DERICK SHANNAN Unavailable Unavailable SONY MAYORGA JR, Unavailable Unavailable SONY MAYORGA JR, Unavailable Unavailable FREDERICK NGUYEN [facility], Unavailable Unavailable [facility] Unavailable Unavailable E[facility]ME, [facility] TALANOW ROL, TALANOW Unavailable Unavailable ROL BOB AVA, BOB AVA Unavailable Unavailable [facility] Unavailable Unavailable [facility], [facility] Unavailable Unavailable [facility] WEHRMAN III MONICA, Unavailable Unavailable WEHRMAN III ERIC WAGGONER Unavailable Unavailable [facility], Unavailable Unavailable [facility] Purpose Continuity of Care Document - 08-10-2007 through 2016 Problems Code Diagnosis DOS Provider Status R05 COUGH 04-09-2017 [facility] R0602 SHORTNESS 04-09-2017 [facility] R0902 HYPOXEMIA 04-09-2017 [facility] SERVICE R61 GENERALIZED 04-09-2017 [facility] HYPERHIDROS SERVICE IS J301 ALLERGIC [...] OTHER 03-22-2017 [facility] O09364 OTHER LONG 03-22-2017 [facility] CURRENT INC DRUG THERAPY J449 CHRONIC 03-17-2017 [facility] PULMONARY [place] DISEASE UNS J4550 SEVERE 03-17-2017 [facility] [place] UNCOMPLICAT ED G23810 UNSPECIFIED 03-10-2017 [facility] UNCOMPLICAT LLC ED I10 ESSENTIAL 01-01-2017 [facility], HYPERTENSIO PLLC N L509 URTICARIA 01-01-2017 [facility] UNSPECIFIED [facility]ICIANS, PLLC E119 TYPE 2 12-23-2016 [facility]ES [facility] MELLITUS INC WITHOUT COMPLICATIO NS N524CYI ANGIONEUROT 12-23-2016 [facility] IC EDEMA PHYSICIANS, INITIAL PLLC ENCOUNTER Z720 TOBACCO USE 12-23-2016 [facility] Q30346 UNSPECIFIED 07-31-2016 A Jose GARCIA AST[facility] PSC WITH ACUTE EXACERBATIO N J209 ACUTE 07-28-2016 [facility] UNSPECIFIED HOSPITAL P J440 COPD WITH 07-28-2016 [facility] P RESPIRATORY INFECTION J441 CHRONIC 11-12-2015 [facility] OBSTRUCTIVE [facility] PULMONARY INC DZ W/EXACERBAT ION M545 LOW BACK 11-12-2015 [facility] PAIN [facility] INC R0600 DYSPNEA 11-12-2015 [facility] R1032 LEFT LOWER 11-12-2015 [facility] O59818 PAIN IN 04-30-2015 [facility] KNEE [facility]ICAL [facility]ING ASS E1141 TYPE 2 04-25-2015 [facility] DIABETES PODIATRY MELLITUS W/DIAB MONONEUROPA THY L02219 SPONTANEOUS 04-25-2015 PROGRESSIVE RUPTURE PODIATRY FLEXOR TENDONS LT ANKLE FOOT J87403 PAIN IN 04-25-2015 PROGR[facility]IVE LEFT FOOT PODIATRY B353 TINEA PEDIS 04-23-2015 [facility] INC 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 INC S 07245 OBSTRUCTIVE 03-12-2015 [facility] EQU[facility] 24090 ASTHMA, 03-06-2015 [facility] UNSPECIFIED STATUS 33482 DIAB W/O 02-27-2015 [facility] COMP TYPE MEDICAL II/UNS TYPE EQUIPME UNCNTRL 4019 UNSPECIFIED 12-30-2014 [facility] ESSENTIAL [facility] HYPERTENSIO INC N 486 PNEUMONIA, 12-30-2014 [facility]ISM [facility] UNSPECIFIED INC 496 CHRONIC 12-30-2014 [facility] OBSTRUCTION INC NEC 20553 SHORTNESS 12-30-2014 [place] [facility] 7862 COUGH 12-30-2014 [facility] 38990 CHEST PAIN 12-06-2014 [facility] 18489 ABDOMINAL 10-19-2014 [place] PAIN, MEDICAL UNSPECIFIED IMAGING ASS SITE 5180 PULMONARY 04-19-2014 [facility]SE [facility] 14268 PAINFUL 02-21-2014 [facility] RESPIRATION 46241 ASTHMA 10-09-2013 ERIC YOUNGER UNSPECIFIED WITH EXACERBATIO N 77228 WHEEZING 10-09-2013 [facility] V140 PERSONAL 10-09-2013 [facility] HISTORY OF [facility] ALLERGY TO [facility] P PENICILLIN 3804 IMPACTED 06-12-2013 [facility] EMERGENCY SERVICES 03067 OTHER 10-04-2012 [facility] NONSPECIFIC MEDICAL ABNORMAL IMAGING ASS FINDING OF LUNG FIELD 19171 OBSTRUCTIVE 09-25-2012 [facility] BRONCHITIS HOSPITAL P WITH EXACERBATIO [...] DISTURBANCE 11-26-2011 TALMANSOORW ROL OF SKIN SENSATION 61275 OTHER 10-10-2009 Royal LUNA D[place] [address] HIGH 10-03-2009 DERICK CAMPBELL ALTITUDE PERIODIC BREATHING 47706 EXTRINSIC 10-03-2009 DERICK CAMPBELL ASTHMA, UNSPECIFIED V472 OTHER 10-03-2009 DERICK CAMPBELL CARDIORESPI RATORY PROBLEMS V0481 NEED 04-23-2009 [facility] PROPHYLACTSONY Mercado JR VACCINATION &INOCULATIO N FLU 06147 OTHER 04-15-2009 [facility] DISEASES OF (P1017) LUNG NOT UNIV RADIOL ELSEWHERE ASSOC CLASSIFIED 02603 ACUTE 04-15-2009 EVGENY ALEXIS BRONCHOSPSTEFFEN Guerra 12958 PAIN IN 11-05-2008 [facility] JOINT, (P1017) ANKLE AND UNIV RADIOL FOOT ASSOC 38665 UNSPECIFIED 11-05-2008 SANDI, SITE OF LIYA Guerra ANKLE SPRAIN AND STRAIN E8888 OTHER FALL 11-05-2008 LIYA JUNIOR 1629 MALIGNANT 05-06-2008 [facility], NEOPLASM INC BRONCHUS&EVON NG UNSPEC SITE 48347 OBST 04-27-2008 [facility] CHRONIC SONY SCHREIBER BRONCHITIS W/ACUTE BRONCHITIS 44897 UNSPECIFIED 11-23-2007 [place] [facility] OF [facility]NEA [facility] 08299 OTHER 11-23-2007 [place] MAL[facility]ISE AND OF FATIGUE [facility] 7840 HEADACHE 11-23-2007 [facility] 7806 FEVER & OTH 08-10-2007 IVANA [...] End Date Code Location Performer Type Date [facility] JASON - 7 7 [facility] JASON - 7 7 [facility] JASON - 7 7 [facility] - 7 7 [facility]ASON - 6 6 [facility] JASON - 5 5 [facility]ASON - 5 5 [facility]ON - 5 5 [facility]ASON - 3 3 [facility] JASON - 2 2 [facility]ASON - 2 2 [facility]ASON - 2 2 [facility] JASON - 1 1 [facility] JASON - 1 1 [facility] - 0 0 [facility] - 0 0 Y [facility] UNIVERSIT - 0 0 Y OF [facility] UNIVERSIT - 9 9 Y [facility] UNIVERSIT - 8 8 Y [facility] UNIVERSIT - 8 8 Y OF [facility]
--- OUTSIDE RECORDS SUMMARY | 2017-05-13 18:22 | External Medical Summary Rpt | CCD ---
Author Author , SAMIR Marques SAMIR Address Unknown Phone Care Team Providers Care Turkish Rubber Name Role Phone A Jose GARCIA MD [facility], A Unavailable Unavailable Jose GARCIA MD [facility] Unavailable Unavailable [place], [facility] [place] [facility] DOMEN[facility], Unavailable Unavailable [facility] LIYA JUNIOR, Unavailable Unavailable LIYA JUNIOR [facility] Unavailable Unavailable SERVICE, [facility] Royal LUNA, Royal LUNA Unavailable Unavailable TITO LEVAR, TITO Unavailable Unavailable LEVAR [facility] Unavailable Unavailable INC, [facility] Unavailable [facility]available HOSPITAL P, [facility] Unavailable Unavailable IMAGING [facility], [facility] IVANA VALDIVIA, , Unavailable Unavailable IVANA G [facility], Unavailable Unavailable [facility] LUTZ TRA, LUTZ TRA Unavailable Unavailable [facility] Unavailable Unavailable SERVICES, [facility] EVGENY ALEXIS MD, Unavailable Unavailable MD [facility], Unavailable Unavailable [facility], [facility] DERICK CAMPBELL, DERICK SHANNAN Unavailable Unavailable SONY MAYORGA JR, Unavailable Unavailable SONY MAYORGA JR, Unavailable Unavailable [facility]ER[facility] NGUYEN [facility], Unavailable Unavailable [facility] Un[facility] E[facility], [facility] TALANOW ROL, TALANOW Unavailable Unavailable ROL BOB AVA, BOB AVA Unavailable [facility]available [facility] Unavailable Unavailable [facility] Unavailable Unavailable [facility] WEHRMAN III MONICA, Unavailable Unavailable WEHRMAN III ERIC WAGGONER Unavailable Unavailable [facility], Unavailable Unavailable [facility] Purpose Continuity of Care Document - 08-10-2007 through 2016 Problems Code Diagnosis DOS Provider Status R05 COUGH 04-09-2017 [facility] R0602 SHORTNESS 04-09-2017 [facility] R0902 HYPOXEMIA 04-09-2017 [facility] R61 GENERALIZED 04-09-2017 [facility] HYPERHIDROS SERVICE IS J301 ALLERGIC [...] OTHER 03-22-2017 [facility] P27661 OTHER LONG 03-22-2017 [facility] CURRENT INC DRUG THERAPY J449 CHRONIC 03-17-2017 [facility] PULMONARY [place] DISEASE UNS J4550 SEVERE 03-17-2017 [facility] UNCOMPLICAT ED L06262 UNSPECIFIED 03-10-2017 [facility] ED I10 ESSENTIAL 01-01-2017 [facility] HYPERTENSIO PLLC N L509 URTICARIA 01-01-2017 [facility]PEC[facility], PLLC E119 TYPE 2 12-23-2016 [facility]ETES [facility] MELLITUS INC WITHOUT COMPLICATIO NS O706GVV ANGIONEUROT 12-23-2016 [facility] IC EDEMA [facility], INITIAL PLLC ENCOUNTER Z720 TOBACCO USE 12-23-2016 [facility] W96064 UNSPECIFIED 07-31-2016 A Jose GARCIA [facility] WITH ACUTE EXACERBATIO N J209 ACUTE 07-28-2016 [facility] P J440 COPD WITH 07-28-2016 [facility] RESPIRATORY INFECTION J441 CHRONIC 11-12-2015 [facility]CTIVE [facility] PULMONARY INC DZ W/EXACERBAT ION M545 LOW BACK 11-12-2015 [facility] PAIN [facility] INC R0600 DYSPNEA 11-12-2015 [facility] R1032 LEFT LOWER 11-12-2015 [facility] M77644 PAIN IN 04-30-2015 [facility] E1141 TYPE 2 04-25-2015 [facility] MELLITUS W/DIAB MONONEUROPA THY Y54252 SPONTANEOUS 04-25-2015 [facility] RUPTURE [facility]ODI[facility] FLEXOR TENDONS LT ANKLE FOOT U10522 PAIN IN 04-25-2015 [facility] LEFT FOOT PODIATRY B353 TINEA PEDIS 04-23-2015 [facility] 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 INC S 67485 OBSTRUCTIVE 03-12-2015 [facility] 05846 ASTHMA, 03-06-2015 [facility] UNSPECIFIED STATUS 07324 DIAB W/O 02-27-2015 [facility] TYPE MEDICAL II/UNS TYPE EQUIPME UNCNTRL 4019 UNSPECIFIED 12-30-2014 [facility] ESSENTIAL [facility] HYPERTENSIO INC N 486 PNEUMONIA, 12-30-2014 [facility] ORGANISM [facility] UNSPECIFIED INC 496 CHRONIC 12-30-2014 [facility] OBSTRUCTION INC NEC 21907 SHORTNESS 12-30-2014 [facility] 7862 COUGH 12-30-2014 [facility] 19016 CHEST PAIN 12-06-2014 [facility] 04356 ABDOMINAL 10-19-2014 [facility] PAIN, MEDICAL UNSPECIFIED IMAGING ASS SITE 5180 PULMONARY 04-19-2014 [facility] 13835 PAINFUL 02-21-2014 [facility] RESPIRATION 48390 ASTHMA 10-09-2013 ERIC YOUNGER UNSPECIFIED WITH EXACERBATIO N 91465 WHEEZING 10-09-2013 [facility] V140 PERSONAL 10-09-2013 [facility] HISTORY OF [facility] ALLERGY TO [facility] P PENICILLIN 3804 IMPACTED 06-12-2013 [facility] EMERGENCY SERVICES 97892 OTHER 10-04-2012 [facility] NONSPECIFIC MEDICAL ABNORMAL IMAGING ASS FINDING OF LUNG FIELD 78858 OBSTRUCTIVE 09-25-2012 [facility] CHRONIC [facility] BRONCHITIS HOSPITAL P WITH EXACERBATIO N [...] DISTURBANCE 11-26-2011 TALMANSOORW ROL OF SKIN SENSATION 24254 OTHER 10-10-2009 Royal LUNA [place] [address] HIGH 10-03-2009 DERICK CAMPBELL [facility] 93271 EXTRINSIC 10-03-2009 DERICK CAMPBELL ASTHMA, UNSPECIFIED V472 OTHER 10-03-2009 DERICK CAMPBELL CARDIORESPI RATORY PROBLEMS V0481 NEED 04-23-2009 [facility] PROPHYLACTSONY Mercado JR VACCINATION &INOCULATIO N FLU 48376 OTHER 04-15-2009 [facility] DISEASES OF (P1017) LUNG NOT UNIV RADIOL ELSEWHERE ASSOC CLASSIFIED 63029 ACUTE 04-15-2009 EVGENY ALEXIS BRONCHOSPSTEFFEN Guerra 53807 PAIN IN 11-05-2008 [facility] JOINT, (P1017) ANKLE AND UNIV RADI[facility] FOOT ASSOC 99175 UNSPECIFIED 11-05-2008 SANDI, SITE OF LIYA Guerra ANKLE SPRAIN AND STRAIN E8888 OTHER FALL 11-05-2008 LIYA JUNIOR 1629 MALIGNANT 05-06-2008 [facility], NEOPLASM INC BRONCHUS&EVON NG UNSPEC SITE 83752 OBST 04-27-2008 [facility] CHRONIC SONY SCHREIBER BRONCHITIS W/ACUTE BRONCHITIS 38183 UNSPECIFIED 11-23-2007 [facility] SLEEP OF AP[facility] 38041 OTHER 11-23-2007 MILAN MALAISE AND OF FATIGUE [facility] 7840 HEADACHE 11-23-2007 [facility] 7806 FEVER & OTH 08-10-2007 IVANA VALDIVIA [...] [facility] - 7 7 [facility] JASON - 7 7 [facility] JASON - 7 7 [facility] JASON - 7 7 [facility] JASON - 6 6 [facility] JASON - 5 5 [facility] JASON - 5 5 [facility] JASON - 5 5 [facility] JASON - 3 3 [facility] JASON - 2 2 [facility] JASON - 2 2 [facility] JASON - 2 2 [facility] JASON - 1 1 [facility] JASON - 1 1 [facility] - 0 0 [facility] 0 [facility] - 0 0 Y [facility] UNIVERS[facility] - 9 9 Y [facility] UNIVERSIT - 8 8 Y OF [facility] UNIVERSIT - 8 8 Y OF [facility]
--- NOTE | 2017-05-13 18:30 | Emergency Room Report ---
History of Present Illness Time Seen by 1800 Presenting Problem in Triage Pt arrived:Walked Presenting Problem:PT ADVISES HE FEELS LIKE HIS HEART IS FLUTTERING. ADVISES THE SENSATION STARTED AROUND 1630 AND COMES AND GOES. 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 N Clinical Suspician of Infection? N Mental Status: 1 - Regular (Normal Baseline) Sepsis Risk:Low Sepsis Risk Have you (or family members/close friends) recently traveled outside the [place]? N If Yes, where/when: Have you had exposure to infectious disease within the past month? N TB? Other? Specify: Patient seen in ED two days ago with palpitations, placed on Holter monitor, and had an episode this afternoon at 1430, brief, self resolving. No calf pain. Not SOB. Hx asthma, which is stable. No chest pain today. No n/v. ALLERGIES Coded Allergies: Penicillins (I-HIVES 07/29/16) Home Medications Active Scripts IPRATROPIUM/ALBUTEROL SULFATE (Iprat-Albut 0.5-3(2.5) MG/3 Ml) 3 ML IH QIDP PRN wheezing, sob #30 AMP Prov: 07/28/16 Reported Medications ALBUTEROL (Albuterol 0.083% Neb) 2.5 MG IN QIDP Tiotropium [place] (Spiriva) 18 MCG IH DAILY Montelukast Sodium (Singulair) 10 MG PO QAM ALBUTEROL (Ventolin Hfa) 1 PUFF IH Q6H6 PRN SHORTNESS OF BREATH BUDESONIDE/FORMOTEROL FUMARATE (Symbicort 160-4.5 Mcg Inhaler) 1 PUFF IH BID LINAGLIPTIN/METFORMIN HCL (Jentadueto 2.5 MG-1000 MG Tab) 1 TAB PO BID #60 Amlodipine Besylate (Amlodipine) 5 MG PO DAILY #90 History Medical History General CAD? No Angina: No NV: No Hypertension? Yes Hyperlipidemia? No CHF? No DVT? No PE? No COPD? Yes Asthma? Yes Anemia? No GERD? No Gastric ulcers? No GI Bleed? No Hernia? No Thyroid Problems? No Hypothyroidism? No CVA? No Seizures? No Diabetes? Yes Insulin Dependent: No Insulin Pump: No Home FSBS? Yes Renal Insuffiency? No End Stage Renal Disease? No UTI? No Stones? No BPH? No GB Disease: No Nephritic Syndrome? No Asplenia? No Hepatitis? No Sickle Cell Disease? No Arthritis? No Migraines? No Cataracts? No Glaucoma? No MRSA? No HIV? No TB? No Anxiety? No Depression? No Cancer? No More? No Immunization Hx DT/Tetanus > 10 YRS Surgical Hx Previous Surgery?Y CIRCUMCISION Social History Smoking Hx Smoker: Current Every Day Smoker Tobacco: Yes Type Cigarettes Packs/day < 1 Pack Alcohol Alcohol: Yes Review of Systems All Other Systems Reviewed and Negative Cardiovascular see HPI Physical Exam Vital Signs Vital Signs Date Time Temp Pulse Resp B/P Pulse O2 O2 Flow FiO2 Ox Delivery Rate 05/13 1756 98.1 102 16 151/89 98 General Appearance normal appearance, WD/WN, no apparent distress, obese Eye Exam - bilateral eye normal exam, bilateral eye PERRL, bilateral eye EOMI Neck normal inspection, non-tender, supple, full range of motion Respiratory Status Yes: trachea midline, chest symmetrical, non tender chest. No: respiratory distress, tender on palpation, use of accessory muscles, pain on inspiration, pain on expiration, productive cough, non productive cough. Lung Sounds bilateral: normal breath sounds, lungs clear. Cardiovascular normal exam, regular rate/rhythm, no peripheral edema, no gallop, no JVD, no murmur, no rub, normal peripheral pulses Gastrointestinal normal bowel sounds, normal exam, non tender, soft, no organomegaly, no pulsatile mass, no guarding, no rebound Extremities non-tender, normal range of motion, normal inspection, normal capillary refill, no calf tenderness, no pedal edema Strength 5 Upper Ext (L), 5 Upper Ext (R), 5 Lower Ext (L), 5 Lower Ext (R) Neurologic alert, normal exam, no motor/sensory deficits, oriented x 3 Glascow Coma Scale Glascow Coma Scale Response Value EYE response: 4 Spontaneously 4 MOTOR response: 6 OBEYS 6 VERBAL response: 5 Oriented & Converses 5 Total 15 Skin intact, normal color, warm/dry Medical Decision Making LABS/Meds/Orders Pt receiving controlled substance in ED? No Results/Orders Laboratory Tests 05/13/171804: TSH 4.81 H, Free T4 Index 6.2, Thyroxine (T4) 6.9, T3 Uptake 36 05/13/171804: Sodium 143, Potassium 3.8, Chloride 106, Carbon Dioxide 30, BUN 15, Creatinine 1.2, Estimated Creat Clear 146, Estimated GFR (MDRD) 65, Glucose 72 L, Calcium 9.3, Total Bilirubin 0.5, AST 13 L, ALT 34, Alkaline Phosphatase 64, Creatine Kinase 236, CK-MB (CK-2) Rel Index 0.7, CK and CKMB Interp 1.6, Troponin I < 0.02, Total Protein 7.6, Albumin 3.8, Globulin 3.8 H, Albumin/Globulin Ratio 1.0 L, WBC 8.6, RBC 5.42, Hgb 16.1, Hct 48.2, MCV 89.0, RDW 12.9, Plt Count 268 , MPV 8.2, Gran % 55.1, Gran # 4.8, Lymphocytes % 30.1, Monocytes % 6.2, Eosinophils % 7.8, Basophils % 0.8, Lymphocytes # 2.6, Monocytes # 0.5, Eosinophils # 0.7 H, Basophils # 0.1, PUBS MCHC 33.5, MCH 29.8 Current Medication Orders Sig/Bethany Start time Last Medication Dose Route Stop Time Status Admin Sodium Chloride 10 ML PRN PRN 05/13 1800 AC IV 05/14 1759 Orders Procedure Date/time Status THYROID PANEL 2 (WITH TSH) 05/13 1801 Complete ELECTROCARDIOGRAM REQUEST 05/13 1800 Active CHEST(2 VIEWS-NOT PORTABLE) 05/13 1800 Active IV SALINE LOCK 05/13 1800 Active CBC WITH AUTO DIFF 05/13 1800 Complete CARDIAC ENZYMES 05/13 1800 Complete CHEM 12 PROFILE 05/13 1800 Complete CM/EKG CM/EKG EKG no evid. of ischemic chgs, no ectopy, normal QRS, normal IA, normal EKG ( Stach 101) XRAY/CT/US XRAY/CT/US XRAY chest XR interpretation by reviewed by me (report reviewed) Xray Results abnormal (JOSÉ patchy infiltrate ) Departure Departure Time of Disposition 1900 Disposition DC Home or Self Care(routine) Clinical Impression Primary Impression: Palpitations Secondary Impressions: Infiltrate noted on imaging study Condition STABLE Referrals Tom Whelan MD (Family) Patient Instructions Pneumonia-Adult Additional Instructions Chest xray showed possible pneumonia but bloodwork normal so will Rx Zithromax to cover for possible early pneumonia as seen on xray; see Dr. Whelan for follow up in two to four days. Discharge Counseling Counseled pt/family regarding diagnosis, test results, medications/RX, home care, follow up needs Prescriptions Current Visit Scripts Azithromycin (Avpak Azithromycin) 250 MG PO DAILY #6 TAB one Z pack over five days as directed ED Critical Care Critical Care No at 8911
[2017-05-13 18:47] LABS: FREE THYROXIN INDEX 6.2 ug/dl (5.93-13.13)
[2017-05-13 18:56] LABS: BUN 15 mg/dL (7-18)
[2017-05-13 18:57] LABS: GFR (ESTIMATED) 65 ML/MIN (>60)
[2017-05-13] MEDS ORDERED: AVPAK AZITHROM250 MG PO (19:03)
[2017-05-13 19:16] VITALS: BP 113/80
--- NOTE | 2017-05-13 20:54 | RADIOLOGY REPORT PS360 ---
CHEST(2 VIEWS-NOT PORTABLE) HISTORY: HEART FLUTTERING, tobacco use ORDERING PHYSICIAN: Frances Waters MD PATIENT AGE: 47 years COMPARISON: 05/11/2017 FINDINGS: The cardiomediastinal silhouette and pulmonary vascularity are within normal limits. Atelectatic changes are present in the right middle lobe somewhat accentuated by right pericardial fat pad. The remaining lungs are clear. No acute bony anomalies or effusion. IMPRESSION: New right middle lobe atelectasis.
== END 2017-05-13 19:17 | disposition home or self-care (01) ==
LOC: ER 17:55
PROVIDERS: Emergency Medicine
DX: R00.2 Palpitations (principal); I48.92 Unspecified atrial flutter; E11.9 Type 2 diabetes mellitus without complications; F17.210 Nicotine dependence, cigarettes, uncomplicated; I10 Essential (primary) hypertension; Z88.0 Allergy status to penicillin

== ENCOUNTER 2017-05-31 08:36 | Outpatient (CLI) | payer MEDICARE, MEDICAID ==
[~2017-05-31 08:36] MED LIST changes: +AVPAK AZITHROM250 MG PO
[2017-05-31 10:00] VITALS: BP 138/94
[2017-05-31 10:25] VITALS: BP 121/81
[2017-05-31] MEDS ORDERED: JENTADUETO1 TAB PO (10:31)
[2017-05-31 10:33] VITALS: BP 152/98
[2017-05-31 11:00] VITALS: BP 133/68
[2017-05-31 11:30] VITALS: BP 137/83
== END 2017-05-31 11:40 | disposition home or self-care (01) ==
LOC: COP 08:36
DX: J45.20 Mild intermittent asthma, uncomplicated (principal)
CPT/HCPCS: J2357